=== PATIENT | male | born 1970 | race Caucasian/White ===

== ENCOUNTER 2016-10-30 22:07 | Emergency (ER) | payer MEDICARE, MEDICAID ==
[~2016-10-30 22:07] MED LIST: /CELE20CA PO; CITA10TA2 PO; HYDR5TAB23 PO; LISI5TAB PO; NEUR600T PO; OMEP40CA2 PO; OXYC20TA8 PO; PRAV80TA2 PO; VENTAER INH
[2016-10-30] MEDS ORDERED: HYDROmorphone HCL 1 MG/ML SYRINGE (J1170) As Ordered ONE ×2 (22:56→23:32)
[2016-10-30] MEDS ORDERED: NORCO, ANEXSIA 5/325MG TABLET (HYDROcodone/ACETAMINOPHEN) As Ordered ONE (23:58)
--- NOTE | 2016-10-31 00:07 | EDDOCDS ---
Nurse's Notes [facility] Name: Ziggy Thayer Age: 46 yrs Sex: Male : 1970 Arrival Date: 10/30/2016 Time: 22:07 Bed 14 Private MD: Delmy, Family Dr Diagnosis: Fracture of one rib, left side Presentation: 10/30 22:14 Presenting complaint: Patient states: chest pain, difficulty breathing, fell on ice af2 last Sunday and c/o pain to left ribs. Adult Sepsis Screening: The patient does not have new or worsening altered mentation. Patient has a respiratory rate of greater than or equal to 22 (1 point). Systolic blood pressure is greater than 100. Patient has a qSOFA score of 1- Negative Sepsis Screen. Suicide/Homicide risk assessment- the patient denies having any suicidal and/or homicidal ideations and does not present with any other emotional, behavioral or mental health complaints. Status: Patient is not a auto self service station attendant or dependent. Transition of care: patient was not received from another setting of care. 22:14 Acuity: LOCO Level 2 af2 22:14 Method Of Arrival: Walkin/Carried/Asstd af2 Triage Assessment: 22:20 General: Appears distressed, Behavior is cooperative. Pain: Location: Ribs Pain af2 currently is 10 out of 10 on a pain scale. HIV screening NA for this visit Offered previously. Respiratory: Onset: The symptoms/episode began/occurred a few days ago, Airway is patent Respiratory effort is labored, Breath sounds are diminished bilaterally. Breath sounds with wheezes bilaterally. Derm: Skin is normal. Historical: - Allergies: PENICILLINS (Upset stomach); Aspirin (Hives); - Home Meds: 1. morphine 15 mg Oral TbER 1 tab every 12 hours (Last dose: 10/30/2016 18:00) 2. hydrocodone-acetaminophen 10-325 mg Oral tab every 4 hours 3. pravastatin 80 mg oral tab 1 tab once daily 4. omeprazole 40 mg Oral cpDR 1 cap once daily 5. lisinopril 20 mg Oral tab once daily 6. carvedilol 6.25 mg oral tab Unknown - PMHx: Anxiety; GERD; herniated disc; hyperlipidemia; Hypertension; [place]; - PSHx: Hernia repair; foot surgery left; - Social history: Smoking status: Patient uses tobacco products, current every day smoker. No barriers to communication noted, The patient speaks fluent Macedonian. - Family history: Not pertinent. - : The pt / caregiver states he / she is not on anticoagulants. Home medication list is obtained from the patient. - Exposure Risk Screening:: None identified. Screenin:29 Screening information is obtained from the patient. Fall risk: No risks identified. af2 Assistance ADL's: requires no assistance with activities of daily living. Abuse/DV Screen: The patient / caregiver reports he/she is: not in a situation that causes fear, pain or injury. Nutritional screening: No deficits noted. Advance Directives: Currently, there is no health care proxy. home support is adequate. Assessment: 23:20 General: Appears in no apparent distress, comfortable, Behavior is appropriate for age, af2 cooperative. Cardiovascular: Heart tones S1 S2 present. Respiratory: Airway is patent Respiratory effort is labored, Breath sounds are diminished bilaterally. Derm: Skin is normal. 23:39 General: pt educated regarding importance of deep breaths, splinting the left side with af2 a pillow. demonstrates understanding.. 10/31 00:05 General: Appears in no apparent distress, comfortable, Behavior is appropriate for age, af2 cooperative. Neurological: Level of Consciousness is awake, alert, obeys commands, Oriented to person, place, time. Respiratory: Airway is patent Respiratory effort is even, unlabored. Derm: Skin is normal. Vital Signs: 10/30 22:08 BP 121 / 71; Pulse 96; Resp 22 S; Temp 96.3; Pulse Ox 97% on R/A; Weight 82.55 kg (R); dd6 Height 5 ft. 6 in. (167.64 cm) (R); 23:30 BP 129 / 75 LA Sitting (auto/); Pulse 96; Resp 18 S; Pulse Ox 95% on R/A; af2 23:59 BP 135 / 75; Pulse 95; Resp 18; Temp 97.3(O); Pulse Ox 94% on R/A; Pain 10/10; meghan 22:08 Body Mass Index 29.38 (82.55 kg, 167.64 cm) dd6 Vitals: 22:08 Log In Time: October 30, 2016 at 22:06. dd6 ED Course: 22:08 Patient visited by Desormeau, Nik, ORGANIZATIONAL DEVELOPMENT DIRECTOR. dd6 22:08 Unknown, Family is Private Physician. dd6 22:08 Patient moved to Waiting dd6 22:09 Patient moved to Pre RCE dd6 22:12 Velma Ding,AKANKSHA is Primary Nurse. ar3 22:12 Deyanira Gaitan RN is Primary Nurse. ar3 22:12 Patient moved to 14 ar3 22:15 Triage Initiated af2 22:22 Patient visited by Deyanira Gaitan RN. af2 22:24 Andrew Hilliard DO is Attending Physician. cs11 22:24 Patient visited by Andrew Hilliard DO. cs11 22:30 Patient visited by Madison Cifuentes, Screen Writer. jlm 22:30 EKG done. (by ED staff). Reviewed by Andrew Hilliard DO. jlm 23:02 Patient visited by Deyanira Gaitan RN. af2 23:21 Patient visited by Deyanira Gaitan RN. af2 23:29 The patient / caregiver is instructed regarding the plan of care and ED course. Patient af2 has correct armband on for positive identification. Placed in gown. 23:30 Patient visited by Deyanira Gaitan RN. af2 23:40 Patient visited by Deyanira Gaitan RN. af2 23:59 Patient visited by Nohelia Ornelas PCA. meghan 10/31 00:06 No IV's were initiated during this patient's visit. No procedures done that require af2 assistance. Administered Medications: 10/30 23:01 Drug: Dilaudid - HYDROmorphone 1 mg [hydromorphone 1 mg/mL injection syringe (1 mL)] af2 Route: IM; Site: left deltoid; 10/31 00:05 Follow up: Response: No significant change. af2 10/30 23:39 Drug: Dilaudid - HYDROmorphone 1 mg [hydromorphone 1 mg/mL injection syringe (1 mL)] af2 Route: IM; Site: right deltoid; 10/31 00:05 Follow up: Response: Pain is decreased af2 00:04 Drug: HYDROcodone-acetaminophen 4 pack- 1 packets [hydrocodone 5 mg-acetaminophen 325 af2 mg tablet (1 tabs)] {Co-Signature: nn1 (Qiana Ro RN).} Route: PO; 00:05 Follow up: Response: Pt left department before re-evaluation is appropriate af2 Order Results: There are currently no results for this order. Outcome: 10/30 23:34 Discharge ordered by Provider. cs11 10/31 00:06 Discharge Assessment: Patient awake, alert and oriented x 3. No cognitive and/or af2 functional deficits noted. Patient verbalized understanding of disposition instructions. patient administered narcotics - yes. Pt provided with safe discharge. The following High Risk Discharge criteria are identified: None. Discharged to home ambulatory, with family. Condition: stable. Discharge instructions given to patient, Instructed on discharge instructions, follow up and referral plans. medication usage, no driving heavy equipment, no drinking with medication, Demonstrated understanding of instructions, medications, Pt was receptive of discharge instructions/ teaching. No special radiology studies were completed. Property :Personal belongings accompany Pt. 00:06 Patient left the ED. af2 Signatures: Nik Hare, ORGANIZATIONAL DEVELOPMENT DIRECTOR ORGANIZATIONAL DEVELOPMENT DIRECTOR dd6 Ban Felder, ORGANIZATIONAL DEVELOPMENT DIRECTOR ORGANIZATIONAL DEVELOPMENT DIRECTOR ar3 Nohelia Ornelas, ORGANIZATIONAL DEVELOPMENT DIRECTOR ORGANIZATIONAL DEVELOPMENT DIRECTOR meghan Andrew Hilliard, DO cs11 Madison Cifuentes, Screen Writer Unit Deyanira Canales,RN RN af2 Qiana Ro RN nn1 AXEL
--- NOTE | 2016-10-31 00:07 | EDDOCDS ---
Physician Documentation [facility] Name: Ziggy Thayer Age: 46 yrs Sex: Male : 1970 Arrival Date: 10/30/2016 Time: 22:07 Bed 14 Private MD: Unknown, Family Dr Disposition: 10/30/16 23:34 Discharged to Home/Self Care. Impression: Fracture of one rib, left side. - Condition is Stable. - Discharge Instructions: Rib Fracture. - Medication Reconciliation, Local Pharmacy Hours form. - Follow up: Private Physician; When: Call to arrange an appointment; Reason: Recheck today's complaints. - Problem is new. - Symptoms are unchanged. Historical: - Allergies: PENICILLINS (Upset stomach); Aspirin (Hives); - Home Meds: 1. morphine 15 mg Oral TbER 1 tab every 12 hours (Last dose: 10/30/2016 18:00) 2. hydrocodone-acetaminophen 10-325 mg Oral tab every 4 hours 3. pravastatin 80 mg oral tab 1 tab once daily 4. omeprazole 40 mg Oral cpDR 1 cap once daily 5. lisinopril 20 mg Oral tab once daily 6. carvedilol 6.25 mg oral tab Unknown - PMHx: Anxiety; GERD; herniated disc; hyperlipidemia; Hypertension; [place]; - PSHx: Hernia repair; foot surgery left; - Social history: Smoking status: Patient uses tobacco products, current every day smoker. No barriers to communication noted, The patient speaks fluent Ethiopian. - Family history: Not pertinent. - : The pt / caregiver states he / she is not on anticoagulants. Home medication list is obtained from the patient. - Exposure Risk Screening:: None identified. Vital Signs: 10/30 22:08 BP 121 / 71; Pulse 96; Resp 22 S; Temp 96.3; Pulse Ox 97% on R/A; Weight 82.55 kg / dd6 181.99 lbs (R); Height 5 ft. 6 in. (167.64 cm) (R); 23:30 BP 129 / 75 LA Sitting (auto/); Pulse 96; Resp 18 S; Pulse Ox 95% on R/A; af2 23:59 BP 135 / 75; Pulse 95; Resp 18; Temp 97.3(O); Pulse Ox 94% on R/A; Pain 10/10; meghan 22:08 Body Mass Index 29.38 (82.55 kg, 167.64 cm) dd6 MDM: 22:13 ECG WITH READING ER PHYS+CARDIAG ordered. EDMS 22:27 Chest, 2 View (pa\E\lat) Ordered. EDMS 22:27 Ribs-Uni Without PA Chest Ordered. EDMS 22:51 Dilaudid - HYDROmorphone 1 mg IM once ordered. cs11 23:27 Dilaudid - HYDROmorphone 1 mg IM once ordered. cs11 23:33 HYDROcodone-acetaminophen 4 pack- 5 mg-325 mg 1 packets PO Per package directions; cs11 Dispense with patient. 1 po q4h prn for pain ordered. Administered Medications: 23:01 Drug: Dilaudid - HYDROmorphone 1 mg [hydromorphone 1 mg/mL injection syringe (1 mL)] af2 Route: IM; Site: left deltoid; 10/31 00:05 Follow up: Response: No significant change. af2 10/30 23:39 Drug: Dilaudid - HYDROmorphone 1 mg [hydromorphone 1 mg/mL injection syringe (1 mL)] af2 Route: IM; Site: right deltoid; 10/31 00:05 Follow up: Response: Pain is decreased af2 00:04 Drug: HYDROcodone-acetaminophen 4 pack- 1 packets [hydrocodone 5 mg-acetaminophen 325 af2 mg tablet (1 tabs)] {Co-Signature: nn1 (Qiana Ro RN).} Route: PO; 00:05 Follow up: Response: Pt left department before re-evaluation is appropriate af2 Signatures: Dispatcher [employer] EDAndrew Gil DO DO cs11 Deyanira Gaitan RN RN af2 Qiana Ro RN nn1 MTDD
--- NOTE | 2016-10-31 08:16 | REP ---
PA and lateral chest two views: Comparison is 10/30/2013. There is no pneumothorax, hemothorax or pulmonary contusion. Lung hernandez are clear. Cardiac size is normal. The renetta, mediastinum, and bony thorax unremarkable. I suspect there is a hiatal hernia. Impression: Negative chest except for probable hiatal hernia. Signed by Reji Morrow MD 10/31/2016 08:08 A
--- NOTE | 2016-10-31 08:18 | REP ---
Left ribs five views: There is no rib fracture or other rib abnormality. Signed by Reji Morrow MD 10/31/2016 08:09 A
--- NOTE | 2016-10-31 10:14 | ECGEPIP ---
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
--- NOTE | 2016-11-02 01:08 | EDDOCDS ---
Physician Documentation [facility] Name: Ziggy Thayer Jr Age: 46 yrs Sex: Male : 1970 Arrival Date: 10/30/2016 Time: 22:07 Bed 14 Private MD: Unknown, Family Dr Disposition: 10/30/16 23:34 Discharged to Home/Self Care. Impression: Fracture of one rib, left side. - Condition is Stable. - Discharge Instructions: Rib Fracture. - Medication Reconciliation, Local Pharmacy Hours form. - Follow up: Private Physician; When: Call to arrange an appointment; Reason: Recheck today's complaints. - Problem is new. - Symptoms are unchanged. Historical: - Allergies: PENICILLINS (Upset stomach); Aspirin (Hives); - Home Meds: 1. morphine 15 mg Oral TbER 1 tab every 12 hours (Last dose: 10/30/2016 18:00) 2. hydrocodone-acetaminophen 10-325 mg Oral tab every 4 hours 3. pravastatin 80 mg oral tab 1 tab once daily 4. omeprazole 40 mg Oral cpDR 1 cap once daily 5. lisinopril 20 mg Oral tab once daily 6. carvedilol 6.25 mg oral tab Unknown - PMHx: Anxiety; GERD; herniated disc; hyperlipidemia; Hypertension; [place]; - PSHx: Hernia repair; foot surgery left; - Social history: Smoking status: Patient uses tobacco products, current every day smoker. No barriers to communication noted, The patient speaks fluent Sinhala. - Family history: Not pertinent. - : The pt / caregiver states he / she is not on anticoagulants. Home medication list is obtained from the patient. - Exposure Risk Screening:: None identified. Vital Signs: 10/30 22:08 BP 121 / 71; Pulse 96; Resp 22 S; Temp 96.3; Pulse Ox 97% on R/A; Weight 82.55 kg / dd6 181.99 lbs (R); Height 5 ft. 6 in. (167.64 cm) (R); 23:30 BP 129 / 75 LA Sitting (auto/); Pulse 96; Resp 18 S; Pulse Ox 95% on R/A; af2 23:59 BP 135 / 75; Pulse 95; Resp 18; Temp 97.3(O); Pulse Ox 94% on R/A; Pain 10/10; meghan 22:08 Body Mass Index 29.38 (82.55 kg, 167.64 cm) dd6 MDM: 22:13 ECG WITH READING ER PHYS+CARDIAG ordered. EDMS 22:27 Chest, 2 View (pa\E\lat) Ordered. EDMS 22:27 Ribs-Uni Without PA Chest Ordered. EDMS 22:51 Dilaudid - HYDROmorphone 1 mg IM once ordered. cs11 23:27 Dilaudid - HYDROmorphone 1 mg IM once ordered. cs11 23:33 HYDROcodone-acetaminophen 4 pack- 5 mg-325 mg 1 packets PO Per package directions; cs11 Dispense with patient. 1 po q4h prn for pain ordered. 10/31 00:09 Financial registration complete. hs2 00:17 [facility] Payment Agreement was scanned into [employer] and attached to record. hs2 09:52 T-Sheet-- Draft Copy was scanned into [employer] and attached to record. gb 09:52 ECG/EKG was scanned into [employer] and attached to record. gb Administered Medications: 10/30 23:01 Drug: Dilaudid - HYDROmorphone 1 mg [hydromorphone 1 mg/mL injection syringe (1 mL)] af2 Route: IM; Site: left deltoid; 10/31 00:05 Follow up: Response: No significant change. af2 10/30 23:39 Drug: Dilaudid - HYDROmorphone 1 mg [hydromorphone 1 mg/mL injection syringe (1 mL)] af2 Route: IM; Site: right deltoid; 10/31 00:05 Follow up: Response: Pain is decreased af2 00:04 Drug: HYDROcodone-acetaminophen 4 pack- 1 packets [hydrocodone 5 mg-acetaminophen 325 af2 mg tablet (1 tabs)] {Co-Signature: nn1 (Qiana Ro RN).} Route: PO; 00:05 Follow up: Response: Pt left department before re-evaluation is appropriate af2 Signatures: Dispatcher [employer] EDMS Magalis Reeves, Reg Reg gb Andrew Hilliard, DO DO cs11 Deyanira Gaitan RN RN af2 Lydia Yuan, Reg Reg hs2 Qiana Ro RN nn1 The chart was reviewed and I authenticate all verbal orders and agree with the evaluation and treatment provided.Attachments: 00:17 [facility] Payment Agreement hs2 09:52 T-Sheet-- Draft Copy gb :52 ECG/EKG gb Chart Complete MTDD
--- NOTE | 2016-11-02 01:08 | EDDOCDS ---
Physician Documentation [facility] Name: Ziggy Thayer Jr Age: 46 yrs Sex: Male : 1970 Arrival Date: 10/30/2016 Time: 22:07 Bed 14 Private MD: Unknown, Family Dr Disposition: 10/30/16 23:34 Discharged to Home/Self Care. Impression: Fracture of one rib, left side. - Condition is Stable. - Discharge Instructions: Rib Fracture. - Medication Reconciliation, Local Pharmacy Hours form. - Follow up: Private Physician; When: Call to arrange an appointment; Reason: Recheck today's complaints. - Problem is new. - Symptoms are unchanged. Historical: - Allergies: PENICILLINS (Upset stomach); Aspirin (Hives); - Home Meds: 1. morphine 15 mg Oral TbER 1 tab every 12 hours (Last dose: 10/30/2016 18:00) 2. hydrocodone-acetaminophen 10-325 mg Oral tab every 4 hours 3. pravastatin 80 mg oral tab 1 tab once daily 4. omeprazole 40 mg Oral cpDR 1 cap once daily 5. lisinopril 20 mg Oral tab once daily 6. carvedilol 6.25 mg oral tab Unknown - PMHx: Anxiety; GERD; herniated disc; hyperlipidemia; Hypertension; [place]; - PSHx: Hernia repair; foot surgery left; - Social history: Smoking status: Patient uses tobacco products, current every day smoker. No barriers to communication noted, The patient speaks fluent Mohawk. - Family history: Not pertinent. - : The pt / caregiver states he / she is not on anticoagulants. Home medication list is obtained from the patient. - Exposure Risk Screening:: None identified. Vital Signs: 10/30 22:08 BP 121 / 71; Pulse 96; Resp 22 S; Temp 96.3; Pulse Ox 97% on R/A; Weight 82.55 kg / dd6 181.99 lbs (R); Height 5 ft. 6 in. (167.64 cm) (R); 23:30 BP 129 / 75 LA Sitting (auto/); Pulse 96; Resp 18 S; Pulse Ox 95% on R/A; af2 23:59 BP 135 / 75; Pulse 95; Resp 18; Temp 97.3(O); Pulse Ox 94% on R/A; Pain 10/10; meghan 22:08 Body Mass Index 29.38 (82.55 kg, 167.64 cm) dd6 MDM: 22:13 ECG WITH READING ER PHYS+CARDIAG ordered. EDMS 22:27 Chest, 2 View (pa\E\lat) Ordered. EDMS 22:27 Ribs-Uni Without PA Chest Ordered. EDMS 22:51 Dilaudid - HYDROmorphone 1 mg IM once ordered. cs11 23:27 Dilaudid - HYDROmorphone 1 mg IM once ordered. cs11 23:33 HYDROcodone-acetaminophen 4 pack- 5 mg-325 mg 1 packets PO Per package directions; cs11 Dispense with patient. 1 po q4h prn for pain ordered. 10/31 00:09 Financial registration complete. hs2 00:17 REPLACED BY [facility] Payment Agreement was scanned into [employer] and attached to record. hs2 09:52 T-Sheet-- Draft Copy was scanned into [employer] and attached to record. gb 09:52 ECG/EKG was scanned into [employer] and attached to record. gb Administered Medications: 10/30 23:01 Drug: Dilaudid - HYDROmorphone 1 mg [hydromorphone 1 mg/mL injection syringe (1 mL)] af2 Route: IM; Site: left deltoid; 10/31 00:05 Follow up: Response: No significant change. af2 10/30 23:39 Drug: Dilaudid - HYDROmorphone 1 mg [hydromorphone 1 mg/mL injection syringe (1 mL)] af2 Route: IM; Site: right deltoid; 10/31 00:05 Follow up: Response: Pain is decreased af2 00:04 Drug: HYDROcodone-acetaminophen 4 pack- 1 packets [hydrocodone 5 mg-acetaminophen 325 af2 mg tablet (1 tabs)] {Co-Signature: nn1 (Qiana Ro RN).} Route: PO; 00:05 Follow up: Response: Pt left department before re-evaluation is appropriate af2 Signatures: Dispatcher [employer] EDMS Magalis Reeves, Reg Reg gb Andrew Hilliard, DO DO cs11 Deyanira Gaitan RN RN af2 Lydia Yuan, Reg Reg hs2 Qiana Ro RN nn1 The chart was reviewed and I authenticate all verbal orders and agree with the evaluation and treatment provided.Attachments: 00:17 REPLACED BY [facility] Payment Agreement hs2 09:52 T-Sheet-- Draft Copy gb :52 ECG/EKG gb Chart Complete MTDD
--- NOTE | 2016-11-02 01:08 | EDDOCDS ---
Nurse's Notes [facility] Name: Krys Thayer Jr Age: 46 yrs Sex: Male : 1970 Arrival Date: 10/30/2016 Time: 22:07 Bed 14 Private MD: Delmy, Family Dr Diagnosis: Fracture of one rib, left side Presentation: 10/30 22:14 Presenting complaint: Patient states: chest pain, difficulty breathing, fell on ice af2 last Sunday and c/o pain to left ribs. Adult Sepsis Screening: The patient does not have new or worsening altered mentation. Patient has a respiratory rate of greater than or equal to 22 (1 point). Systolic blood pressure is greater than 100. Patient has a qSOFA score of 1- Negative Sepsis Screen. Suicide/Homicide risk assessment- the patient denies having any suicidal and/or homicidal ideations and does not present with any other emotional, behavioral or mental health complaints. 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 Transition of care: patient was not received from another setting of care. 22:14 Acuity: LOCO Level 2 af2 22:14 Method Of Arrival: Walkin/Carried/Asstd af2 Triage Assessment: 22:20 General: Appears distressed, Behavior is cooperative. Pain: Location: Ribs Pain af2 currently is 10 out of 10 on a pain scale. HIV screening NA for this visit Offered previously. Respiratory: Onset: The symptoms/episode began/occurred a few days ago, Airway is patent Respiratory effort is labored, Breath sounds are diminished bilaterally. Breath sounds with wheezes bilaterally. Derm: Skin is normal. Historical: - Allergies: PENICILLINS (Upset stomach); Aspirin (Hives); - Home Meds: 1. morphine 15 mg Oral TbER 1 tab every 12 hours (Last dose: 10/30/2016 18:00) 2. hydrocodone-acetaminophen 10-325 mg Oral tab every 4 hours 3. pravastatin 80 mg oral tab 1 tab once daily 4. omeprazole 40 mg Oral cpDR 1 cap once daily 5. lisinopril 20 mg Oral tab once daily 6. carvedilol 6.25 mg oral tab Unknown - PMHx: Anxiety; GERD; herniated disc; hyperlipidemia; Hypertension; GA; - PSHx: Hernia repair; foot surgery left; - Social history: Smoking status: Patient uses tobacco products, current every day smoker. No barriers to communication noted, The patient speaks fluent [place]. - Family history: Not pertinent. - : The pt / caregiver states he / she is not on anticoagulants. Home medication list is obtained from the patient. - Exposure Risk Screening:: None identified. Screenin:29 Screening information is obtained from the patient. Fall risk: No risks identified. af2 Assistance ADL's: requires no assistance with activities of daily living. Abuse/DV Screen: The patient / caregiver reports he/she is: not in a situation that causes fear, pain or injury. Nutritional screening: No deficits noted. Advance Directives: Currently, there is no health care proxy. home support is adequate. Assessment: 23:20 General: Appears in no apparent distress, comfortable, Behavior is appropriate for age, af2 cooperative. Cardiovascular: Heart tones S1 S2 present. Respiratory: Airway is patent Respiratory effort is labored, Breath sounds are diminished bilaterally. Derm: Skin is normal. 23:39 General: pt educated regarding importance of deep breaths, splinting the left side with af2 a pillow. demonstrates understanding.. 10/31 00:05 General: Appears in no apparent distress, comfortable, Behavior is appropriate for age, af2 cooperative. Neurological: Level of Consciousness is awake, alert, obeys commands, Oriented to person, place, time. Respiratory: Airway is patent Respiratory effort is even, unlabored. Derm: Skin is normal. Vital Signs: 10/30 22:08 BP 121 / 71; Pulse 96; Resp 22 S; Temp 96.3; Pulse Ox 97% on R/A; Weight 82.55 kg (R); dd6 Height 5 ft. 6 in. (167.64 cm) (R); 23:30 BP 129 / 75 LA Sitting (auto/); Pulse 96; Resp 18 S; Pulse Ox 95% on R/A; af2 23:59 BP 135 / 75; Pulse 95; Resp 18; Temp 97.3(O); Pulse Ox 94% on R/A; Pain 10/10; meghan 22:08 Body Mass Index 29.38 (82.55 kg, 167.64 cm) dd6 Vitals: 22:08 Log In Time: October 30, 2016 at 22:06. dd6 ED Course: 22:08 Patient visited by Nik Hare PCA. dd6 22:08 Unknown, Family is Private Physician. dd6 22:08 Patient moved to Waiting dd6 22:09 Patient moved to Pre RCE dd6 22:12 Velma Ding,AKANKSHA is Primary Nurse. ar3 22:12 Deyanira Gaitan RN is Primary Nurse. ar3 22:12 Patient moved to 14 ar3 22:15 Triage Initiated af2 22:22 Patient visited by Deyanira Gaitan RN. af2 22:24 Shelia Hobson DO is Attending Physician. cs11 22:24 Patient visited by Shelia Hobson DO. cs11 22:30 Patient visited by Madison Cifuentes, Concrete Building Assembler. jlm 22:30 EKG done. (by ED staff). Reviewed by Shelia Hobson DO. jlm 23:02 Patient visited by Deyanira Gaitan RN. af2 23:21 Patient visited by Deyanira Gaitan RN. af2 23:29 The patient / caregiver is instructed regarding the plan of care and ED course. Patient af2 has correct armband on for positive identification. Placed in gown. 23:30 Patient visited by Deyanira Gaitan RN. af2 23:40 Patient visited by Deyanira Gaitan RN. af2 23:59 Patient visited by Nohelia Ornelas PCA. meghan 10/31 00:06 No IV's were initiated during this patient's visit. No procedures done that require af2 assistance. 00:17 [facility] Payment Agreement was scanned into [employer] and attached to record. hs2 00:30 Patient name changed from Krys\S\M\S\Jeovany\S\ to Krys\S\M\S\Jeovany Jr. EDMS 08:54 Chest, 2 View (pa\E\lat) Returned. EDMS 08:54 Ribs-Uni Without PA Chest Returned. EDMS 09:52 T-Sheet-- Draft Copy was scanned into [employer] and attached to record. gb 09:52 ECG/EKG was scanned into [employer] and attached to record. gb 10:16 EKG-ADULT Returned. EDMS Administered Medications: 10/30 23:01 Drug: Dilaudid - HYDROmorphone 1 mg [hydromorphone 1 mg/mL injection syringe (1 mL)] af2 Route: IM; Site: left deltoid; 10/31 00:05 Follow up: Response: No significant change. af2 10/30 23:39 Drug: Dilaudid - HYDROmorphone 1 mg [hydromorphone 1 mg/mL injection syringe (1 mL)] af2 Route: IM; Site: right deltoid; 10/31 00:05 Follow up: Response: Pain is decreased af2 00:04 Drug: HYDROcodone-acetaminophen 4 pack- 1 packets [hydrocodone 5 mg-acetaminophen 325 af2 mg tablet (1 tabs)] {Co-Signature: nn1 (Qiana Ro RN).} Route: PO; 00:05 Follow up: Response: Pt left department before re-evaluation is appropriate af2 Order Results: Radiology Order: EKG-ADULT Test: EKG-ADULT REASON FOR EXAMINATION: Shortness of Breath; Stationary ECG Study; [facility] - ED; ; Test Date: 2016-10-30; Pat Name: KRYS THAYER JR Department:; Room: -; Gender: M 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; : 1970 Requested By: SHELIA HOBSON; Order Number: [id number] Reading MD: Jef Stanley; Measurements; Intervals [place]; Rate: 88 P: 9; UT: 136 QRS: 1; QRSD: 108 T: 31; QT: 348; QTc: 423; Interpretive Statements; SINUS RHYTHM; INDETERMINATE AXIS; INCOMPLETE RIGHT BUNDLE BRANCH BLOCK; ; Electronically Signed On 10-31-2016 10:13:33 EST by Jef Stanley; Radiology Order: Chest, 2 View (pa\E\lat) Test: Chest, 2 View (pa\E\lat) REASON FOR EXAMINATION: Shortness of Breath; PA and lateral chest two views:; ; Comparison is 10/30/2013.; ; There is no pneumothorax, hemothorax or pulmonary contusion. Lung hernandez are; clear. Cardiac size is normal. The renetta, mediastinum, and bony thorax; unremarkable.; ; I suspect there is a hiatal hernia.; ; Impression:; ; Negative chest except for probable hiatal hernia.; ; ; Signed by; Reji Morrow MD 10/31/2016 08:08 A; Radiology Order: Ribs-Uni Without PA Chest Test: Ribs-Uni Without PA Chest REASON FOR EXAMINATION: Trauma; Left ribs five views:; ; There is no rib fracture or other rib abnormality.; ; ; Signed by; Reji Morrow MD 10/31/2016 08:09 A; Outcome: 10/30 23:34 Discharge ordered by Provider. cs11 10/31 00:06 Discharge Assessment: Patient awake, alert and oriented x 3. No cognitive and/or af2 functional deficits noted. Patient verbalized understanding of disposition instructions. patient administered narcotics - yes. Pt provided with safe discharge. The following High Risk Discharge criteria are identified: None. Discharged to home ambulatory, with family. Condition: stable. Discharge instructions given to patient, Instructed on discharge instructions, follow up and referral plans. medication usage, no driving heavy equipment, no drinking with medication, Demonstrated understanding of instructions, medications, Pt was receptive of discharge instructions/ teaching. No special radiology studies were completed. Property :Personal belongings accompany Pt. 00:06 Patient left the ED. af2 Signatures: Dispatcher [employer] EDMS Magalis Reeves, Reg Reg gb Nik Hare, FLOOR COVERING PRINTER ASSISTANT FLOOR COVERING PRINTER ASSISTANT dd6 Ban Felder, FLOOR COVERING PRINTER ASSISTANT FLOOR COVERING PRINTER ASSISTANT ar3 Nohelia Ornelas, FLOOR COVERING PRINTER ASSISTANT FLOOR COVERING PRINTER ASSISTANT Shelia Shepard, DO DO cs11 Madison Cifuentes, Concrete Building Assembler Unit Deyanira CanalesRN RN af2 Lydia Yuan, Reg Reg hs2 Qiana Ro RN nn1 Chart Complete MTDD
== END 2016-10-31 00:06 | disposition home or self-care (01) ==
LOC: M ED 22:07
DX: S22.39XA Fracture of one rib, unspecified side, initial encounter for closed fracture (principal); W00.9XXA Unspecified fall due to ice and snow, initial encounter; Y92.89 Other specified places as the place of occurrence of the external cause; Y93.01 Activity, walking, marching and hiking; Y99.8 Other external cause status; F41.9 Anxiety disorder, unspecified; K21.9 Gastro-esophageal reflux disease without esophagitis; E78.5 Hyperlipidemia, unspecified; I10 Essential (primary) hypertension; I25.2 Old myocardial infarction; F17.200 Nicotine dependence, unspecified, uncomplicated; Z79.891 Long term (current) use of opiate analgesic; Z79.899 Other long term (current) drug therapy; Z88.0 Allergy status to penicillin; Z88.6 Allergy status to analgesic agent
CPT/HCPCS: 71020; 71100; 93005; 96372; 99283; J1170

== ENCOUNTER 2017-04-21 13:20 | Emergency (ER) | payer MEDICARE, MEDICAID ==
[~2017-04-21] VITALS: Ht 167.6 cm; Wt 84.1 kg
[2017-04-21] MEDS ORDERED: MORP1CAP47 PO (13:38)
[2017-04-21] MEDS ORDERED: CLOP75TA2 PO (13:38)
[2017-04-21 14:13] LABS: BASO # 0.1 K/mm3 (0.0-0.2); BASO % 1.3 % (0.0-1.0); EOS # 0.3 K/mm3 (0.0-0.50); EOS % 5.1 % (0.0-3.0); LARGE UNSTAINED CELL # 0.2 K/mm3 (0.0-0.4); LARGE UNSTAINED CELL % 2.5 % (0.0-4.0); LYMPH # 1.7 K/mm3 (1.5-4.5); LYMPH % 24.2 % (24.0-44.0); MEAN CORPUSCULAR HEMOGLOBIN 32.7 pg (27.0-33.0); MEAN CORPUSCULAR HGB CONC 34.7 g/dl (32.0-36.5); MEAN CORPUSCULAR VOLUME 94.2 fl (80.0-96.0); MONO # 0.4 K/mm3 (0.0-0.8); MONO % 6.7 % (0.0-5.0); NEUTROPHILS # 3.7 K/mm3 (1.8-7.7); NEUTROPHILS % 60.1 % (36.0-66.0); PLATELET COUNT, AUTOMATED 183 k/mm3 (150-450); RED CELL DISTRIBUTION WIDTH 13.4 % (11.5-14.5); WHITE BLOOD COUNT 6.2 K/mm3 (4.0-10.0)
--- NOTE | 2017-04-21 14:16 | REP ---
Chest one-view HISTORY: Chest pain Comparison: 10/30/2016 The lungs are clear. The heart is normal in size. The pulmonary vasculature is normal in appearance. A hiatal hernia is present. Impression: No acute disease. Signed by Mono Payne MD 04/21/2017 02:08 P
[2017-04-21 14:41] LABS: ALBUMIN 3.3 GM/DL (3.2-5.2); ALBUMIN/GLOBULIN RATIO 0.83 (1.00-1.93); ALKALINE PHOSPHATASE 78 U/L (45-117); ALT/SGPT 36 U/L (12-78); ANION GAP 6 MEQ/L (8-16); AST/SGOT 30 U/L (15-37); BILIRUBIN,DIRECT 0.1 MG/DL (0.0-0.2); BILIRUBIN,TOTAL 0.3 MG/DL (0.2-1.0); BLOOD UREA NITROGEN 6 MG/DL (7-18); CALCIUM LEVEL 8.9 MG/DL (8.5-10.1); CARBON DIOXIDE LEVEL 28 MEQ/L (21-32); CHLORIDE LEVEL 99 MEQ/L (98-107); CREATININE FOR GFR 0.71 MG/DL (0.70-1.30); FREE T4 0.98 NG/DL (0.76-1.46); GLOMERULAR FILTRATION RATE > 60.0 (>60); GLUCOSE, FASTING 108 MG/DL (70-105); SODIUM LEVEL 133 MEQ/L (136-145); TOTAL PROTEIN 7.3 GM/DL (6.4-8.2)
[2017-04-21] MEDS ORDERED: NS 1,000 ML IV ONE (14:45)
[2017-04-21 15:07] LABS: AMYLASE 67 U/L (25-115)
[2017-04-21] MEDS ORDERED: ONDANSETRON 4MG/2ML VIAL (J2405) IV ONE (15:45)
[2017-04-21] MEDS ORDERED: MORPHINE 4 MG/ML 1ML SYRINGE IV ONE (15:45)
[2017-04-21] MEDS ORDERED: ISOVUE-370 76% 100ML VIAL (Q9967) As Ordered ONE (16:00)
--- NOTE | 2017-04-21 17:01 | ECGEPIP ---
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
[2017-04-21] MEDS ORDERED: DOXYCYCLINE HYCLATE 100 MG TAB PO ONE (18:00)
--- NOTE | 2017-04-21 18:00 | REPUSA ---
History: shortness of breath Comparison: No prior CTA of the chest available Technique: A CT-pulmonary angiogram was performed. A dose of intravenous contrast was administered. A xial images were displayed, as were sagittal and coronal reconstructions. A 3-D model was also render ed. Exam DLP: Findings: No CT evidence of pulmonary embolism is identified. There is no evidence of thoracic aortic aneurysm or dissection. No air space consolidation is identified in the lungs. There is no evidence of pulmonary edema. No pa thologically enlarged hilar or mediastinal lymph nodes are identified. No significant pleural or carolyne cardial fluid collection is seen. There is no evidence of pneumothorax. Large hiatal hernia is noted. Mild degenerative changes are noted in the spine. Impression: No evidence of pulmonary embolism is identified. Large hiatal hernia is noted.
--- NOTE | 2017-04-21 18:10 | REPUSA ---
CLINICAL HISTORY: Abdominal pain. TECHNIQUE: Multiple axial, sagittal and coronal CT images were obtained through the abdomen and pelvi s after administration of intravenous contrast material. COMMENTS: The liver is of uniform attenuation without mass or defect. There is no intra or extrahepatic biliary ductal dilatation. The spleen is normal. The gallbladder is within normal limits. The pancreas is of normal contour and attenuation characteristics. There is no evidence of adrenal mass. Both kidneys demonstrate prompt and equal nephrograms. The kidneys are normal in size, shape and conf iguration. There is no evidence of renal or ureteral mass. No renal or ureteral calculi are identifie d. There is no hydroureter or hydronephrosis. No evidence for appendicitis. Fluid-filled thick walled loops of ileum are noted compatible with ile itis. Large hiatal hernia is noted. No evidence for small or large bowel obstruction. Small left inguinal hernia is noted containing nonobstructed sigmoid colon. There is no evidence of abdominal ascites or lymphadenopathy. Small fat-containing umbilical hernia is noted. There is no evidence of intrinsic or extrinsic bladder mass. There is no pelvic ascites or lymphadeno preston. Images of the lung bases show no evidence of pleural or parenchymal mass. There are no pleural effusi ons. The bony structures are free of lytic or blastic lesions. Multilevel degenerative changes are seen in volving the thoracolumbar spine. Scattered calcifications are seen involving the aorta and major bran ches compatible with atherosclerosis. IMPRESSION: Fluid-filled thick walled loops of ileum are noted compatible with ileitis. Large hiatal hernia is noted. Small left inguinal hernia is noted containing nonobstructed sigmoid colon. Small fat-containing umbilical hernia is noted. Thank you for your kind referral of this patient.
[2017-04-21] MEDS ORDERED: DOXY100C37 PO (18:29)
[2017-04-21 19:18] VITALS: BP 125/77
[2017-04-26 00:07] LABS: Lyme Disease IgG Ab 18 kDa Ban Absent (.); Lyme Disease IgG Ab 23 kDa Ban Absent (.); Lyme Disease IgG Ab 28 kDa Ban Absent (.); Lyme Disease IgG Ab 30 kDa Ban Absent (.); Lyme Disease IgG Ab 39 kDa Ban Absent (.); Lyme Disease IgG Ab 41 kDa Ban Present (.); Lyme Disease IgG Ab 45 kDa Ban Absent (.); Lyme Disease IgG Ab 58 kDa Ban Absent (.); Lyme Disease IgG Ab 66 kDa Ban Absent (.); Lyme Disease IgG Ab 93 kDa Ban Absent (.); Lyme Disease IgG West Blot Int Negative (.); Lyme Disease IgG/IgM Antibodie <0.91 ISR (0.00-0.90); Lyme Disease IgM Ab 23 kDa Ban Present (.); Lyme Disease IgM Ab 39 kDa Ban Absent (.); Lyme Disease IgM Ab 41 kDa Ban Present (.); Lyme Disease IgM Ab Quantitati 2.31 index (0.00-0.79); Lyme Disease IgM West Blot Int Positive (.)
== END 2017-04-21 19:10 | disposition left against medical advice (07) ==
LOC: M ED 13:20
DX: I25.110 Atherosclerotic heart disease of native coronary artery with unstable angina pectoris (principal); A69.20 Lyme disease, unspecified; K52.9 Noninfective gastroenteritis and colitis, unspecified; R00.0 Tachycardia, unspecified; I45.10 Unspecified right bundle-branch block; R10.31 Right lower quadrant pain; R11.2 Nausea with vomiting, unspecified; R06.02 Shortness of breath; I10 Essential (primary) hypertension; Z95.5 Presence of coronary angioplasty implant and graft; F17.210 Nicotine dependence, cigarettes, uncomplicated; Z79.899 Other long term (current) drug therapy; Z79.02 Long term (current) use of antithrombotics/antiplatelets; Z79.891 Long term (current) use of opiate analgesic; Z88.8 Allergy status to other drugs, medicaments and biological substances; Z88.0 Allergy status to penicillin; Z88.6 Allergy status to analgesic agent
CPT/HCPCS: 71010; 71275; 74177; 80048; 80076; 81001; 82150; 82550; 82553; 83690; 84439; 84443; 84484; 85025; 85652; 86617; 87086; 93005; 93041; 94760; 96374; 96375; 99285; J2405; Q9967

== ENCOUNTER 2017-05-24 08:49 | Emergency (ER) | payer MEDICARE, MEDICAID ==
[~2017-05-24] VITALS: Ht 167.6 cm; Wt 85.9 kg
[~2017-05-24 08:49] MED LIST changes: +CLOP75TA2 PO; +DOXY100C37 PO; +MORP1CAP47 PO
[2017-05-24] MEDS ORDERED: ASPIRIN 81 MG CHEW TABLET PO ONE (09:00)
[2017-05-24] MEDS ORDERED: HYDR-3719 (09:02)
[2017-05-24] MEDS ORDERED: MORP-38 PO (09:02)
[2017-05-24] MEDS ORDERED: diphenhydrAMINE INJ 50MG/ML VIAL (J1200) IV STA (09:10)
[2017-05-24] MEDS ORDERED: NITROGLYCERIN 0.3 MG SUBL TAB SL STA (09:22)
[2017-05-24] MEDS ORDERED: fentaNYL 100 MCG/2 ML INJECTION (J3010) IV ONE ×2 (09:30→12:00)
[2017-05-24 09:47] LABS: BASO % 0.3 % (0.0-1.0); EOS # 0.4 K/mm3 (0.0-0.50); EOS % 6.5 % (0.0-3.0); LARGE UNSTAINED CELL # 0.1 K/mm3 (0.0-0.4); LARGE UNSTAINED CELL % 1.5 % (0.0-4.0); LYMPH # 1.1 K/mm3 (1.5-4.5); MEAN CORPUSCULAR HEMOGLOBIN 33.3 pg (27.0-33.0); MEAN CORPUSCULAR VOLUME 95.1 fl (80.0-96.0); MONO # 0.3 K/mm3 (0.0-0.8); MONO % 5.3 % (0.0-5.0); NEUTROPHILS % 67.3 % (36.0-66.0); PLATELET COUNT, AUTOMATED 202 k/mm3 (150-450); RED CELL DISTRIBUTION WIDTH 13.2 % (11.5-14.5); WHITE BLOOD COUNT 5.9 K/mm3 (4.0-10.0)
[2017-05-24 09:49] LABS: ANION GAP 5 MEQ/L (8-16); BLOOD UREA NITROGEN 13 MG/DL (7-18); CALCIUM LEVEL 9.2 MG/DL (8.5-10.1); CARBON DIOXIDE LEVEL 29 MEQ/L (21-32); CHLORIDE LEVEL 102 MEQ/L (98-107); CREATININE FOR GFR 0.62 MG/DL (0.70-1.30); GLOMERULAR FILTRATION RATE > 60.0 (>60); GLUCOSE, FASTING 118 MG/DL (70-105); POTASSIUM SERUM 4.5 MEQ/L (3.5-5.1); SODIUM LEVEL 136 MEQ/L (136-145)
[2017-05-24 10:05] VITALS: BP 119/70
[2017-05-24] MEDS ORDERED: CLOPIDOGREL 300 MG TAB (PLAVIX) PO STA (13:12)
[2017-05-24] MEDS ORDERED: HEPARIN SOD (PORCINE) 5000 UNITS/ML VIAL IV ONE (13:15)
[2017-05-24] MEDS ORDERED: HEPARIN DRIP 25,000 UNITS in APPROPRIATE DILUENT 1 EA IV SCH (13:16)
--- NOTE | 2017-05-24 13:19 | REP ---
CHEST, SINGLE VIEW: COMPARISON: 04/21/2017. There is no evidence of acute infiltrate. No pleural effusion is seen. The heart is normal in size. The mediastinal silhouette is unremarkable. The visualized osseous structures are intact. IMPRESSION: No acute pulmonary disease. Signed by Reji Amado MD 05/24/2017 05:01 P
[2017-05-24 13:32] LABS: INR 0.95
[2017-05-24] MEDS ORDERED: NS 500 ML IV ONE (13:45)
[2017-05-24 14:10] VITALS: BP 125/72
--- NOTE | 2017-05-25 08:43 | ECGEPIP ---
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
--- NOTE | 2017-05-25 08:45 | ECGEPIP ---
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
== END 2017-05-24 14:16 | disposition short-term general hospital (02) ==
LOC: M ED 08:49
DX: I21.4 Non-ST elevation (NSTEMI) myocardial infarction (principal); I11.0 Hypertensive heart disease with heart failure; E78.5 Hyperlipidemia, unspecified; F17.200 Nicotine dependence, unspecified, uncomplicated; Z95.5 Presence of coronary angioplasty implant and graft; Z82.49 Family history of ischemic heart disease and other diseases of the circulatory system; Z86.19 Personal history of other infectious and parasitic diseases; Z79.891 Long term (current) use of opiate analgesic; Z79.899 Other long term (current) drug therapy; Z88.0 Allergy status to penicillin; Z88.6 Allergy status to analgesic agent; Z88.8 Allergy status to other drugs, medicaments and biological substances; Z91.030 Bee allergy status
CPT/HCPCS: 36415; 71010; 80048; 82550; 82553; 83880; 84484; 85025; 85610; 85730; 93005; 93041; 94760; 96374; 96375; 96376; 99285; J1200; J3010

== ENCOUNTER 2017-07-03 23:57 | Inpatient (IN) | payer MEDICARE, MEDICAID ==
[~2017-07-03] VITALS: Ht 167.6 cm; Wt 82.0 kg
[~2017-07-03 23:57] MED LIST changes: +HYDR-3719; +MORP-38 PO
[2017-07-04] MEDS ORDERED: MORPHINE 4 MG/ML 1ML SYRINGE IV ONE ×3 (00:45→04:30)
[2017-07-04] MEDS ORDERED: ONDANSETRON 4MG/2ML VIAL (J2405) IV ONE (00:45)
[2017-07-04] MEDS ORDERED: NS 1,000 ML IV ONE (01:00)
[2017-07-04 01:13] LABS: BASO % 0.4 % (0.0-1.0); EOS # 0.5 10^3/uL (0.0-0.50); IMMATURE GRANULOCYTE % 0.4 % (0-0); LYMPH # 2.6 10^3/uL (1.5-4.5); LYMPH % 27.8 % (24.0-44.0); MEAN CORPUSCULAR HEMOGLOBIN 32.8 pg (27.0-33.0); MEAN CORPUSCULAR HGB CONC 35.6 g/dl (32.0-36.5); MEAN CORPUSCULAR VOLUME 92.3 fl (80.0-96.0); MONO # 0.7 10^3/uL (0.0-0.8); MONO % 7.6 % (0.0-5.0); NEUTROPHILS # 5.5 10^3/uL (1.8-7.7); NEUTROPHILS % 58.8 % (36.0-66.0); PLATELET COUNT, AUTOMATED 189 10^3/uL (150-450); WHITE BLOOD COUNT 9.4 10^3/uL (4.0-10.0)
[2017-07-04 01:37] LABS: ALBUMIN 3.8 GM/DL (3.2-5.2); ALBUMIN/GLOBULIN RATIO 1.09 (1.00-1.93); ALKALINE PHOSPHATASE 65 U/L (45-117); ALT/SGPT 64 U/L (12-78); AMYLASE 255 U/L (25-115); ANION GAP 8 MEQ/L (8-16); AST/SGOT 57 U/L (15-37); BILIRUBIN,DIRECT 0.1 MG/DL (0.0-0.2); BILIRUBIN,TOTAL 0.3 MG/DL (0.2-1.0); BLOOD UREA NITROGEN 5 MG/DL (7-18); CALCIUM LEVEL 8.4 MG/DL (8.5-10.1); CARBON DIOXIDE LEVEL 26 MEQ/L (21-32); CHLORIDE LEVEL 96 MEQ/L (98-107); CREATININE FOR GFR 0.71 MG/DL (0.70-1.30); GLOMERULAR FILTRATION RATE > 60.0 (>60); GLUCOSE, FASTING 87 MG/DL (70-105); SODIUM LEVEL 130 MEQ/L (136-145); TOTAL PROTEIN 7.3 GM/DL (6.4-8.2)
[2017-07-04] MEDS ORDERED: NICOTINE 21MG/24HR 1 EA TRANSDERMAL TD ONE (02:15)
[2017-07-04] MEDS ORDERED: GASTROGRAFIN SOLUTION 30ML PO ONE (02:30)
[2017-07-04] MEDS ORDERED: GASTROGRAFIN SOLUTION 30ML (Q9963) PO ONE (03:00)
[2017-07-04] MEDS ORDERED: ISOVUE-370 76% 100ML VIAL (Q9967) As Ordered ONE (04:02)
--- NOTE | 2017-07-04 05:10 | REPUSA ---
CLINICAL HISTORY: Abdominal pain. TECHNIQUE: Multiple axial, sagittal and coronal CT images were obtained through the abdomen and pelvi s after administration of oral and intravenous contrast material. COMMENTS: Comparison to the prior exam on 04/21/2017. Again are noted fat-containing inguinal hernias. The sigmoid colon is not in the hernia. Mild fat stranding surrounding the proximal aspect of the sigmoid colon with a minimal thickening of its wall. Moderate diffuse thickening of the wall of the bladder. Mild prostatomegaly. Prostatic calcifications. Unchanged moderate sliding hiatal hernia. The liver is moderately enlarged with decreased attenuation without mass or defect. There is no intra or extrahepatic biliary ductal dilatation. The spleen is normal. The gallbladder is within normal li mits. The pancreas is of normal contour and attenuation characteristics. There is no evidence of adre nal mass. Both kidneys demonstrate prompt and equal nephrograms. The kidneys are normal in size, shape and conf iguration. There is no evidence of renal or ureteral mass. No renal or ureteral calculi are identifie d. There is no hydroureter or hydronephrosis. No evidence for appendicitis. No evidence for small or large bowel obstruction. There is no evidence of abdominal ascites or lympha denopathy. There is no evidence of intrinsic or extrinsic bladder mass. There is no pelvic ascites or lymphadeno preston. Images of the lung bases show no evidence of pleural or parenchymal mass. There are no pleural effusi ons. The bony structures are free of lytic or blastic lesions. Multilevel degenerative changes are seen in volving the thoracolumbar spine. Scattered calcifications are seen involving the aorta and major bran ches compatible with atherosclerosis. IMPRESSION: Hepatomegaly with fatty liver infiltration. Unchanged sliding hiatal hernia. Suspected mild acute inflammatory changes of the proximal sigmoid colon. Uncomplicated hernias of the anterior abdominal wall. Prostatomegaly. Thickened bladder. Underdistention, spasm, chronic bladder outflow obstruction changes versus cystiti s. Thank you for your kind referral of this patient.
[2017-07-04] MEDS ORDERED: PANT40TA2 PO (05:48)
[2017-07-04] MEDS ORDERED: LISI40TAB PO (05:50)
[2017-07-04] MEDS ORDERED: CITA20TA4 PO (05:50)
[2017-07-04] MEDS ORDERED: NORC10TA21 PO (05:50)
[2017-07-04] MEDS ORDERED: ONDANSETRON 4MG/2ML VIAL (J2405) IV PRN (06:00)
[2017-07-04] MEDS ORDERED: ACETAMINOPHEN TAB 650MG DOSE (2X325MG) PO PRN (06:00)
[2017-07-04] MEDS ORDERED: NICOTINE POLACRILEX 2 MG GUM PO PRN (06:00)
[2017-07-04] MEDS ORDERED: OXAZEPAM 10 MG CAP PO PRN (06:00)
[2017-07-04] MEDS ORDERED: ALBUTEROL 90 MCG/ACT 8GM HFA INHALER INH PRN (06:00)
--- NOTE | 2017-07-04 06:24 | HPEPDOC ---
General Date of Admission 07/04/17 Primary Care Physician: SENIA LUQUE MD Other Providers primary Senia Kline [facility] Attending Physician: ELEONORA MALIK MD Chief Complaint The patient is a 47-year-old male admitted with a reason for visit of Abd Pain. Source: Patient Exam Limitations: No limitations History of Present Illness 47 M h/o HTN, HLD, COPD, CAD stent 10/2014, cath 1 month ago neg, h/o right inguinal hernia repair and abd hernia repair, heavy smoker and heavy ETOH use. present with 1-2 months of progressive worsening LLQ abd pain 8/10 cramping. reported likely due to left inguinal hernia. reducible still. rep[orted drinking 8 beers yesterday. repored 1x billious vomiting yesterday. reported 3 episodes of diarrheas of 1 week with last BM normal consistency yesterday am. Denied chest pain, fever, chill, sob. denied epigastric pain. reported abd pain improved with beer. Home Medications Scheduled Citalopram Hydrobromide (Citalopram Hydrobromide) 20 Mg Tab, 20 MG PO DAILY, ( Reported) Clopidogrel Bisulfate (Clopidogrel) 75 Mg Tab, 75 MG PO DAILY, (Reported) Lisinopril (Lisinopril) 40 Mg Tab, 40 MG PO DAILY, (Reported) Morphine Sulfate (Morphine Sulfate ER) 15 Mg Tab, 15 MG PO BID, (Reported) Pantoprazole Sodium (Pantoprazole Sodium) 40 Mg Tab, 40 MG PO BID, (Reported) Pravastatin Sodium (Pravastatin Sodium) 80 Mg Tab, 80 MG PO DAILY, (Reported) Scheduled PRN Acetaminophen/Hydrocodone ([place] 10-325 mg) 1 Tab Tab, 1 TAB PO Q8H PRN for PAIN , (Reported) Albuterol Sulfate (Ventolin Hfa) Aer, 2 PUFFS INH Q4H PRN for SHORTNESS OF BREATH, (Reported) Allergies Coded Allergies: Bee Venom (Verified Allergy, Severe, ANAPHYLACTIC SHOCK, 04/21/17) Aspirin (Verified Allergy, Intermediate, HIVES AND NAUSEA, 04/21/17) NSAIDs (Verified Allergy, Intermediate, HIVES, 11/24/14) Penicillins (Verified Allergy, Intermediate, HIVES AND NAUSEA, 04/21/17) Hydrochlorothiazide (Verified Allergy, Unknown, 04/21/17) rash Past Medical History Medical History HTN, HLD, COPD, CAD stent 10/2014, cath last month, heavy smoker and ETOH use, Surgical History left foot fracture, Stent 10/2014, cath last month. umbilical hernia repair, right inguinal hernia repair Family History Significant Family History: No pertinent family hx Social History * Smoker: greater than 1 pack/day (2PPD for 35 years) Alcohol: heavy (6-8 beer per day) Drugs: denies Recent Travel/Sick Contacts: Denies: Recent travel, Recent sick contacts denied family history of pancreatitis. Review of Symptoms Constitutional: Denies: Chills, Fever Eyes: Denies: Pain, Vision change ENT: Denies: Head Aches Skin: Denies: Rash, Lesions Pulmonary: Denies: Dyspnea, Cough Cardiovascular: Denies: Chest Pain, Palpitations, Orthopnea Gastrointestinal: Reports: Nausea, Vomiting, Abdominal Pain, Diarrhea, Hematochezia, Denies: Constipation Genitourinary: Denies: Dysuria, Frequency, Incontinence, Hematuria, Retention Hematologic: Denies: Bruising, Bleeding Excessively, [place] Endocrine: Denies: Polydipsia, Polyphagia, Polyuria Musculoskeletal: Reports: Back Pain, Denies: Neck Pain Neurological: Denies: Weakness, Numbness, Incoordination, Change in speech Physical Examination General Exam: Positive: Alert, No Acute Distress Eye Exam: Positive: PERRLA, Conjunctiva & lids normal, EOMI, Sclera icteric ENT Exam: Positive: Atraumatic, Mucous membr. moist/pink, Pharynx Normal Neck Exam: Positive: Supple, JVD Chest Exam: Positive: Clear to auscultation, Normal air movement Heart Exam: Positive: Rate Normal, Regular Rhythm, Normal S1, Normal S2, Negative: Gallops, Murmurs, Rubs Abdomen Exam: Positive: Normal bowel sounds, Soft, Tenderness (LLQ ), Hernia ( left inguinal hernia, reducible) Extremity Exam: Negative: Clubbing, Cyanosis, Edema, Normal pulses Skin Exam: Positive: Nl turgor and temperature Neuro Exam: Positive: Normal Gait, Normal Speech Vital Signs Vital Signs Date Time Temp Pulse Resp B/P (MAP) Pulse Ox O2 Delivery O2 Flow Rate FiO2 07/04/17 04:57 16 98 07/04/17 03:57 90 07/04/17 03:30 147/86 (106) 07/04/17 00:42 Nasal Cannula 07/04/17 00:04 98.9 Laboratory Data Labs 24H Laboratory Tests 2 07/04/17 01:08: White Blood Count 9.4, Red Blood Count 4.81, Hemoglobin 15.8, Hematocrit 44.4, Mean Corpuscular Volume 92.3, Mean Corpuscular Hemoglobin 32.8, Mean Corpuscular Hemoglobin Concent 35.6, Red Cell Distribution Width 13.0, Platelet Count 189, Neutrophils (%) (Auto) 58.8, Lymphocytes (%) (Auto) 27.8, Monocytes ( %) (Auto) 7.6H, Eosinophils (%) (Auto) 5.0H, Basophils (%) (Auto) 0.4, Neutrophils # (Auto) 5.5, Lymphocytes # (Auto) 2.6, Monocytes # (Auto) 0.7, Eosinophils # (Auto) 0.5, Basophils # (Auto) 0.0, Immature Granulocyte # (Auto) 0.0, Nucleated Red Blood Cells % (auto) 0.0, Anion Gap 8, Glomerular Filtration Rate > 60.0, Calcium Level 8.4L, Aspartate Amino Transf (AST/SGOT) 57H, Alanine Aminotransferase (ALT/SGPT) 64, Alkaline Phosphatase 65, Total Bilirubin 0.3, Direct Bilirubin 0.1, Total Protein 7.3, Albumin 3.8, Albumin/Globulin Ratio 1.09, Amylase Level 255H, Lipase 5995H 07/04/17 01:27: Urine Appearance CLEAR, Urine Color STRAW, Urine pH 6.0, Urine Specific [place] 1.001L, Urine Protein NEGATIVE, Urine Glucose (UA) NEGATIVE, Urine Ketones NEGATIVE, Urine Urobilinogen 0.2, Urine Bilirubin NEGATIVE, Urine Leukocyte Esterase NEGATIVE, Urine Blood NEGATIVE, Urine Nitrite NEGATIVE, Urine WBC (Auto ) 0, Urine RBC (Auto) 0, Urine Hyaline Casts (Auto) 0, Urine Bacteria (Auto) NEGATIVE, Urine Squamous Epithelial Cells 0, Urine Sperm (Auto) CBC/BMP Laboratory Tests 07/04/17 01:08 Red Blood Count 4.81, Mean Corpuscular Volume 92.3, Mean Corpuscular Hemoglobin 32.8, Mean Corpuscular Hemoglobin Concent 35.6, Red Cell Distribution Width 13.0 , Neutrophils (%) (Auto) 58.8, Lymphocytes (%) (Auto) 27.8, Monocytes (%) (Auto ) 7.6 H, Eosinophils (%) (Auto) 5.0 H, Basophils (%) (Auto) 0.4, Neutrophils # ( Auto) 5.5, Lymphocytes # (Auto) 2.6, Monocytes # (Auto) 0.7, Eosinophils # (Auto ) 0.5, Basophils # (Auto) 0.0 Microbiology Microbiology 07/04/17 Urine Culture, Received Pending Assessment/Plan 47 M h/o HTN, HLD, COPD, CAD sten 10/2014, cath last month normal, chronic back pain, and heavy smoker and ETOH use. presented with LLQ abd pain and nausea vomiting Problems (1) Pancreatitis Status: Acute Problem Text: elevated lipase 2/2 to sigmoiditis vs pancreat[address] CT abd appreciated NPO, IVF US abd LFT WNL possibly related to ETOH pain meds f/u triglyceride (2) Inguinal hernia Status: Chronic Response to Treatment: Worse Problem Text: ct apreciated NPO IVF pain med consult surgery (3) Sigmoiditis Status: Acute Problem Text: NPO, IVF pain meds, advance diet as tolerated hold antibiotics given no leucocytosis or diarrhea (4) HTN (hypertension) Status: Chronic Problem Text: c/w ACEi, would hold if planing surgery (5) HLD (hyperlipidemia) Status: Chronic Problem Text: c/w statin (6) CAD (coronary artery disease) Status: Chronic Problem Text: recent cath neg as per patient c/w acei, plavix, statin no chest pain (7) COPD (chronic obstructive pulmonary disease) Status: Chronic Problem Text: no wheeze, c/w home meds (8) Smoking Status: Chronic Problem Text: 2PPD Counseling provider, time spend 5 minutes nicotine patch 21mg daily plus nicotine gum as needed (9) ETOH abuse Status: Chronic Problem Text: no h/o withdrawal withdraw precaution folic, MVI, thiamine serax PRN for withdrawal, counseling provided (10) Chronic back pain Status: Chronic Problem Text: hold oral meds given patient currently on Dilaudid for abd pain Plan / VTE VTE Prophylaxis Ordered?: Yes (heparin SQ) Plan Disposition surgery consult and clinical improvement SHARRI CARTWRIGHT MD Jul 04, 2017 06:24
[2017-07-04] MEDS: HYDROmorphone HCL 1 MG/ML SYRINGE (J1170) IV PRN ×6 (06:27→22:49)
[2017-07-04] MEDS: KCL 20MEQ in NS 1000ML 1,000 ML IV SCH ×4 (06:31→20:58)
[2017-07-04 08:26] LABS: ANION GAP 6 MEQ/L (8-16); BLOOD UREA NITROGEN 4 MG/DL (7-18); CALCIUM LEVEL 8.1 MG/DL (8.5-10.1); CARBON DIOXIDE LEVEL 27 MEQ/L (21-32); CHLORIDE LEVEL 103 MEQ/L (98-107); CHOLESTEROL LEVEL 130 MG/DL (<200); CREATININE FOR GFR 0.63 MG/DL (0.70-1.30); GLOMERULAR FILTRATION RATE > 60.0 (>60); GLUCOSE, FASTING 83 MG/DL (70-105); POTASSIUM SERUM 4.1 MEQ/L (3.5-5.1); SODIUM LEVEL 136 MEQ/L (136-145); TRIGLYCERIDES LEVEL 95 MG/DL (<150)
[2017-07-04 08:30] VITALS: BP 134/78
--- NOTE | 2017-07-04 08:34 | REP ---
Abdominal right upper quadrant ultrasound: Comparison is the CT of the abdomen pelvis performed earlier this same date. There is no cholelithiasis, gallbladder wall thickening or pericholecystic fluid. There is no intrahepatic or extrahepatic biliary duct dilatation. The common duct measures 4.2 mm in diameter. The hepatic parenchyma is hyperechoic compatible with hepato steatosis. This is unchanged from the comparison CT. No focal hepatic lesions are identified. The pancreas is obscured by bowel gas. On the comparison CT. The pancreas are unremarkable appearance. There is no right renal hydronephrosis, calculus, mass or cyst. The right kidney is normal size measuring 10.7 cm craniocaudad length. There is no free fluid in the abdominal right upper quadrant. Impression: Hepato steatosis. The pancreas is obscured by bowel gas. No cholelithiasis. No evidence of acute cholecystitis. No free fluid. Otherwise, negative abdominal right upper quadrant ultrasound. Signed by Reji Morrow MD 07/04/2017 08:25 A
[2017-07-04] MEDS: SENOKOT S TAB PO SCH ×2 (09:13→20:58)
[2017-07-04] MEDS: CitaloPRAM (CeleXA) 20 MG TAB PO SCH (09:14)
[2017-07-04] MEDS: CLOPIDOGREL 75 MG TAB PO SCH (09:14)
[2017-07-04] MEDS: PANTOPRAZOLE 40MG INJ (PROTONIX) (C9113) IV SCH (09:14)
[2017-07-04] MEDS: LISINOPRIL 40 MG TAB PO SCH (09:14)
[2017-07-04] MEDS: THIAMINE 100 MG TAB PO SCH (09:14)
[2017-07-04] MEDS: FOLIC ACID 1 MG TAB PO SCH (09:14)
[2017-07-04] MEDS: MULTIVITAMINS/MINERALS THERAP 1 TAB PO SCH (09:14)
[2017-07-04] MEDS: HEPARIN SOD (PORCINE) 5000 UNITS/ML VIAL SC SCH ×3 (09:15→21:00)
--- NOTE | 2017-07-04 11:03 | IPNPDOC ---
Date Seen The patient was seen on 07/04/17. Progress Note SUBJECTIVE: 47 M with a history of HTN, HLD, COPD, CAD stent 10/2014, cath 1 month ago neg, history of right inguinal hernia repair and abd hernia repair. Pt is a heavy smoker ( 2 + packs a day) and heavy ETOH use( drinks 6 to 8 beers a day). He presented to the ED with a 1-2 months of progressive worsening LLQ abd pain 8/10 cramping. reported likely due to left reducible inguinal hernia. . repored 1x billious vomiting yesterday. reported 3 episodes of diarrheas of 1 week with last BM normal consistency. Denied chest pain, fever, chill, sob. denied epigastric pain. reported abd pain improved with beer. Surgery was consulted because of the inguinal hernia OBJECTIVE PHYSICAL EXAMINATION: VITAL SIGNS: Please see below. GENERAL: Alert gentleman resting comfortably in bed CARDIOVASCULAR: S1 and S2 present, no murmurs no rubs or gallops RESPIRATORY: Lungs are clear to auscultate. ABDOMINAL: Tender to palpate in the left lower quadrant, GROIN: Left testicular swelling, reducible left inguinal hernia EXTREMITIES: No deformities noted LABORATORY DATA: Please see below. IMAGING: CT abdomen: Hepatomegaly with fatty liver infiltration. Unchanged sliding hiatal hernia. Suspected mild acute inflammatory changes of the proximal sigmoid colon. Uncomplicated hernias of the anterior abdominal wall. Prostatomegaly.Thickened bladder. Underdistention, spasm, chronic bladder outflow obstruction changes versus cystitis. Abdominal right upper quadrant US: Hepato steatosis. The pancreas is obscured by bowel gas. No cholelithiasis. No evidence of acute cholecystitis. No free fluid. Otherwise, negative abdominal right upper quadrant ultrasound. MICROBIOLOGY: Please see below. ASSESSMENT AND PLAN: A 47ear-old male admitted for left lower quadrant abdominal pain. Patient has a history of alcohol and tobacco heavy usage. 1.Diverticulitis: CT showed mild diverticulitis, patient will be nothing by mouth, I recommended antibiotics (cipro and flagyl). Follow-up as an outpatient for diverticulitis in 6-8 weeks for colonoscopy 2. Pancreatitis: This is most likely from patient's alcohol heavy usage. My recommendations are bowel rest until enzymes are within normal range. 3. Abdominal and inguinal hernia: Patient hernia are reducible. At this moment there are only causing mild discomfort for the patient. I recommended out patient follow-up hernia 4. Pain: Pain can be controlled with pain medication at the discretion of the tours captain VS, I&O, [facility] Vital Signs/I&O Vital Signs Date Time Temp Pulse Resp B/P (MAP) Pulse Ox O2 Delivery O2 Flow Rate FiO2 07/04/17 09:37 18 07/04/17 08:08 97.5 88 127/84 (98) 92 Room Air Laboratory Data 24H LABS Laboratory Tests 2 07/04/17 01:08: White Blood Count 9.4, Red Blood Count 4.81, Hemoglobin 15.8, Hematocrit 44.4, Mean Corpuscular Volume 92.3, Mean Corpuscular Hemoglobin 32.8, Mean Corpuscular Hemoglobin Concent 35.6, Red Cell Distribution Width 13.0, Platelet Count 189, Neutrophils (%) (Auto) 58.8, Lymphocytes (%) (Auto) 27.8, Monocytes ( %) (Auto) 7.6H, Eosinophils (%) (Auto) 5.0H, Basophils (%) (Auto) 0.4, Neutrophils # (Auto) 5.5, Lymphocytes # (Auto) 2.6, Monocytes # (Auto) 0.7, Eosinophils # (Auto) 0.5, Basophils # (Auto) 0.0, Immature Granulocyte # (Auto) 0.0, Nucleated Red Blood Cells % (auto) 0.0, Anion Gap 8, Glomerular Filtration Rate > 60.0, Calcium Level 8.4L, Aspartate Amino Transf (AST/SGOT) 57H, Alanine Aminotransferase (ALT/SGPT) 64, Alkaline Phosphatase 65, Total Bilirubin 0.3, Direct Bilirubin 0.1, Total Protein 7.3, Albumin 3.8, Albumin/Globulin Ratio 1.09, Amylase Level 255H, Lipase 5995H 07/04/17 01:27: Urine Appearance CLEAR, Urine Color STRAW, Urine pH 6.0, Urine Specific [place] 1.001L, Urine Protein NEGATIVE, Urine Glucose (UA) NEGATIVE, Urine Ketones NEGATIVE, Urine Urobilinogen 0.2, Urine Bilirubin NEGATIVE, Urine Leukocyte Esterase NEGATIVE, Urine Blood NEGATIVE, Urine Nitrite NEGATIVE, Urine WBC (Auto ) 0, Urine RBC (Auto) 0, Urine Hyaline Casts (Auto) 0, Urine Bacteria (Auto) NEGATIVE, Urine Squamous Epithelial Cells 0, Urine Sperm (Auto) 07/04/17 07:50: Anion Gap 6L, Glomerular Filtration Rate > 60.0, Calcium Level 8.1L, Triglycerides Level 95, LDL Cholesterol 36.0, Total Cholesterol 130, Non-HDL Cholesterol (LDL + VLDL) 55, Total HDL Cholesterol 75, Cholesterol/HDL Ratio 1.733 CBC/BMP Laboratory Tests 07/04/17 01:08 Red Blood Count 4.81, Mean Corpuscular Volume 92.3, Mean Corpuscular Hemoglobin 32.8, Mean Corpuscular Hemoglobin Concent 35.6, Red Cell Distribution Width 13.0 , Neutrophils (%) (Auto) 58.8, Lymphocytes (%) (Auto) 27.8, Monocytes (%) (Auto ) 7.6 H, Eosinophils (%) (Auto) 5.0 H, Basophils (%) (Auto) 0.4, Neutrophils # ( Auto) 5.5, Lymphocytes # (Auto) 2.6, Monocytes # (Auto) 0.7, Eosinophils # (Auto ) 0.5, Basophils # (Auto) 0.0 07/04/17 07:50 Microbiology Microbiology 07/04/17 Urine Culture, Received Pending GME ATTESTATION GME ATTESTATION My preceptor for this patient encounter was physically present in the building during the encounter and was fully available. As needed, all aspects of the patient interview, examination, medical decision making process, and medical care plan development were reviewed and approved by the preceptor. Preceptor is aware and concurs with the plan as stated in the body of this note and will attest to such by his/her cosignature. DAI LORENZO DO Jul 04, 2017 11:03
[2017-07-04 14:00] VITALS: BP 139/78
[2017-07-04] MEDS: metroNIDAZOLE 500 MG in APPROPRIATE DILUENT 1 EA IV SCH ×2 (14:53→22:49)
[2017-07-04] MEDS: CIPROFLOXACIN 400 MG in APPROPRIATE DILUENT 1 EA IV SCH (16:14)
[2017-07-04 20:00] VITALS: BP 142/96
[2017-07-04] MEDS: PRAVASTATIN 20 MG TAB PO SCH (20:57)
[2017-07-04] MEDS: NICOTINE 21MG/24HR 1 EA TRANSDERMAL TD SCH (20:57)
--- NOTE | 2017-07-04 22:04 | ECGEPIP ---
Stationary ECG Study [facility] Test Date: 2017-07-04 Pat Name: KRYS TIRADO Department: Room: - Gender: M Csw: darío : 1970 Requested By: SHARRI CARTWRIGHT Order Number: [id number] Reading MD: Po English Measurements Intervals [place] Rate: 86 P: 67 MN: 154 QRS: -19 QRSD: 108 T: 20 QT: 356 QTc: 428 Interpretive Statements SINUS RHYTHM INCOMPLETE RIGHT BUNDLE BRANCH BLOCK COMPARED TO THE LAST THREE TRACINGS, NO SIGNIFICANT CHANGES Electronically Signed On 07-04-2017 22:04:13 EDT by Po English
[2017-07-05] MEDS: KCL 20MEQ in NS 1000ML 1,000 ML IV SCH (01:52)
[2017-07-05] MEDS: HYDROmorphone HCL 1 MG/ML SYRINGE (J1170) IV PRN ×3 (01:53→11:23)
[2017-07-05 04:00] VITALS: BP 131/86
[2017-07-05] MEDS: CIPROFLOXACIN 400 MG in APPROPRIATE DILUENT 1 EA IV SCH ×2 (04:06→15:46)
[2017-07-05] MEDS: HEPARIN SOD (PORCINE) 5000 UNITS/ML VIAL SC SCH ×3 (05:54→21:21)
[2017-07-05 06:49] LABS: MEAN CORPUSCULAR HEMOGLOBIN 32.3 pg (27.0-33.0); MEAN CORPUSCULAR HGB CONC 33.6 g/dl (32.0-36.5); MEAN CORPUSCULAR VOLUME 96.2 fl (80.0-96.0); RED CELL DISTRIBUTION WIDTH 13.1 % (11.5-14.5); WHITE BLOOD COUNT 4.8 10^3/uL (4.0-10.0)
[2017-07-05] MEDS: metroNIDAZOLE 500 MG in APPROPRIATE DILUENT 1 EA IV SCH ×3 (07:00→22:32)
[2017-07-05 07:09] LABS: ALBUMIN 2.9 GM/DL (3.2-5.2); ALBUMIN/GLOBULIN RATIO 0.97 (1.00-1.93); ALKALINE PHOSPHATASE 60 U/L (45-117); ALT/SGPT 50 U/L (12-78); ANION GAP 7 MEQ/L (8-16); AST/SGOT 40 U/L (15-37); BILIRUBIN,TOTAL 0.6 MG/DL (0.2-1.0); BLOOD UREA NITROGEN 8 MG/DL (7-18); CARBON DIOXIDE LEVEL 24 MEQ/L (21-32); CHLORIDE LEVEL 106 MEQ/L (98-107); GLOMERULAR FILTRATION RATE > 60.0 (>60); GLUCOSE, FASTING 77 MG/DL (70-105); MAGNESIUM LEVEL 1.9 MG/DL (1.8-2.4); POTASSIUM SERUM 4.4 MEQ/L (3.5-5.1); SODIUM LEVEL 137 MEQ/L (136-145); TOTAL PROTEIN 5.9 GM/DL (6.4-8.2)
[2017-07-05] MEDS: MULTIVITAMINS/MINERALS THERAP 1 TAB PO SCH (08:47)
[2017-07-05] MEDS: FOLIC ACID 1 MG TAB PO SCH (08:47)
[2017-07-05] MEDS: THIAMINE 100 MG TAB PO SCH (08:47)
[2017-07-05] MEDS: LISINOPRIL 40 MG TAB PO SCH (08:47)
[2017-07-05] MEDS: PANTOPRAZOLE 40MG INJ (PROTONIX) (C9113) IV SCH (08:47)
[2017-07-05] MEDS: SENOKOT S TAB PO SCH ×2 (08:48→21:22)
[2017-07-05] MEDS: CLOPIDOGREL 75 MG TAB PO SCH (08:48)
[2017-07-05] MEDS: CitaloPRAM (CeleXA) 20 MG TAB PO SCH (08:48)
--- NOTE | 2017-07-05 10:57 | IPNPDOC ---
Date Seen The patient was seen on 07/05/17. Progress Note SUBJECTIVE: 47 M with a history of HTN, HLD, COPD, CAD stent 10/2014, cath 1 month ago neg, history of right inguinal hernia repair and abd hernia repair. Pt is a heavy smoker ( 2 + packs a day) and heavy ETOH use( drinks 6 to 8 beers a day). He presented to the ED with a 1-2 months of progressive worsening LLQ abd pain 8/10 cramping. reported likely due to left reducible inguinal hernia. . repored 1x billious vomiting yesterday. reported 3 episodes of diarrheas of 1 week with last BM normal consistency. Denied chest pain, fever, chill, sob. denied epigastric pain. reported abd pain improved with beer. Surgery was consulted because of the inguinal hernia. This morning reports that he slept well overnight. Patient declined his pain medication overnight, stating that he was already asleep. He said that because he skipped his pain medication overnight his pain was slightly worse in the morning. Patient is still complaining of abdominal and left inguinal pain. OBJECTIVE PHYSICAL EXAMINATION: VITAL SIGNS: Please see below. GENERAL: Alert gentleman resting comfortably in bed CARDIOVASCULAR: S1 and S2 present, no murmurs no rubs or gallops RESPIRATORY: Lungs are clear to auscultate. ABDOMINAL: Tender to palpate in the left lower quadrant, bowel sounds present in all 4 quadrants GROIN: Left testicular swelling, reducible left inguinal hernia EXTREMITIES: No deformities noted LABORATORY DATA: Please see below. IMAGING: CT abdomen: Hepatomegaly with fatty liver infiltration. Unchanged sliding hiatal hernia. Suspected mild acute inflammatory changes of the proximal sigmoid colon. Uncomplicated hernias of the anterior abdominal wall. Prostatomegaly.Thickened bladder. Underdistention, spasm, chronic bladder outflow obstruction changes versus cystitis. Abdominal right upper quadrant US: Hepato steatosis. The pancreas is obscured by bowel gas. No cholelithiasis. No evidence of acute cholecystitis. No free fluid. Otherwise, negative abdominal right upper quadrant ultrasound. MICROBIOLOGY: Please see below. ASSESSMENT AND PLAN: A 47ear-old male admitted for left lower quadrant abdominal pain. Patient has a history of alcohol and tobacco heavy usage. 1.Diverticulitis: Patient has been started on Cipro and metronidazole for his diverticulitis. Patient is tolerating antibiotics well. At the completion of antibiotics and after discharge. Patient has agreed to follow-up the diverticulitis as an outpatient with a colonoscopy in 6-8 weeks . 2. Pancreatitis: This is most likely from patient's alcohol heavy usage. Patient 's lipase has decreased to 413 from its original 5995. I believe it is reasonable to start patient on clear liquid diet and advance diet slowly, as tolerated. 3. Abdominal and inguinal hernia: Patient hernia are reducible. At this moment there are only causing mild discomfort for the patient. I recommended out patient follow-up hernia 4. Pain: Pain can be controlled with pain medication at the discretion of the software requirements engineer. VS, I&O, 24H, Fishbone Vital Signs/I&O Vital Signs Date Time Temp Pulse Resp B/P (MAP) Pulse Ox O2 Delivery O2 Flow Rate FiO2 07/05/17 07:45 18 07/05/17 04:00 97.3 79 131/86 (101) 95 Room Air I&O- Last 24 Hours up to 6 AM 07/06/17 06:00 Intake Total 360 ml Balance 360 ml Laboratory Data 24H LABS Laboratory Tests 2 07/05/17 06:32: Anion Gap 7L, Glomerular Filtration Rate > 60.0, Blood Urea Nitrogen 8#, Creatinine 0.60L, Sodium Level 137, Potassium Level 4.4, Chloride Level 106, Carbon Dioxide Level 24, Calcium Level 8.0L, Aspartate Amino Transf (AST/SGOT) 40H, Alanine Aminotransferase (ALT/SGPT) 50, Alkaline Phosphatase 60, Total Bilirubin 0.6#, Total Protein 5.9L, Albumin 2.9#L, Magnesium Level 1.9, Albumin/ Globulin Ratio 0.97L, Lipase 413H CBC/BMP Laboratory Tests 07/05/17 06:32 Red Blood Count 4.46, Mean Corpuscular Volume 96.2 H, Mean Corpuscular Hemoglobin 32.3, Mean Corpuscular Hemoglobin Concent 33.6, Red Cell Distribution Width 13.1, Calcium Level 8.0 L, Aspartate Amino Transf (AST/SGOT) 40 H, Alanine Aminotransferase (ALT/SGPT) 50, Alkaline Phosphatase 60, Total Bilirubin 0.6 #, Total Protein 5.9 L, Albumin 2.9 #L Microbiology Microbiology 07/04/17 Urine Culture - Final, Complete GME ATTESTATION GME ATTESTATION My preceptor for this patient encounter was physically present in the building during the encounter and was fully available. As needed, all aspects of the patient interview, examination, medical decision making process, and medical care plan development were reviewed and approved by the preceptor. Preceptor is aware and concurs with the plan as stated in the body of this note and will attest to such by his/her cosignature. DAI LORENZO DO Jul 05, 2017 10:57
[2017-07-05 13:44] VITALS: BP 155/87
[2017-07-05] MEDS ORDERED: PERCOCET 5MG/325MG TAB PO PRN (14:45)
--- NOTE | 2017-07-05 14:59 | IPNPDOC ---
Text Note Date of Service The patient was seen on 07/05/17. NOTE Subjective: Patient is a 47 year old male with a PMHx of HTN, DLP, CAD s/p stent ( 10/2014), COPD, Alcohol abuse and Active Smoker who presented to the ER with complaints of LLQ abdominal pain. He is known to have a L inguinal hernia. CT scan completed in the ER revealed that he had sigmoid thickening and an elevation in his lipase. Patient was admitted to hospitalist service for pancreatitis; he was kept NPO, started on aggressive IV fluid hydration and pain control. Surgery has evaluated that patient on 07/04 and suggestive acute diverticulitis. Patient has been started on Ciprofloxacin and Flagyl. Patient was seen and examined at the bedside. Currently he notes that he has been tolerating the abdominal pain. He denies any nausea or vomiting, but he notes some loose stools. Objective: Vitals (See below) General: Lying in bed, no acute distress, comfortable, AAOx3 HEENT: NC, AT CVS: RRR, +S1S2 Lungs: Fair air entry b/l, -w/r/r Abdomen: Soft, ND, L inguinal pain Extremities: - Edema, - Calf tenderness Assessment and plan: Abdominal pain, LLQ / L inguinal area - likely 2/2 acute diverticulitis of sigmoid colon, possibly 2/2 exacerbation of inguinal hernia, less likely acute pancreatitis - Presented with nausea, vomiting and LLQ abdominal pain; symptoms improving - Physical with localized pain at LLQ / L Inguinal area - Not typical presentation of acute pancreatitis - No leukocytosis, No lactic acidosis, Afebrile - Elevation in Lipase; however has trended down significantly - FLP within normal limits - CT abdomen / pelvis 07/04: hepatomegaly, unchanged hiatal hernia, mild acute inflammatory changes of proximal sigmoid, uncomplicated hernia, thickened bladder - US abdomen 07/04: hepato-steatosis, no cholelithiasis, no acute cholecystitis, no free fluid - s/p IV fluid hydration - c/w Ciprofloxacin and Flagyl (Day #2) - Diet fully advanced - Will begin to taper down on pain medications; will discontinue Dilaudid, Will start Percocet Left inguinal hernia - no evidence of strangulation - c/w pain control; will begin to taper HTN - BP moderately elevated - c/w Lisinopril DLP - c/w Pravastatin COPD - no evidence of exacerbation - c/w Albuterol, Alcohol use history - c/w MVI, Thiamine and Folate Nicotine dependence - c/w Nicotine patch Depression - c/w Citalopram Chronic back pain - c/w pain control; will adjust current medications back down to home regimen GERD - c/w Protonix IV DVT prophylaxis - c/w Heparin VS,Fishbone, I+O VS, Fishbone, I+O Laboratory Tests 07/05/17 06:32 Red Blood Count 4.46, Mean Corpuscular Volume 96.2 H, Mean Corpuscular Hemoglobin 32.3, Mean Corpuscular Hemoglobin Concent 33.6, Red Cell Distribution Width 13.1, Calcium Level 8.0 L, Aspartate Amino Transf (AST/SGOT) 40 H, Alanine Aminotransferase (ALT/SGPT) 50, Alkaline Phosphatase 60, Total Bilirubin 0.6 #, Total Protein 5.9 L, Albumin 2.9 #L Vital Signs Date Time Temp Pulse Resp B/P (MAP) Pulse Ox O2 Delivery O2 Flow Rate FiO2 07/05/17 13:44 98.4 77 18 155/87 (109) 96 Room Air I&O- Last 24 Hours up to 6 AM 07/06/17 06:00 Intake Total 1240 ml Output Total 250 ml Balance 990 ml ELEONORA MALIK MD Jul 05, 2017 14:59
[2017-07-05 15:10] VITALS: BP 152/93
[2017-07-05] MEDS: MORPHINE 4 MG/ML 1ML SYRINGE IV PRN ×3 (16:15→22:33)
[2017-07-05] MEDS ORDERED: MORPHINE 30 MG SA TAB PO SCH (21:00)
[2017-07-05] MEDS: NICOTINE 21MG/24HR 1 EA TRANSDERMAL TD SCH (21:22)
[2017-07-05] MEDS: PRAVASTATIN 20 MG TAB PO SCH (21:22)
[2017-07-05 22:00] VITALS: BP 142/81
[2017-07-06] MEDS: MORPHINE 4 MG/ML 1ML SYRINGE IV PRN ×4 (01:38→14:46)
[2017-07-06] MEDS: CIPROFLOXACIN 400 MG in APPROPRIATE DILUENT 1 EA IV SCH (04:40)
[2017-07-06 06:00] VITALS: BP 158/100
[2017-07-06] MEDS: metroNIDAZOLE 500 MG in APPROPRIATE DILUENT 1 EA IV SCH (06:22)
[2017-07-06] MEDS: HEPARIN SOD (PORCINE) 5000 UNITS/ML VIAL SC SCH ×3 (06:22→21:06)
[2017-07-06 07:12] LABS: MEAN CORPUSCULAR HEMOGLOBIN 32.4 pg (27.0-33.0); MEAN CORPUSCULAR HGB CONC 33.9 g/dl (32.0-36.5); MEAN CORPUSCULAR VOLUME 95.6 fl (80.0-96.0); RED CELL DISTRIBUTION WIDTH 12.8 % (11.5-14.5); WHITE BLOOD COUNT 5.4 10^3/uL (4.0-10.0)
[2017-07-06 07:53] LABS: ALBUMIN 3.3 GM/DL (3.2-5.2); ALBUMIN/GLOBULIN RATIO 1.06 (1.00-1.93); ALKALINE PHOSPHATASE 69 U/L (45-117); ALT/SGPT 54 U/L (12-78); ANION GAP 6 MEQ/L (8-16); AST/SGOT 43 U/L (15-37); BILIRUBIN,TOTAL 0.3 MG/DL (0.2-1.0); BLOOD UREA NITROGEN 6 MG/DL (7-18); CALCIUM LEVEL 8.7 MG/DL (8.5-10.1); CARBON DIOXIDE LEVEL 28 MEQ/L (21-32); CHLORIDE LEVEL 102 MEQ/L (98-107); CREATININE FOR GFR 0.76 MG/DL (0.70-1.30); GLOMERULAR FILTRATION RATE > 60.0 (>60); GLUCOSE, FASTING 128 MG/DL (70-105); MAGNESIUM LEVEL 1.9 MG/DL (1.8-2.4); POTASSIUM SERUM 3.8 MEQ/L (3.5-5.1); SODIUM LEVEL 136 MEQ/L (136-145); TOTAL PROTEIN 6.4 GM/DL (6.4-8.2)
[2017-07-06] MEDS: PANTOPRAZOLE 40MG INJ (PROTONIX) (C9113) IV SCH (08:20)
[2017-07-06] MEDS: THIAMINE 100 MG TAB PO SCH (08:31)
[2017-07-06] MEDS: SENOKOT S TAB PO SCH ×2 (08:31→21:06)
[2017-07-06] MEDS: FOLIC ACID 1 MG TAB PO SCH (08:31)
[2017-07-06] MEDS: CitaloPRAM (CeleXA) 20 MG TAB PO SCH (08:31)
[2017-07-06] MEDS: CLOPIDOGREL 75 MG TAB PO SCH (08:31)
[2017-07-06] MEDS: MULTIVITAMINS/MINERALS THERAP 1 TAB PO SCH (08:32)
[2017-07-06] MEDS: LISINOPRIL 40 MG TAB PO SCH (08:32)
[2017-07-06] MEDS: CARVedilol 3.125 MG TAB PO SCH ×2 (09:00→21:06)
[2017-07-06] MEDS ORDERED: HYDROmorphone HCL 1 MG/ML SYRINGE (J1170) IV ONE (10:15)
--- NOTE | 2017-07-06 12:20 | IPNPDOC ---
Text Note Date of Service The patient was seen on 07/06/17. NOTE Subjective: Patient is a 47 year old male with a PMHx of HTN, DLP, CAD s/p stent ( 10/2014), COPD, Alcohol abuse and Active Smoker who presented to the ER with complaints of LLQ abdominal pain. He is known to have a L inguinal hernia. CT scan completed in the ER revealed that he had sigmoid thickening and an elevation in his lipase. Patient was admitted to hospitalist service for pancreatitis; he was kept NPO, started on aggressive IV fluid hydration and pain control. Surgery has evaluated that patient on 07/04 and suggestive acute diverticulitis. Patient has been started on Ciprofloxacin and Flagyl. Patient was seen and examined at the bedside. He notes that his pain is intolerable once I walked into the room. He described that he has a pain management doctor who follows him outside the hospital and prescribes his pain medications. He notes that he was advised to follow with someone else, but was reluctant to do so because he didn't want his pain medications to be reduced. He has been tolerating a full diet, denies any nausea, vomiting, or diarrhea. His primary focus at this time is pain control. Objective: Vitals (See below) General: Lying in bed, no acute distress, comfortable, AAOx3 HEENT: NC, AT CVS: RRR, +S1S2 Lungs: Fair air entry b/l, -w/r/r Abdomen: Soft, ND, no significant L inguinal tenderness Extremities: - Edema, - Calf tenderness Assessment and plan: Abdominal pain, LLQ / L inguinal area - likely 2/2 acute diverticulitis of sigmoid colon, possibly 2/2 exacerbation of inguinal hernia, less likely acute pancreatitis - Presented with nausea and vomiting that has resolved completely; His LLQ abdominal pain is reported to still persist - Physical with mild tenderness L Inguinal area - Not typical presentation of acute pancreatitis, No leukocytosis, No lactic acidosis, Remains afebrile - Lipase, initially elevated, but has trended down - FLP within normal limits - CT abdomen / pelvis 07/04: hepatomegaly, unchanged hiatal hernia, mild acute inflammatory changes of proximal sigmoid, uncomplicated hernia, thickened bladder - US abdomen 07/04: hepato-steatosis, no cholelithiasis, no acute cholecystitis, no free fluid - s/p IV fluid hydration - c/w Ciprofloxacin and Flagyl (Day #3); will change to PO - Diet fully advanced - Patient was taken off of Dilaudid yesterday and given Morphine for pain control - Patient has had several complaints of pain and wants to return to Dilaudid; I have advised him that we will get a Pain management consultation Left inguinal hernia - no evidence of strangulation - c/w pain control; will begin to taper - Pain management consultation pending HTN - BP moderately elevated - c/w Lisinopril 40 - Will add Carvedilol 3.125 BID DLP - c/w Pravastatin COPD - no evidence of exacerbation - c/w Albuterol Alcohol use history - c/w MVI, Thiamine and Folate Nicotine dependence - c/w Nicotine patch Depression - c/w Citalopram Chronic back pain - Plan to return to home regimen when tolerating - Pain management consultation pending GERD - c/w Protonix, Will change to PO DVT prophylaxis - c/w Heparin VS,Fishbone, I+O VS, Fishbone, I+O Laboratory Tests 07/06/17 06:19 Red Blood Count 4.78, Mean Corpuscular Volume 95.6, Mean Corpuscular Hemoglobin 32.4, Mean Corpuscular Hemoglobin Concent 33.9, Red Cell Distribution Width 12.8 07/06/17 07:13 Calcium Level 8.7, Aspartate Amino Transf (AST/SGOT) 43 H, Alanine Aminotransferase (ALT/SGPT) 54, Alkaline Phosphatase 69, Total Bilirubin 0.3, Total Protein 6.4, Albumin 3.3 Vital Signs Date Time Temp Pulse Resp B/P (MAP) Pulse Ox O2 Delivery O2 Flow Rate FiO2 07/06/17 10:46 18 07/06/17 06:00 96.9 68 158/100 (119) 98 Room Air I&O- Last 24 Hours up to 6 AM 07/07/17 06:00 Intake Total 360 ml Output Total 375 ml Balance -15 ml ELEONORA MALIK MD Jul 06, 2017 12:20
[2017-07-06 14:00] VITALS: BP 135/58
[2017-07-06] MEDS: metroNIDAZOLE (FLAGYL) 500 MG TAB PO SCH ×2 (14:33→21:05)
--- NOTE | 2017-07-06 15:45 | IPNPDOC ---
Date Seen The patient was seen on 07/06/17. Progress Note SUBJECTIVE: 47 M with a history of HTN, HLD, COPD, CAD stent 10/2014, cath 1 month ago neg, history of right inguinal hernia repair and abd hernia repair. Pt is a heavy smoker ( 2 + packs a day) and heavy ETOH use( drinks 6 to 8 beers a day). He presented to the ED with a 1-2 months of progressive worsening LLQ abd pain 8/10 cramping. reported likely due to left reducible inguinal hernia. . repored 1x billious vomiting yesterday. reported 3 episodes of diarrheas of 1 week with last BM normal consistency. Denied chest pain, fever, chill, sob. denied epigastric pain. reported abd pain improved with beer. Surgery was consulted because of the inguinal hernia. Patient's diet was changed to regular diet for dinner last night. She reports this morning that he is tolerating the food fine. He complained of left groin pain. He admits that the medication is helping but when he is off the medication pain comes back. OBJECTIVE PHYSICAL EXAMINATION: VITAL SIGNS: Please see below. GENERAL: Alert gentleman resting comfortably in bed CARDIOVASCULAR: S1 and S2 present, no murmurs no rubs or gallops RESPIRATORY: Lungs are clear to auscultate, anterior and posterior ABDOMINAL: Moderately tender to palpate in the left lower quadrant, improved from yesterday's physical exam, bowel sounds present in all 4 quadrants GROIN: left inguinal hernia EXTREMITIES: No deformities noted LABORATORY DATA: Please see below. IMAGING: CT abdomen: Hepatomegaly with fatty liver infiltration. Unchanged sliding hiatal hernia. Suspected mild acute inflammatory changes of the proximal sigmoid colon. Uncomplicated hernias of the anterior abdominal wall. Prostatomegaly.Thickened bladder. Underdistention, spasm, chronic bladder outflow obstruction changes versus cystitis. Abdominal right upper quadrant US: Hepato steatosis. The pancreas is obscured by bowel gas. No cholelithiasis. No evidence of acute cholecystitis. No free fluid. Otherwise, negative abdominal right upper quadrant ultrasound. MICROBIOLOGY: Please see below. ASSESSMENT AND PLAN: A 47ear-old male admitted for left lower quadrant abdominal pain. Patient has a history of alcohol and tobacco heavy usage. 1.Diverticulitis: Patient has been started on Cipro and metronidazole for his diverticulitis. Patient is tolerating antibiotics well. At the completion of antibiotics and after discharge. Patient has agreed to follow-up the diverticulitis as an outpatient with a colonoscopy in 6-8 weeks. 2. Pancreatitis: Patient's lipase level is 398. There is a significant decrease from admission. I will continue to monitor lipase is as it trends down. Patient is already tolerating regular diet without any difficulty. 3. Abdominal and inguinal hernia: Hernia is anterior to to diverticulitis. At this point surgical intervention is recommended until diverticulitis is healed. I recommend follow-up as an outpatient for hernia assessment upon discharge. VS, I&O, 24H, Fishbone Vital Signs/I&O Vital Signs Date Time Temp Pulse Resp B/P (MAP) Pulse Ox O2 Delivery O2 Flow Rate FiO2 07/06/17 14:46 18 07/06/17 14:00 96.4 80 135/58 (83) 96 Room Air I&O- Last 24 Hours up to 6 AM 07/07/17 06:00 Intake Total 1080 ml Output Total 375 ml Balance 705 ml Laboratory Data 24H LABS Laboratory Tests 2 07/06/17 07:13: Anion Gap 6L, Glomerular Filtration Rate > 60.0, Blood Urea Nitrogen 6L, Creatinine 0.76, Sodium Level 136, Potassium Level 3.8, Chloride Level 102, Carbon Dioxide Level 28, Calcium Level 8.7, Aspartate Amino Transf (AST/SGOT) 43H, Alanine Aminotransferase (ALT/SGPT) 54, Alkaline Phosphatase 69, Total Bilirubin 0.3, Total Protein 6.4, Albumin 3.3, Magnesium Level 1.9, Albumin/ Globulin Ratio 1.06, Lipase 398H CBC/BMP Laboratory Tests 07/06/17 06:19 Red Blood Count 4.78, Mean Corpuscular Volume 95.6, Mean Corpuscular Hemoglobin 32.4, Mean Corpuscular Hemoglobin Concent 33.9, Red Cell Distribution Width 12.8 07/06/17 07:13 Calcium Level 8.7, Aspartate Amino Transf (AST/SGOT) 43 H, Alanine Aminotransferase (ALT/SGPT) 54, Alkaline Phosphatase 69, Total Bilirubin 0.3, Total Protein 6.4, Albumin 3.3 Microbiology Microbiology 07/04/17 Urine Culture - Final, Complete GME ATTESTATION GME ATTESTATION My preceptor for this patient encounter was physically present in the building during the encounter and was fully available. As needed, all aspects of the patient interview, examination, medical decision making process, and medical care plan development were reviewed and approved by the preceptor. Preceptor is aware and concurs with the plan as stated in the body of this note and will attest to such by his/her cosignature. DAI LORENZO DO Jul 06, 2017 15:45 Jared Estes Jr Jul 19, 2017 11:07
[2017-07-06] MEDS ORDERED: HYDROmorphone 2 MG TAB PO PRN (18:30)
[2017-07-06] MEDS: CIPROFLOXACIN 500 MG TAB PO SCH (18:36)
[2017-07-06] MEDS: PRAVASTATIN 20 MG TAB PO SCH (21:04)
[2017-07-06] MEDS: MORPHINE 15 MG SA TAB PO SCH (21:05)
[2017-07-06] MEDS: NICOTINE 21MG/24HR 1 EA TRANSDERMAL TD SCH (21:07)
[2017-07-06 22:00] VITALS: BP 159/87
[2017-07-07] MEDS: metroNIDAZOLE (FLAGYL) 500 MG TAB PO SCH ×3 (05:40→21:19)
[2017-07-07] MEDS: CIPROFLOXACIN 500 MG TAB PO SCH ×2 (05:40→17:24)
[2017-07-07] MEDS: HEPARIN SOD (PORCINE) 5000 UNITS/ML VIAL SC SCH ×3 (05:40→21:17)
[2017-07-07 06:00] VITALS: BP 146/90
[2017-07-07 06:57] LABS: MEAN CORPUSCULAR HEMOGLOBIN 32.6 pg (27.0-33.0); MEAN CORPUSCULAR HGB CONC 34.4 g/dl (32.0-36.5); MEAN CORPUSCULAR VOLUME 94.9 fl (80.0-96.0); RED CELL DISTRIBUTION WIDTH 12.9 % (11.5-14.5); WHITE BLOOD COUNT 5.6 10^3/uL (4.0-10.0)
[2017-07-07 07:17] LABS: ALBUMIN 3.1 GM/DL (3.2-5.2); ALBUMIN/GLOBULIN RATIO 0.89 (1.00-1.93); ALKALINE PHOSPHATASE 60 U/L (45-117); ALT/SGPT 53 U/L (12-78); ANION GAP 7 MEQ/L (8-16); AST/SGOT 36 U/L (15-37); BILIRUBIN,TOTAL 0.4 MG/DL (0.2-1.0); BLOOD UREA NITROGEN 8 MG/DL (7-18); CALCIUM LEVEL 8.6 MG/DL (8.5-10.1); CARBON DIOXIDE LEVEL 28 MEQ/L (21-32); CHLORIDE LEVEL 103 MEQ/L (98-107); CREATININE FOR GFR 0.75 MG/DL (0.70-1.30); GLOMERULAR FILTRATION RATE > 60.0 (>60); GLUCOSE, FASTING 111 MG/DL (70-105); POTASSIUM SERUM 3.8 MEQ/L (3.5-5.1); SODIUM LEVEL 138 MEQ/L (136-145); TOTAL PROTEIN 6.6 GM/DL (6.4-8.2)
[2017-07-07] MEDS: SENOKOT S TAB PO SCH ×2 (09:28→20:35)
[2017-07-07] MEDS: MORPHINE 15 MG SA TAB PO SCH ×2 (09:28→20:36)
[2017-07-07] MEDS: CLOPIDOGREL 75 MG TAB PO SCH (09:29)
[2017-07-07] MEDS: MULTIVITAMINS/MINERALS THERAP 1 TAB PO SCH (09:29)
[2017-07-07] MEDS: FOLIC ACID 1 MG TAB PO SCH (09:29)
[2017-07-07] MEDS: THIAMINE 100 MG TAB PO SCH (09:29)
[2017-07-07] MEDS: CARVedilol 3.125 MG TAB PO SCH ×2 (09:30→20:35)
[2017-07-07] MEDS: PANTOPRAZOLE 40MG TAB (PROTONIX) PO SCH (09:30)
[2017-07-07] MEDS: LISINOPRIL 40 MG TAB PO SCH (09:30)
[2017-07-07] MEDS: CitaloPRAM (CeleXA) 20 MG TAB PO SCH (09:30)
--- NOTE | 2017-07-07 11:14 | IPNPDOC ---
Text Note Date of Service The patient was seen on 07/07/17. NOTE Subjective: Patient is a 47 year old male with a PMHx of HTN, DLP, CAD s/p stent ( 10/2014), COPD, Alcohol abuse and Active Smoker who presented to the ER with complaints of LLQ abdominal pain. He is known to have a L inguinal hernia. CT scan completed in the ER revealed that he had sigmoid thickening and an elevation in his lipase. Patient was admitted to hospitalist service for pancreatitis; he was kept NPO, started on aggressive IV fluid hydration and pain control. Surgery has evaluated that patient on 07/04 and suggestive acute diverticulitis. Patient has been started on Ciprofloxacin and Flagyl. Patient was seen and examined at the bedside. Pain management had evaluated him yesterday and recommended some changes that were implemented. Currently he notes that there is improvement in his pain. Denies nausea, vomiting, diarrhea or constipation. Objective: Vitals (See below) General: Lying in bed, no acute distress, comfortable, AAOx3 HEENT: NC, AT CVS: RRR, +S1S2 Lungs: Fair air entry b/l, -w/r/r Abdomen: Soft, ND, NT Extremities: - Edema, - Calf tenderness Assessment and plan: Abdominal pain, LLQ / L inguinal area - likely 2/2 acute diverticulitis of sigmoid colon, possibly 2/2 exacerbation of inguinal hernia, less likely acute pancreatitis - Denied nausea or vomiting, noted that he didn't have abdominal pain this morning upon waking up - Physical without any abdominal tenderness - Not typical presentation of acute pancreatitis, No leukocytosis, No lactic acidosis, Remains afebrile - Lipase has normalized; FLP within normal limits - CT abdomen / pelvis 07/04: hepatomegaly, unchanged hiatal hernia, mild acute inflammatory changes of proximal sigmoid, uncomplicated hernia, thickened bladder - US abdomen 07/04: hepato-steatosis, no cholelithiasis, no acute cholecystitis, no free fluid - s/p IV fluid hydration; c/w Ciprofloxacin and Flagyl PO (Day #4) - Diet fully advanced Chronic lower back pain - exacerbated by left lower quadrant pain (See above) - Pain management has been consultation; appreciate their input - Restarted Morphine ER 15 BID - Restarted Dilaudid 2mg q6hp - At this point, Decrease frequency of Dilaudid to q8hp and restarted [place] 10/ 650 q4hp Left inguinal hernia - no evidence of strangulation HTN - BP moderately elevated - c/w Lisinopril 40 - Will add Carvedilol 3.125 BID DLP - c/w Pravastatin COPD - no evidence of exacerbation - c/w Albuterol Alcohol use history - c/w MVI, Thiamine and Folate Nicotine dependence - c/w Nicotine patch Depression - c/w Citalopram GERD - c/w Protonix DVT prophylaxis - c/w Heparin VS,Fishbone, I+O VS, Fishbone, I+O Laboratory Tests 07/07/17 06:13 Red Blood Count 4.72, Mean Corpuscular Volume 94.9, Mean Corpuscular Hemoglobin 32.6, Mean Corpuscular Hemoglobin Concent 34.4, Red Cell Distribution Width 12.9 , Calcium Level 8.6, Aspartate Amino Transf (AST/SGOT) 36, Alanine Aminotransferase (ALT/SGPT) 53, Alkaline Phosphatase 60, Total Bilirubin 0.4, Total Protein 6.6, Albumin 3.1 L Vital Signs Date Time Temp Pulse Resp B/P (MAP) Pulse Ox O2 Delivery O2 Flow Rate FiO2 07/07/17 09:30 86 133/92 07/07/17 09:28 18 07/07/17 06:00 96.8 95 Room Air I&O- Last 24 Hours up to 6 AM 07/08/17 05:59 Intake Total 770 ml Output Total 675 ml Balance 95 ml ELEONORA MALIK MD Jul 07, 2017 11:14
[2017-07-07 14:00] VITALS: BP 154/98
[2017-07-07] MEDS: HYDROmorphone 2 MG TAB PO PRN (14:11)
[2017-07-07] MEDS: NORCO, ANEXSIA 5/325MG TABLET (HYDROcodone/ACETAMINOPHEN) PO PRN ×2 (19:45→21:20)
[2017-07-07 20:00] VITALS: BP 180/110
[2017-07-07] MEDS: PRAVASTATIN 20 MG TAB PO SCH (20:34)
[2017-07-07] MEDS: NICOTINE 21MG/24HR 1 EA TRANSDERMAL TD SCH (20:36)
[2017-07-07 21:45] VITALS: BP 152/92
[2017-07-07 22:00] VITALS: BP 180/110
[2017-07-08] MEDS: HYDROmorphone 2 MG TAB PO PRN ×2 (00:34→15:40)
[2017-07-08 02:00] VITALS: BP_SYST 150; BP_SYST 170; BP_DIAS 108
[2017-07-08 04:30] VITALS: BP 160/90
[2017-07-08] MEDS: HEPARIN SOD (PORCINE) 5000 UNITS/ML VIAL SC SCH (05:44)
[2017-07-08] MEDS: CIPROFLOXACIN 500 MG TAB PO SCH ×2 (05:49→17:22)
[2017-07-08] MEDS: metroNIDAZOLE (FLAGYL) 500 MG TAB PO SCH ×3 (05:49→21:22)
[2017-07-08 06:53] LABS: MEAN CORPUSCULAR HEMOGLOBIN 31.6 pg (27.0-33.0); MEAN CORPUSCULAR HGB CONC 33.1 g/dl (32.0-36.5); MEAN CORPUSCULAR VOLUME 95.5 fl (80.0-96.0); RED CELL DISTRIBUTION WIDTH 12.8 % (11.5-14.5); WHITE BLOOD COUNT 5.1 10^3/uL (4.0-10.0)
[2017-07-08] MEDS ORDERED: HYDROmorphone 2 MG TAB PO PRN (07:15)
[2017-07-08 07:18] LABS: ALBUMIN/GLOBULIN RATIO 0.97 (1.00-1.93); ALKALINE PHOSPHATASE 55 U/L (45-117); ALT/SGPT 59 U/L (12-78); ANION GAP 4 MEQ/L (8-16); AST/SGOT 53 U/L (15-37); BILIRUBIN,TOTAL 0.3 MG/DL (0.2-1.0); BLOOD UREA NITROGEN 10 MG/DL (7-18); CALCIUM LEVEL 8.8 MG/DL (8.5-10.1); CARBON DIOXIDE LEVEL 30 MEQ/L (21-32); CHLORIDE LEVEL 104 MEQ/L (98-107); CREATININE FOR GFR 0.82 MG/DL (0.70-1.30); GLOMERULAR FILTRATION RATE > 60.0 (>60); GLUCOSE, FASTING 103 MG/DL (70-105); POTASSIUM SERUM 3.8 MEQ/L (3.5-5.1); SODIUM LEVEL 138 MEQ/L (136-145); TOTAL PROTEIN 6.1 GM/DL (6.4-8.2)
[2017-07-08] MEDS: SENOKOT S TAB PO SCH ×2 (09:49→21:23)
[2017-07-08] MEDS: CLOPIDOGREL 75 MG TAB PO SCH (09:49)
[2017-07-08] MEDS: MULTIVITAMINS/MINERALS THERAP 1 TAB PO SCH (09:49)
[2017-07-08] MEDS: THIAMINE 100 MG TAB PO SCH (09:49)
[2017-07-08] MEDS: PANTOPRAZOLE 40MG TAB (PROTONIX) PO SCH (09:49)
[2017-07-08] MEDS: FOLIC ACID 1 MG TAB PO SCH (09:49)
[2017-07-08 09:51] VITALS: BP_SYST 152
[2017-07-08] MEDS: amLODIPine 5 MG TAB PO SCH (09:51)
[2017-07-08] MEDS: MORPHINE 15 MG SA TAB PO SCH ×2 (09:51→21:23)
[2017-07-08] MEDS: CitaloPRAM (CeleXA) 20 MG TAB PO SCH (09:51)
[2017-07-08] MEDS: LISINOPRIL 40 MG TAB PO SCH (09:51)
[2017-07-08] MEDS: SUCRALFATE 1 GM TAB PO SCH ×3 (11:51→21:22)
[2017-07-08 12:02] LABS: MEAN CORPUSCULAR HEMOGLOBIN 32.2 pg (27.0-33.0); MEAN CORPUSCULAR HGB CONC 33.6 g/dl (32.0-36.5); WHITE BLOOD COUNT 5.9 10^3/uL (4.0-10.0)
--- NOTE | 2017-07-08 12:19 | IPNPDOC ---
Text Note Date of Service The patient was seen on 07/08/17. NOTE Subjective: Patient is a 47 year old male with a PMHx of HTN, DLP, CAD s/p stent ( 10/2014), COPD, Alcohol abuse and Active Smoker who presented to the ER with complaints of LLQ abdominal pain. He is known to have a L inguinal hernia. CT scan completed in the ER revealed that he had sigmoid thickening and an elevation in his lipase. Patient was admitted to hospitalist service for pancreatitis; he was kept NPO, started on aggressive IV fluid hydration and pain control. Surgery has evaluated that patient on 07/04 and suggestive acute diverticulitis. Patient has been started on Ciprofloxacin and Flagyl. Patient was seen and examined at the bedside. Patient has noted that he has been getting better sleep with the new pain regimen. He has noticed that he has been having dark stools this morning. Denies any bright red bleeding. I have advised him that we would start a new blood pressure medication to his regimen. We will also continue to taper down on the Dilaudid received. Objective: Vitals (See below) General: Lying in bed, no acute distress, comfortable, AAOx3 HEENT: NC, AT CVS: RRR, +S1S2 Lungs: Fair air entry b/l, -w/r/r Abdomen: Soft, ND, NT Extremities: - Edema, - Calf tenderness Assessment and plan: Abdominal pain, LLQ / L inguinal area - likely 2/2 acute diverticulitis of sigmoid colon, possibly 2/2 exacerbation of inguinal hernia, less likely acute pancreatitis - Has not had any nausea or vomiting throughout hospital stay, although is still complaining of left inguinal pain - Again, his physical does not reveal any left lower quadrant pain or any left inguinal pain - No leukocytosis, No lactic acidosis, Remains afebrile - Lipase has normalized; FLP within normal limits - CT abdomen / pelvis 07/04: hepatomegaly, unchanged hiatal hernia, mild acute inflammatory changes of proximal sigmoid, uncomplicated hernia, thickened bladder - US abdomen 07/04: hepato-steatosis, no cholelithiasis, no acute cholecystitis, no free fluid - s/p IV fluid hydration; c/w Ciprofloxacin and Flagyl PO (Day #5) - Diet fully advanced and tolerating Chronic lower back pain - exacerbated by left lower quadrant pain (See above) - Pain management has been consultation; appreciate their input - c/w Morphine ER 15 BID and [place] 10/650 q4hp - Will continue to decrease frequency of Dilaudid to q12hp and anticipate discharge tomorrow Dark stools - possibly 2/2 upper GI bleed - Reports 1 episode of a dark black stool - Denies any epigastric pain - Will recheck Hg at 1200 PM - Stopped Heparin - c/w Protonix; added Sucralfate Left inguinal hernia - no evidence of strangulation HTN - BP moderately elevated - c/w Lisinopril 40 - Added Amlodipine to his BP regimen for better control DLP - c/w Pravastatin COPD - no evidence of exacerbation - c/w Albuterol Alcohol use history - c/w MVI, Thiamine and Folate Nicotine dependence - c/w Nicotine patch Depression - c/w Citalopram GERD - c/w Protonix DVT prophylaxis - c/w Heparin VS,Fishbone, I+O VS, Fishbone, I+O Laboratory Tests 07/08/17 06:15 Red Blood Count 4.71, Mean Corpuscular Volume 95.5, Mean Corpuscular Hemoglobin 31.6, Mean Corpuscular Hemoglobin Concent 33.1, Red Cell Distribution Width 12.8 , Calcium Level 8.8, Aspartate Amino Transf (AST/SGOT) 53 H, Alanine Aminotransferase (ALT/SGPT) 59, Alkaline Phosphatase 55, Total Bilirubin 0.3, Total Protein 6.1 L, Albumin 3.0 L Vital Signs Date Time Temp Pulse Resp B/P (MAP) Pulse Ox O2 Delivery O2 Flow Rate FiO2 07/08/17 09:51 82 152/87 07/08/17 09:51 18 07/08/17 06:00 97.7 97 Room Air I&O- Last 24 Hours up to 6 AM 07/09/17 06:00 Intake Total 720 ml Output Total 800 ml Balance -80 ml ELEONORA MALIK MD Jul 08, 2017 12:19
[2017-07-08] MEDS: NORCO, ANEXSIA 5/325MG TABLET (HYDROcodone/ACETAMINOPHEN) PO PRN ×2 (14:03→18:05)
[2017-07-08] MEDS: NICOTINE 21MG/24HR 1 EA TRANSDERMAL TD SCH (21:00)
[2017-07-08] MEDS: PRAVASTATIN 20 MG TAB PO SCH (21:23)
[2017-07-08 22:00] VITALS: BP 141/85
[2017-07-09] MEDS: NORCO, ANEXSIA 5/325MG TABLET (HYDROcodone/ACETAMINOPHEN) PO PRN (02:07)
[2017-07-09] MEDS: HYDROmorphone 2 MG TAB PO PRN (04:27)
[2017-07-09 06:00] VITALS: BP 134/74
[2017-07-09] MEDS: metroNIDAZOLE (FLAGYL) 500 MG TAB PO SCH (06:00)
[2017-07-09] MEDS: CIPROFLOXACIN 500 MG TAB PO SCH (06:00)
[2017-07-09 07:03] LABS: MEAN CORPUSCULAR HEMOGLOBIN 32.5 pg (27.0-33.0); MEAN CORPUSCULAR HGB CONC 33.5 g/dl (32.0-36.5); MEAN CORPUSCULAR VOLUME 96.9 fl (80.0-96.0); RED CELL DISTRIBUTION WIDTH 13.1 % (11.5-14.5); WHITE BLOOD COUNT 5.3 10^3/uL (4.0-10.0)
[2017-07-09 07:27] LABS: ALBUMIN 3.2 GM/DL (3.2-5.2); ALBUMIN/GLOBULIN RATIO 0.91 (1.00-1.93); ALKALINE PHOSPHATASE 55 U/L (45-117); ALT/SGPT 105 U/L (12-78); ANION GAP 3 MEQ/L (8-16); AST/SGOT 112 U/L (15-37); BILIRUBIN,TOTAL 0.4 MG/DL (0.2-1.0); BLOOD UREA NITROGEN 8 MG/DL (7-18); CALCIUM LEVEL 8.7 MG/DL (8.5-10.1); CARBON DIOXIDE LEVEL 32 MEQ/L (21-32); CHLORIDE LEVEL 105 MEQ/L (98-107); CREATININE FOR GFR 0.85 MG/DL (0.70-1.30); GLOMERULAR FILTRATION RATE > 60.0 (>60); GLUCOSE, FASTING 105 MG/DL (70-105); MAGNESIUM LEVEL 1.9 MG/DL (1.8-2.4); POTASSIUM SERUM 4.4 MEQ/L (3.5-5.1); SODIUM LEVEL 140 MEQ/L (136-145); TOTAL PROTEIN 6.7 GM/DL (6.4-8.2)
[2017-07-09] MEDS: MORPHINE 15 MG SA TAB PO SCH (09:16)
[2017-07-09 09:26] VITALS: BP_DIAS 86
[2017-07-09] MEDS: LISINOPRIL 40 MG TAB PO SCH (09:26)
[2017-07-09] MEDS: MULTIVITAMINS/MINERALS THERAP 1 TAB PO SCH (09:26)
[2017-07-09] MEDS: amLODIPine 5 MG TAB PO SCH (09:26)
[2017-07-09] MEDS: CLOPIDOGREL 75 MG TAB PO SCH (09:26)
[2017-07-09] MEDS: PANTOPRAZOLE 40MG TAB (PROTONIX) PO SCH (09:27)
[2017-07-09] MEDS: CitaloPRAM (CeleXA) 20 MG TAB PO SCH (09:27)
[2017-07-09] MEDS: THIAMINE 100 MG TAB PO SCH (09:27)
[2017-07-09] MEDS: FOLIC ACID 1 MG TAB PO SCH (09:27)
[2017-07-09] MEDS: SUCRALFATE 1 GM TAB PO SCH (09:27)
[2017-07-09] MEDS: SENOKOT S TAB PO SCH (09:27)
--- NOTE | 2017-07-09 09:30 | IPNPDOC ---
Date Seen The patient was seen on 07/09/17. Progress Note SUBJECTIVE: 47 M with a history of HTN, HLD, COPD, CAD stent 10/2014, cath 1 month ago neg, history of right inguinal hernia repair and abd hernia repair. Pt is a heavy smoker ( 2 + packs a day) and heavy ETOH use( drinks 6 to 8 beers a day). He presented to the ED with a 1-2 months of progressive worsening LLQ abd pain 8/10 cramping. reported likely due to left reducible inguinal hernia. . repored 1x billious vomiting yesterday. reported 3 episodes of diarrheas of 1 week with last BM normal consistency. Denied chest pain, fever, chill, sob. denied epigastric pain. reported abd pain improved with beer. Surgery was consulted because of the inguinal hernia. This morning, patient states that he is no longer in pain. He is tolerating regular diet will and is not having any issues with is P.O antibiotics. OBJECTIVE PHYSICAL EXAMINATION: VITAL SIGNS: Please see below. GENERAL: Alert gentleman resting comfortably in bed CARDIOVASCULAR: S1 and S2 present, no murmurs no rubs or gallops RESPIRATORY: Lungs are clear to auscultate, anterior and posterior ABDOMINAL: No tenderness to palpation on LLQ. Bowel sounds present in all four quadrant. GROIN: left inguinal hernia EXTREMITIES: No deformities noted LABORATORY DATA: Please see below. IMAGING: CT abdomen: Hepatomegaly with fatty liver infiltration. Unchanged sliding hiatal hernia. Suspected mild acute inflammatory changes of the proximal sigmoid colon. Uncomplicated hernias of the anterior abdominal wall. Prostatomegaly.Thickened bladder. Underdistention, spasm, chronic bladder outflow obstruction changes versus cystitis. Abdominal right upper quadrant US: Hepato steatosis. The pancreas is obscured by bowel gas. No cholelithiasis. No evidence of acute cholecystitis. No free fluid. Otherwise, negative abdominal right upper quadrant ultrasound. MICROBIOLOGY: Please see below. ASSESSMENT AND PLAN: A 47ear-old male admitted for left lower quadrant abdominal pain. Pt can be D/C today with instruction to follow up the left inguinal hernia with Dr. Estes. 1.Diverticulitis: Resolved: Patient has agreed to follow-up the diverticulitis as an outpatient with a colonoscopy in 6-8 weeks. 2. Pancreatitis: Patient's lipase level is 356 ( Normal level). Patient is already tolerating regular diet without any difficulty. 3. Abdominal and inguinal hernia: Hernia is anterior to to diverticulitis. I recommend follow-up as an outpatient for hernia assessment upon discharge. Thanks for involving surgery in the care of this patient. VS, I&O, 24H, Fishbone Vital Signs/I&O Vital Signs Date Time Temp Pulse Resp B/P (MAP) Pulse Ox O2 Delivery O2 Flow Rate FiO2 07/09/17 06:00 97.0 60 19 134/74 (94) 95 Room Air Laboratory Data 24H LABS Laboratory Tests 2 07/09/17 06:48: Anion Gap 3L, Glomerular Filtration Rate > 60.0, Blood Urea Nitrogen 8, Creatinine 0.85, Sodium Level 140, Potassium Level 4.4, Chloride Level 105, Carbon Dioxide Level 32, Calcium Level 8.7, Aspartate Amino Transf (AST/SGOT) 112H, Alanine Aminotransferase (ALT/SGPT) 105H, Alkaline Phosphatase 55, Total Bilirubin 0.4, Total Protein 6.7, Albumin 3.2, Magnesium Level 1.9, Albumin/ Globulin Ratio 0.91L CBC/BMP Laboratory Tests 07/08/17 11:51 Red Blood Count 4.72, Mean Corpuscular Volume 96.0, Mean Corpuscular Hemoglobin 32.2, Mean Corpuscular Hemoglobin Concent 33.6, Red Cell Distribution Width 13.0 07/09/17 06:48 Red Blood Count 4.77, Mean Corpuscular Volume 96.9 H, Mean Corpuscular Hemoglobin 32.5, Mean Corpuscular Hemoglobin Concent 33.5, Red Cell Distribution Width 13.1, Calcium Level 8.7, Aspartate Amino Transf (AST/SGOT) 112 H, Alanine Aminotransferase (ALT/SGPT) 105 H, Alkaline Phosphatase 55, Total Bilirubin 0.4, Total Protein 6.7, Albumin 3.2 Microbiology Microbiology 07/04/17 Urine Culture - Final, Complete GME ATTESTATION GME ATTESTATION My preceptor for this patient encounter was physically present in the building during the encounter and was fully available. As needed, all aspects of the patient interview, examination, medical decision making process, and medical care plan development were reviewed and approved by the preceptor. Preceptor is aware and concurs with the plan as stated in the body of this note and will attest to such by his/her cosignature. DAI LORENZO DO Jul 09, 2017 09:30
[2017-07-09] MEDS ORDERED: CIPR-249 PO (10:17)
[2017-07-09] MEDS ORDERED: HYDR-2807 PO (10:17)
[2017-07-09] MEDS ORDERED: SUCR1TA PO (10:17)
[2017-07-09] MEDS ORDERED: FLAG500T PO (10:17)
[2017-07-09] MEDS ORDERED: AMLO5TAB2 PO (10:17)
--- NOTE | 2017-07-09 16:57 | DSES ---
DATE OF ADMISSION: 07/04/2017 DATE OF DISCHARGE: 07/09/2017 ATTENDING PHYSICIAN: Linh Dominguez MD PRIMARY CARE PROVIDER: Is the same as his pain management provider. REFERRING PHYSICIAN: None. CONSULTING PHYSICIANS: Dr. Estes. CONDITION ON DISCHARGE: Stable. FINAL DIAGNOSES: 1. Acute diverticulitis. 2. Possible pancreatitis. PROCEDURES: None. HISTORY OF PRESENT ILLNESS: The patient is a 47-year-old male with past medical history of hypertension, dyslipidemia, coronary artery disease status post stent in October of 2014, chronic obstructive pulmonary disease (COPD), alcohol abuse, and active smoker who presented to the emergency room (ER) with complaints of left lower quadrant abdominal pain. He is known to have a left inguinal hernia. CT scan was completed in the ER which revealed that he had a sigmoid thickening and an elevation in his lipase. The patient was admitted to the hospitalist service for possible pancreatitis. He was kept nothing by mouth and started on IV fluid hydration and pain control. Surgery subsequently evaluated the patient on 07/04/2017 and suggested that imaging was consistent with acute diverticulitis. The patient was then started on ciprofloxacin and Flagyl. HOSPITAL COURSE: 1. Abdominal pain, left lower quadrant/left inguinal area, likely secondary to acute diverticulitis of sigmoid colon, possibly secondary to exacerbation of inguinal hernia less likely or acute pancreatitis also less likely. He has not had any nausea or vomiting throughout the hospital stay. His left lower quadrant abdominal pain/left inguinal pain has improved throughout the hospital course but still requiring pain medications. Again, physical does not reveal any left lower quadrant abdominal pain or left inguinal pain. No leukocytosis was noted. No lactic acidosis and he has remained afebrile throughout the entire hospital course. Lipase was elevated initially but has normalized. Fasting lipid panel was also within normal limits. CT abdomen and pelvis on 07/04/2017 revealed hepatomegaly, unchanged hiatal hernia, mild acute inflammatory changes of the proximal sigmoid, uncomplicated hernia, and a thickened bladder. Ultrasound of the abdomen was acquired on 07/04/2017 which revealed hepatosteatosis. No cholelithiasis. No acute cholecystitis. No free fluid. Status post IV fluid hydration which he had received initially throughout the hospital course and has been discontinued. The patient has been put on ciprofloxacin and Flagyl orally, initially IV and has been transitioned to oral. Today mcclure day number six. The patient will continue his antibiotics for completion of antibiotic course. His diet has been fully advanced and he has been tolerating it well. 2. Chronic lower back pain, exacerbated by his left lower quadrant/left inguinal pain. Pain management was consulted, but given his excessive need for pain medications, the patient was continued with his home medication of extended release morphine at 15 mg twice a day as well as Hume 10/650 every four hours as needed for pain. The patient was put on Dilaudid at the recommendation of pain management. The patient was initially taken off of Dilaudid and transitioned to morphine but the patient was unable to tolerate this and pain management had recommended that Dilaudid be reinstituted at every six hours. From that point, the patient has been titrated down to every 12 hours and now he is currently only on Hume. 3. Dark stools, felt to be secondary to upper gastrointestinal (GI) bleed. Reports one episode of dark stools. Denies any epigastric pain. Hemoglobin was followed and has remained stable. Heparin has been discontinued. He has been put on Protonix as well as sucralfate. 4. Left inguinal hernia. No evidence of strangulation. 5. Hypertension. Blood pressure was elevated in the hospital course and he has been started on amlodipine. This has helped keep his blood pressure well-controlled. This will be continued as an outpatient. 6. Dyslipidemia. Continue with pravastatin. 7. Chronic obstructive pulmonary disease (COPD). No evidence of exacerbation. Continue with albuterol. 8. Alcohol use history. Continue with multivitamin, thiamin, and folate. 9. Nicotine dependence. Continue with nicotine patch. 10. Depression. Continue with citalopram. 11. Gastroesophageal reflux disease (GERD). Continue with Protonix. 12. Deep vein thrombosis (DVT) prophylaxis. Continued with heparin initially but has been changed to sleeve compression devices. DISCHARGE MEDICATIONS: The patient has been discharged home with the following medication list: - acetaminophen/hydrocodone 10/300 one tablet by mouth every six hours as needed for moderate pain - amlodipine 5 mg by mouth daily - ciprofloxacin 500 mg by mouth twice a day - Flagyl 500 mg by mouth every eight hours - sucralfate 1 gram by mouth before meals and at bedtime Continued medications include: - his existing pain medication of hydrocodone - albuterol two puffs inhaled every four hours as needed for shortness of breath - citalopram 20 mg by mouth daily - Plavix 75 mg by mouth daily - lisinopril 40 mg by mouth daily - morphine sulfate 50 mg by mouth twice a day - Protonix 40 mg by mouth twice a day - pravastatin 80 mg by mouth daily DISCHARGE INSTRUCTIONS: The patient has been advised to followup with his primary care provider who is also his pain management provider and surgery within the next seven days. He has been advised to remain compliant with treatment plan and medications and return to the emergency room if he experiences any problems. TIME SPENT ON DISCHARGE: Greater than 35 minutes.
== END 2017-07-09 11:00 | disposition home or self-care (01) | DRG 391 ==
LOC: EDBD 23:57 → M ED 23:57 → M ED INP 07-04 05:50 → M MS4PR 07-04 08:20 → M MSPAV 07-05 14:54
PROVIDERS: ADMIT Hospitalist; ATTEND Internal Medicine
DX: K57.32 Diverticulitis of large intestine without perforation or abscess without bleeding (principal); K85.90 Acute pancreatitis without necrosis or infection, unspecified; I10 Essential (primary) hypertension; E78.5 Hyperlipidemia, unspecified; F17.210 Nicotine dependence, cigarettes, uncomplicated; F10.20 Alcohol dependence, uncomplicated; M54.5 Low back pain; K21.9 Gastro-esophageal reflux disease without esophagitis; F32.9 Major depressive disorder, single episode, unspecified; J44.9 Chronic obstructive pulmonary disease, unspecified; I25.10 Atherosclerotic heart disease of native coronary artery without angina pectoris; Z95.9 Presence of cardiac and vascular implant and graft, unspecified; Z79.899 Other long term (current) drug therapy; Z91.030 Bee allergy status; Z88.0 Allergy status to penicillin; Z88.6 Allergy status to analgesic agent; Z88.8 Allergy status to other drugs, medicaments and biological substances

== ENCOUNTER → 2017-09-20 | Day surgery (SDC) | payer MEDICARE, MEDICAID ==
[~2017-09-20] VITALS: Ht 167.6 cm; Wt 82.6 kg
[~2017-09-20] MED LIST changes: +AMLO5TAB2 PO; +CIPR-249 PO; +CITA20TA4 PO; +FLAG500T PO; +HYDR-2807 PO; +LISI40TAB PO; +NORC10TA21 PO; +NS 1,000 ML IV ONE; +PANT40TA2 PO; +SUCR1TA PO
== END | disposition home or self-care (01) ==
LOC: M OPP 12:36
PROVIDERS: ATTEND Surgery
DX: R19.7 Diarrhea, unspecified (principal); Z53.8 Procedure and treatment not carried out for other reasons

== ENCOUNTER 2018-04-27 17:44 | Emergency (ER) | payer MEDICARE, MEDICAID ==
[2018-04-27] MEDS: METOCLOPRAMIDE INJ 10MG/2ML VIAL (J2765) IV (18:39)
[2018-04-27] MEDS: MORPHINE 2 MG/ML 1ML SYRINGE (J2270) IV (18:40)
== END 2018-04-27 19:47 | disposition home or self-care (01) ==
LOC: M ED 17:44
DX: R55 Syncope and collapse (principal); T14.8XXA Other injury of unspecified body region, initial encounter; W10.8XXA Fall (on) (from) other stairs and steps, initial encounter; Y92.018 Other place in single-family (private) house as the place of occurrence of the external cause; I10 Essential (primary) hypertension; J45.909 Unspecified asthma, uncomplicated; K21.9 Gastro-esophageal reflux disease without esophagitis; I25.10 Atherosclerotic heart disease of native coronary artery without angina pectoris; F33.9 Major depressive disorder, recurrent, unspecified; Z79.899 Other long term (current) drug therapy; Z88.0 Allergy status to penicillin; Z88.8 Allergy status to other drugs, medicaments and biological substances; Z91.030 Bee allergy status; F17.210 Nicotine dependence, cigarettes, uncomplicated
CPT/HCPCS: J2765

== ENCOUNTER 2018-11-18 01:04 | Emergency (ER) | payer MEDICARE, MEDICAID ==
[~2018-11-18] VITALS: Ht 167.6 cm; Wt 85.0 kg
[~2018-11-18 01:04] MED LIST changes: -AMLO5TAB2 PO; +AMLO5TAB6 PO; +LISI40TA PO; -LISI40TAB PO; +NORCOTAB PO; -NS 1,000 ML IV ONE; -PANT40TA2 PO; +PANT40TA3 PO
[2018-11-18 01:46] LABS: BASO # 0.1 10^3/uL (0.0-0.2); BASO % 0.5 % (0.0-1.0); EOS # 0.5 10^3/uL (0.0-0.50); EOS % 4.9 % (0.0-3.0); HEMATOCRIT 41.5 % (42.0-52.0); HEMOGLOBIN 13.8 g/dl (13.5-17.5); LYMPH # 2.6 10^3/uL (1.5-4.5); LYMPH % 26.4 % (24.0-44.0); MEAN CORPUSCULAR HEMOGLOBIN 29.3 pg (27.0-33.0); MEAN CORPUSCULAR HGB CONC 33.3 g/dl (32.0-36.5); MEAN CORPUSCULAR VOLUME 88.1 fl (80.0-96.0); MONO # 0.7 10^3/uL (0.0-0.8); MONO % 7.3 % (0.0-5.0); NEUTROPHILS # 5.9 10^3/uL (1.8-7.7); NEUTROPHILS % 60.6 % (36.0-66.0); PLATELET COUNT, AUTOMATED 219 10^3/uL (150-450); RED BLOOD COUNT 4.71 10^6/uL (4.30-6.10); WHITE BLOOD COUNT 9.7 10^3/uL (4.0-10.0)
[2018-11-18 02:05] LABS: BLOOD UREA NITROGEN 6 MG/DL (7-18); CALCIUM LEVEL 7.8 MG/DL (8.5-10.1); CARBON DIOXIDE LEVEL 24 MEQ/L (21-32); CHLORIDE LEVEL 100 MEQ/L (98-107); CPK CREATINE PHOSPHOKINASE 129 U/L (39-308); CREATININE FOR GFR 0.74 MG/DL (0.70-1.30); GLOMERULAR FILTRATION RATE > 60.0 (>56); GLUCOSE, FASTING 94 MG/DL (70-100); MB/CK RELATIVE INDEX 1.24 (< OR =4); POTASSIUM SERUM 3.5 MEQ/L (3.5-5.1); SODIUM LEVEL 135 MEQ/L (136-145); TROPONIN I < 0.02 NG/ML (< 0.10)
[2018-11-18] MEDS ORDERED: HALOPERIDOL 5 MG/ML VIAL (J1630) IV STA ×2 (02:05→03:42)
[2018-11-18] MEDS ORDERED: diphenhydrAMINE INJ 50MG/ML VIAL (J1200) IM STA (02:05)
[2018-11-18] MEDS ORDERED: MORPHINE 10 MG/ML 1ML VIAL (J2270) IV ONE (02:15)
[2018-11-18] MEDS ORDERED: NS 500 ML IV ONE (02:15)
[2018-11-18] MEDS ORDERED: ISOVUE-370 76% 100ML VIAL (Q9967) As Ordered ONE (02:22)
--- NOTE | 2018-11-18 03:36 | REPVR ---
EXAM: CT Angiography Chest With Contrast EXAM DATE/TIME: 11/18/2018 2:41 AM CLINICAL HISTORY: 48 years old, male; Pain; Chest pain; Additional info: Chest wall pain r posterior TECHNIQUE: Axial computed tomographic angiography images of the chest with intravenous contrast using CT angiography protocol. All CT scans at this facility use at least one of these dose optimization techniques: automated exposure control; mA and/or kV adjustment per patient size (includes targeted exams where dose is matched to clinical indication); or iterative reconstruction. Coronal and sagittal reformatted images were created and reviewed. MIP reconstructed images were created and reviewed. CONTRAST: 75 ml of iso 370 administered intravenously. COMPARISON: CT ANGIO CHEST 04/21/2017 4:55 PM FINDINGS: Pulmonary arteries: The main pulmonary artery measures 26 mm. No pulmonary embolism is identified. Aorta: The ascending thoracic aorta measures 33 mm. Lungs: Minimal bibasilar fibro-atelectatic change. Pleural space: Normal. No pneumothorax. No pleural effusion. Heart: Normal. No cardiomegaly. No pericardial effusion. Mediastinum: Moderate hiatal hernia. Lymph nodes: Unremarkable. No enlarged lymph nodes. Bones/joints: Unremarkable. No acute fracture. Soft tissues: Unremarkable. IMPRESSION: 1. There has been little change from 04/21/2017. No interval pulmonary embolism is identified. 2. Moderate hiatal hernia. 3. Minimal bibasilar fibro-atelectatic change. Electronically signed by: Kirk Cifuentes On 11/18/2018 03:36:03 AM
[2018-11-18 03:45] VITALS: BP 116/58
[2018-11-18] MEDS ORDERED: MORPHINE 4 MG/ML 1ML VIAL/SYRINGE (J2270) IV ONE (03:45)
--- NOTE | 2018-11-19 18:41 | ECGEPIP ---
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
== END 2018-11-18 04:11 | disposition home or self-care (01) ==
LOC: M ED 01:04
DX: M62.830 Muscle spasm of back (principal); M54.5 Low back pain; G89.29 Other chronic pain; I10 Essential (primary) hypertension; K21.9 Gastro-esophageal reflux disease without esophagitis; E78.5 Hyperlipidemia, unspecified; J44.9 Chronic obstructive pulmonary disease, unspecified; Z95.5 Presence of coronary angioplasty implant and graft; F17.200 Nicotine dependence, unspecified, uncomplicated; Z88.0 Allergy status to penicillin; Z88.8 Allergy status to other drugs, medicaments and biological substances; Z91.030 Bee allergy status; Z79.899 Other long term (current) drug therapy; Z79.891 Long term (current) use of opiate analgesic
CPT/HCPCS: 36415; 71275; 80048; 82550; 82553; 84484; 85025; 93005; 93041; 94760; 96372; 96374; 96375; 96376; 99285; J1200; J1630; J2270; Q9967

== ENCOUNTER 2018-12-29 22:49 | Inpatient (IN) | payer MEDICARE, MEDICAID ==
[~2018-12-29] VITALS: Ht 170.2 cm; Wt 81.1 kg
[~2018-12-29 22:49] MED LIST changes: -/CELE20CA PO; +CELE1CAP4 PO; -CITA20TA4 PO; +CITA20TA6 PO; +HYDR-3715 PO; -NORC10TA21 PO; +NORC1TAB5 PO; -NORCOTAB PO
[2018-12-29] MEDS ORDERED: MORPHINE 4 MG/ML 1ML VIAL/SYRINGE (J2270) IV ONE ×2 (23:30→23:45)
[2018-12-30 00:14] LABS: PARTIAL THROMBOPLASTIN TIME 26.8 SECONDS (25.4-37.6)
[2018-12-30 00:18] LABS: INR 0.94; PROTHROMBIN TIME 12.7 SECONDS (12.1-14.4)
[2018-12-30 00:28] LABS: BASO # 0.1 10^3/uL (0.0-0.2); BASO % 0.6 % (0.0-1.0); EOS # 0.5 10^3/uL (0.0-0.50); EOS % 4.4 % (0.0-3.0); HEMOGLOBIN 14.4 g/dl (13.5-17.5); LYMPH % 37.8 % (24.0-44.0); MEAN CORPUSCULAR HGB CONC 34.3 g/dl (32.0-36.5); MEAN CORPUSCULAR VOLUME 84.7 fl (80.0-96.0); MONO # 0.8 10^3/uL (0.0-0.8); MONO % 7.3 % (0.0-5.0); NEUTROPHILS # 5.3 10^3/uL (1.8-7.7); NEUTROPHILS % 49.6 % (36.0-66.0); PLATELET COUNT, AUTOMATED 200 10^3/uL (150-450); RED BLOOD COUNT 4.96 10^6/uL (4.30-6.10); WHITE BLOOD COUNT 10.7 10^3/uL (4.0-10.0)
[2018-12-30 00:29] LABS: BLOOD UREA NITROGEN 6 MG/DL (7-18); CALCIUM LEVEL 8.2 MG/DL (8.5-10.1); CARBON DIOXIDE LEVEL 21 MEQ/L (21-32); CHLORIDE LEVEL 97 MEQ/L (98-107); CREATININE FOR GFR 0.63 MG/DL (0.70-1.30); GLOMERULAR FILTRATION RATE > 60.0 (>56); GLUCOSE, FASTING 81 MG/DL (70-100); POTASSIUM SERUM 3.9 MEQ/L (3.5-5.1); SODIUM LEVEL 130 MEQ/L (136-145)
[2018-12-30] MEDS: GASTROGRAFIN SOLUTION 30ML PO SCH ×2 (00:30→01:01)
[2018-12-30] MEDS ORDERED: LORazepam 2 MG/ML VIAL (J2060) IV STA (00:35)
[2018-12-30] MEDS ORDERED: MORPHINE 4 MG/ML 1ML VIAL/SYRINGE (J2270) IV ONE (00:45)
[2018-12-30] MEDS ORDERED: BRIL1TAB PO (01:04)
[2018-12-30] MEDS ORDERED: ISOVUE-370 76% 125ML VIAL (Q9967 PER ML) As Ordered ONE (02:09)
--- NOTE | 2018-12-30 02:19 | CR ---
DATE OF CONSULTATION: 12/30/2018 REASON FOR CONSULTATION: Painful left inguinal hernia. HISTORY OF PRESENT ILLNESS: The patient is a 48-year-old man who presented to the emergency department at about 11:00 p.m. on December 29, 2018 with a complaint of severe pain in the left groin. The patient reports that he has had a hernia in the left groin for three years. He indicates that he has generally been able to reduce this by gentle pressure but that he had been unable to reduce it this evening. He complained of severe pain. He was medicated and placed head down on the stretcher and the emergency department physician Dr. Hilliard made an effort to reduce the hernia. At one point he thought he had reduced it but then it seemed to protrude again. I was consulted and a CT scan of the abdomen and pelvis was also ordered. ALLERGIES: The patient reports allergies to ASPIRIN, HYDROCHLOROTHIAZIDE BEE VENOM, CHOCOLATE, PENICILLINS AND NONSTEROIDAL ANTI-INFLAMMATORY DRUGS (NSAIDS). CURRENT MEDICATIONS: As reported to the emergency department include: - amlodipine 5 mg by mouth daily - albuterol inhaler 2 puffs every 4 hours as needed for shortness of breath - pravastatin 80 mg by mouth daily - morphine 15 mg tablets as needed for pain - Protonix 40 mg by mouth twice daily - lisinopril 40 mg by mouth daily - citalopram 20 mg by mouth daily - [facility] 1 tablet every 8 hours as needed for pain - ticagrelor/Brilinta 60 mg by mouth twice daily PAST MEDICAL HISTORY: Medical history is significant for coronary artery disease. He has a history of migraine headaches. He has hypertension and hypercholesterolemia. He apparently has had a myocardial infarction previously. He has a reported history of asthma and chronic obstructive lung disease with sleep apnea. He has some reflux. He has some back pain. PAST SURGICAL HISTORY: Significant for a coronary stent placed in 2016. He has had a previous right inguinal hernia repair in the distant past. He had surgery in November of 2014 for metatarsal fractures on the left. He had an umbilical hernia repaired back in [address] Schmidt. SOCIAL HISTORY: The patient drinks significant alcohol and smokes a pack or a pack and a half of cigarettes per day. FAMILY HISTORY: Family history is noncontributory. REVIEW OF SYSTEMS: Review of systems reveals no history of chest pains. He has had no current cough or sputum production. He denies any melena or hematochezia. He has no dysuria or hematuria. He has had no acute bone or joint issues and denies any history of deep vein thrombosis (DVT) or pulmonary embolus. PHYSICAL EXAMINATION: GENERAL: Physical exam reveals a man sitting up on his emergency room (ER) stretcher, chatting with one of the nurses and appearing fairly comfortable. He has his left hand holding some pressure on the left inguinal area. The patient appears much older than his stated age of 48 years. In speaking with him there is an aroma that appears consistent with alcohol coming from him and he also reeks of tobacco smoke. HEENT: His face is somewhat reddened. Sclerae are anicteric. Mucous membranes are moist. The neck is without apparent mass. HEART: Heart exam shows a regular rhythm. LUNGS: The lungs show scattered expiratory wheezes bilaterally, more so on the left. ABDOMEN: The abdomen is generally flat. He has some scarring at the umbilicus and an old scar low in the right lower quadrant obliquely. He does have some bowel sounds present. The abdomen is soft and without apparent tenderness. GENITOURINARY (): There is some mild tenderness on palpation over the left inguinal area. There may be a small underlying incomplete hernia but this is not particularly prominent. There is definitely no evident hernia on the right. The testicles are bilaterally descended. EXTREMITIES: Extremities are without significant edema and he has intact dorsalis pedis pulses bilaterally. LABORATORIES: Laboratory studies show white count of 11 with a hemoglobin of 14, hematocrit of 42% and a platelet count of 200,000. Differential count shows 50% neutrophils, 38% lymphocytes, 7% monocytes and 4% eosinophils. His chemistry profile shows a sodium of 130, potassium 3.9, chloride 97, CO2 of 21, BUN of 6, creatinine 0.6 and a glucose of 81. He had a PT/INR and partial thromboplastin time (PTT) that were normal. Urinalysis showed a specific gravity of 1.001 with no evidence of urinary tract infection. CT scan ordered and the emergency department is pending at time of this dictation. IMPRESSION: 1. Left groin pain with possible small underlying hernia but no obstructive signs. 2. History of coronary artery disease. 3. Asthma and probable chronic obstructive pulmonary disease (COPD) with ongoing smoking. 4. Probable alcohol abuse. 5. Hypertension. 6. Hyperlipidemia. RECOMMENDATIONS: At this point I would carry through with getting the CT scan. If the patient is found to have a small hernia which contains only fat and has no acute changes to suggest strangulation then I believe he will be better served by an elective approach to repair of his hernia after preoperative optimization. If the CT scan shows incarcerated bowel which I think is unlikely or evidence of an obstruction then a more urgent repair may be needed and surgical admission may be appropriate for preoperative preparation. I will await the results of the CT scan. AXEL
[2018-12-30] MEDS ORDERED: HALOPERIDOL 5 MG/ML VIAL (J1630) IV STA (02:47)
[2018-12-30] MEDS ORDERED: diphenhydrAMINE INJ 50MG/ML VIAL (J1200) IV STA (02:47)
[2018-12-30] MEDS ORDERED: dexameTHASONE 20 MG/5 ML VIAL (J1100) IV ONE (03:00)
--- NOTE | 2018-12-30 04:04 | REPVR ---
EXAM: CT Abdomen and Pelvis With Contrast EXAM DATE/TIME: 12/30/2018 2:29 AM CLINICAL HISTORY: 48 years old, male; Pain; Abdominal pain; Prior surgery; Surgery date: 6+ months; Surgery type: Hernia; Additional info: L inc hernia TECHNIQUE: Imaging protocol: Axial computed tomography images of the abdomen and pelvis with intravenous contrast. Coronal and sagittal reformatted images were created and reviewed. Radiation optimization: All CT scans at this facility use at least one of these dose optimization techniques: automated exposure control; mA and/or kV adjustment per patient size (includes targeted exams where dose is matched to clinical indication); or iterative reconstruction. Contrast material: iso 370 Contrast volume: 100 ml Contrast route: iv COMPARISON: CT ABD/PEL W/IV ORAL CONTRAS 07/04/2017 4:05 AM FINDINGS: Lower thorax: Moderate hiatal hernia. Minimal fibro-atelectatic change in the right lower lobe adjacent to the hiatal hernia. ABDOMEN: Liver: There is fatty infiltration of the liver. Gallbladder and bile ducts: Normal. No calcified stones. No ductal dilation. Pancreas: Normal. No ductal dilation. Spleen: Normal. No splenomegaly. Adrenals: Normal. No mass. Kidneys and ureters: Normal. No hydronephrosis. Stomach and bowel: Normal. No obstruction. No mucosal thickening. Appendix: A normal appendix is seen. PELVIS: Bladder: There is mild urinary bladder wall thickening. Reproductive: Unremarkable as visualized. ABDOMEN and PELVIS: Intraperitoneal space: Segment of small bowel in the left lateral abdomen which demonstrates induration of the supplying mesentery. The segment is contracted with suggestion of edematous wall thickening which may reflect enteritis which may be ischemic. There is an opacified arterial structure which becomes unopacified on series 201, images #[id number]. Bones/joints: No acute fracture. No dislocation. Soft tissues: Small fat filled umbilical hernia. Left inguinal hernia containing a portion of sigmoid colon without obstruction or strangulation. Vasculature: There is mild calcification of the abdominal aorta with extension into the iliac arteries. There is slight ectasia of the infrarenal aorta measuring 2.5 cm. Lymph nodes: Normal. No enlarged lymph nodes. IMPRESSION: 1. Left inguinal hernia containing a segment of sigmoid colon which is new since 07/04/2017. 2. Segment of small bowel wall thickening in the left lateral abdomen with induration of the supplying mesentery consistent with enteritis. There is question of diminished arterial opacification extending into the area which may reflect ischemic enteritis. 3. Moderate hiatal hernia with minimal adjacent fibro-atelectatic change in the right lower lobe. 4. Fatty infiltration of the liver. 5. Mild urinary bladder wall thickening which is similar to the prior study. Electronically signed by: Kirk Cifunetes On 12/30/2018 04:04:13 AM
[2018-12-30] MEDS ORDERED: PRAV80TA2 PO (04:35)
[2018-12-30] MEDS ORDERED: VENTAER INH (04:35)
[2018-12-30] MEDS ORDERED: AMLO5TAB6 PO (04:35)
[2018-12-30] MEDS: LR 1,000 ML IV SCH ×2 (04:57→16:26)
[2018-12-30] MEDS ORDERED: PERCOCET 5MG/325MG TAB PO PRN (05:00)
[2018-12-30] MEDS ORDERED: METOCLOPRAMIDE INJ 10MG/2ML VIAL (J2765) IV PRN (05:00)
[2018-12-30] MEDS ORDERED: ACETAMINOPHEN TAB 650MG DOSE (2X325MG) PO PRN (05:00)
[2018-12-30] MEDS: MORPHINE 4 MG/ML 1ML VIAL/SYRINGE (J2270) IV PRN ×5 (07:21→20:45)
[2018-12-30] MEDS: IPRATROPIUM 0.5MG/ALBUTEROL 2.5MG INH SOL UD 3ML (DUONEB)(J7620) NEB SCH ×3 (08:07→20:00)
[2018-12-30] MEDS: MORPHINE 15 MG SA TAB PO SCH ×2 (08:41→22:12)
[2018-12-30] MEDS: LISINOPRIL 40 MG TAB PO SCH (08:41)
[2018-12-30] MEDS: PRAVASTATIN 20 MG TAB PO SCH (08:42)
[2018-12-30] MEDS: amLODIPine 5 MG TAB PO SCH (08:42)
[2018-12-30] MEDS: CitaloPRAM (CeleXA) 20 MG TAB PO SCH (08:42)
[2018-12-30] MEDS: PANTOPRAZOLE 40MG TAB (PROTONIX) PO SCH ×2 (08:43→20:43)
[2018-12-30] MEDS ORDERED: OXAZEPAM 15 MG CAP PO SCH ×2 (12:00→15:00)
[2018-12-30] MEDS ORDERED: OXAZEPAM 10 MG CAP PO PRN ×2 (12:45→15:00)
[2018-12-30] MEDS ORDERED: NICOTINE POLACRILEX 2 MG GUM PO PRN (12:45)
[2018-12-30 12:50] VITALS: BP 131/69
[2018-12-30] MEDS: SENOKOT S TAB PO SCH ×2 (13:14→20:35)
[2018-12-30] MEDS: NICOTINE 21MG/24HR 1 EA TRANSDERMAL TD SCH (13:14)
[2018-12-30] MEDS: THIAMINE 100 MG TAB PO SCH (13:15)
[2018-12-30] MEDS: HEPARIN SOD (PORCINE) 5000 UNITS/ML VIAL SQ SCH ×2 (13:15→22:11)
[2018-12-30] MEDS: FOLIC ACID 1 MG TAB PO SCH (13:15)
[2018-12-30] MEDS: MULTIVITAMINS/MINERALS THERAP 1 TAB PO SCH (13:15)
[2018-12-30] MEDS ORDERED: NS 1,000 ML IV ONE (15:00)
[2018-12-30] MEDS ORDERED: IPRATROPIUM 0.5MG/ALBUTEROL 2.5MG INH SOL UD 3ML (DUONEB)(J7620) NEB PRN (15:00)
[2018-12-30] MEDS ORDERED: LORazepam 2 MG/ML VIAL (J2060) IV PRN (15:15)
--- NOTE | 2018-12-30 15:43 | CR ---
DATE OF CONSULTATION: 12/30/2018 CONSULTATION REPORT FOR: Dr. Gary Jacobson REASON FOR CONSULTATION: Preoperative optimization. PRIMARY CARE PROVIDER: Senia Kline NP ENERGY SYSTEMS ENGINEER: Dr. English CHIEF COMPLAINT: Abdominal pain. HISTORY OF PRESENT ILLNESS: This is a 48-year-old male patient with underlying medical history of hypertension, dyslipidemia, chronic obstructive pulmonary disease (COPD), coronary artery disease with bare metal stent to proximal circumflex in 2014, heavy smoker, heavy drinker with history of right inguinal hernia repair, abdominal hernia repair who presented with left-sided groin pain with incarcerated left inguinal hernia. The patient reported vomiting times one yesterday, nonbloody, nonbilious. Currently does not report any nausea. Report sharp pain that is constant, worse with movement, 7/10. One bowel movement yesterday. Overnight attempt was made to reduce the patient's hernia with much difficulty. Surgery, Dr. Jacobson, has been requested to admit the patient for possible hernia repair. The patient reported a history of alcohol withdrawal. Reported smoking one pack to one and half packs of cigarettes per day for the past 40 plus years. Recently, the patient is in the process of getting neck surgery done for radiculopathy. Preoperative optimization was done by Dr. Willingham, the patient's offset plate maker. The patient had a nuclear stress test that was done in September 2018 showing ejection fraction of 60% with no perfusion abnormalities as well as an echocardiogram done in September 2018 as well with mild valvular disease. Case discussed with Dr. Cedeño who believes the patient has no current contraindication for surgery at this time from a cardiology perspective. The patient at baseline is able to ambulate with a cane through [address] with mild pain from the patient's radiculopathy. ALLERGIES: ASPIRIN, BEE VENOM, CHOCOLATE, HYDROCHLOROTHIAZIDE, NONSTEROIDAL ANTIINFLAMMATORY DRUGS (NSAIDS) and PENICILLIN. PAST MEDICAL HISTORY: 1. Hypertension. 2. Dyslipidemia. 3. Chronic obstructive pulmonary disease (COPD). 4. Coronary artery disease with bare metal stent to proximal circumflex in 2014. 5. Heavy smoker. 6. Heavy drinker. PAST SURGICAL HISTORY: 1. Left foot fracture. 2. Cardiac stent, bare metal in 2014. 3. Umbilical hernia repair. 4. Right hernia repair. FAMILY MEDICAL HISTORY: Noncontributory. Family history of heavy smoking. SOCIAL HISTORY: The patient smokes heavily, baseline ambulating with a cane, smokes one to one and a half packs per day for 40 plus years. Heavy drinker, about eight beers per day. No illicit drug use. No recent travel. REVIEW OF SYSTEMS: Reported nausea, vomiting times one, and also sharp left-sided inguinal pain. All other review of systems is negative. HOME MEDICATIONS: - [place] 10/325 mg by mouth every eight hours as needed - Ventolin inhaler every four hours as needed - Norvasc 5 mg by mouth daily - citalopram 20 mg by mouth daily - lisinopril 40 mg by mouth daily - morphine extended release 15 mg by mouth twice a day - Protonix 40 mg by mouth twice a day - pravastatin 80 mg by mouth daily - Brilinta 60 mg by mouth daily PHYSICAL EXAMINATION: VITAL SIGNS: Temperature 99.2, pulse 101, respiratory rate 18, blood pressure 131/68. GENERAL: Patient alert, comfortable, in no acute distress. HEENT: Normocephalic, atraumatic. PULMONARY: Bilaterally clear. CARDIAC: Regular. Mild tachycardia. No murmurs detected. ABDOMEN: Left lower quadrant inguinal hernia, painful to palpation. No rebound. No guarding. Positive bowel sounds. EXTREMITIES: No clubbing, cyanosis, or edema. LABORATORY DATA: WBC 10.7, hemoglobin and hematocrit 14.4/42, platelets 200. Chemistry: Sodium 130, potassium 3.9, chloride 97, bicarbonate 21, BUN 6, creatinine 0.6, EKG: Sinus tachycardia at 103 with right bundle branch block. No ST segment changes. ASSESSMENT AND PLAN: This is a 48-year-old patient with underlying medical history of hypertension, dyslipidemia, chronic obstructive pulmonary disease (COPD), coronary artery disease with a bare metal stent to proximal circumflex in 2014 with right-sided inguinal hernia repair, abdominal hernia repair, heavy smoker, heavy drinker, admitted with incarcerated left inguinal hernia. 1. Incarcerated left inguinal hernia, status post reduction. IV fluids. The patient admitted under general surgery. Clear liquid diet for now. The patient making bowel movement, passing gas with significant pain. Pain regimen, perioperative management as per general surgery. Bowel regimen has been prescribed. The patient's baseline metabolic equivalent (METs) greater than 4, able to walk through [address] with a cane with slight dyspnea. Recently, the patient has been cleared by cardiology, Dr. English, for neck surgery. Case discussed with Dr. Cedeño. The patient had a nuclear stress test done in September 2018 with no perfusion defect as well as echocardiogram done in September of 2018 with mild valvular disease. As per Dr. Cedeño, the patient has no cardiological contraindications. Furthermore, the patient has a bare metal stent that was placed in 2014, proximal circumflex. Therefore, the patient's antiplatelet agent can be held at this time. The patient is intermediate risk for intermediate risk procedure. Currently, he is optimized for surgery. Further management as per general surgery. We will monitor the patient closely. IV fluid hydration recommended. 2. Hypertension. Monitor blood pressure. Continue Norvasc, lisinopril. 3. Dyslipidemia. Continue statin. 4. Coronary artery disease. Holding Brilinta. Case discussed with Dr. Cedeño. Continue statin, lisinopril, Norvasc. Recently, in September 2018, the patient had a nuclear stress test with no perfusion defect as well as an echocardiogram showing only mild valvular disease. The patient currently is optimized for surgery. Recommend restarting antiplatelet agent after surgery. The patient has a bare metal stent done in 2014. We will monitor the patient closely. 5. COPD. The patient continues to smoke. Counseling provided. Monitor oxygen saturation. Oxygen supplementation with a goal oxygen saturation of 89% to 92%. Advair and nebulizer treatment as ordered. We will monitor the patient closely. 6. Depression. Continue current medication. 7. Poorly compliant, complicating care. 8. Heavy alcohol use. Counseling provided. Monitor for withdrawal. Thiamine, folate, multivitamin, Serax standing and as needed. The patient does have history of questionable withdrawal as outpatient. The patient reported feeling anxious and irritable if not drinking for two days. 9. Heavy smoker. Counseling provided, nicotine patch and nicotine gum as needed. 10. Deep vein thrombosis (DVT) prophylaxis. Heparin subcutaneous. DISPOSITION: As per general surgery. The patient currently is optimized for surgery. Diet as per general surgery.
[2018-12-30 16:08] VITALS: BP 133/94
[2018-12-30] MEDS: chlordiazePOXIDE 25 MG CAP PO SCH ×2 (16:25→20:43)
[2018-12-30] MEDS: LORazepam 2 MG/ML VIAL (J2060) IV PRN (16:26)
[2018-12-30 17:38] VITALS: BP 114/72
[2018-12-30 18:00] VITALS: BP 114/72
[2018-12-30] MEDS: ONDANSETRON 4MG/2ML VIAL (J2405) IV PRN (20:43)
--- NOTE | 2018-12-30 21:14 | ECGEPIP ---
Stationary ECG Study 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
[2018-12-30 22:00] VITALS: BP 131/69
[2018-12-30 22:06] VITALS: BP 113/70
--- NOTE | 2018-12-30 22:26 | IPN ---
DATE: 12/30/2018 HISTORY: The patient is a 48-year-old man who presented to the emergency department late on 12/29/2018 with complaints of a painful bulge in the left inguinal area. He has a roughly 3-year history of a left inguinal hernia. The emergency room (ER) physician made significant efforts to reduce the hernia. A follow-up CT scan showed that there was sigmoid colon extending down into his complete left inguinal hernia, though there was no evidence of vascular impairment or particular edema. Because of his multiple medical issues, I elected to admit him to the hospital to expedite his preoperative evaluation to proceed with surgery for his hernia during this hospital stay. A consultation was requested from Dr. Cantu of the hospitalist service. Vital signs: Show that the patient has been afebrile since admission. His pulse has generally been in the 90s to low 100. He apparently started feeling somewhat jittery earlier today and was started on some protocol to avoid alcohol withdrawal. His blood pressure has been good. Intake and output. The patient has been tolerating liquids well. He has an acceptable urine output. PHYSICAL EXAMINATION: The patient is alert and appears fairly comfortable at present. Heart exam shows a regular rhythm in the low 100s. The abdomen is nondistended. His hernia appears to be protruding slightly more today than it was when I saw him very early this morning, though the hernia itself is not tender at this time. IMPRESSION: The patient appears stable for surgery today. He presented with what apparently amounts to a transient incarceration of his hernia and this was successfully reduced in the emergency department. His hernia does contain his sigmoid colon, and I believe he is at high risk for re-incarceration or even strangulation. We have therefore started the preoperative evaluation, and Dr. Cantu has been consulted to see the patient. He has already reported back that the patient was seen fairly recently by his medication administration professional with a nuclear stress test done in September of 2018, as well as an echocardiogram. He apparently has no cardiac contraindications to surgery. He does have a history of heavy alcohol use, and the patient was provided with the medications to try to prevent serious alcohol withdrawal problems. I have been informed that we can proceed with surgery for his hernia as necessary. PLAN: The patient will undergo a left inguinal hernia as an open approach on 12/31/2018. He was counseled and desires to proceed. AXEL
[2018-12-30] MEDS: ADVAIR HFA 230/21MCG INHALER INH SCH (22:42)
[2018-12-31] VITALS (13 sets, daily range): BP systolic 113–138; BP diastolic 52–75
[2018-12-31] MEDS: chlordiazePOXIDE 25 MG CAP PO SCH ×5 (00:03→18:35)
[2018-12-31] MEDS: MORPHINE 4 MG/ML 1ML VIAL/SYRINGE (J2270) IV PRN ×2 (00:04→20:54)
[2018-12-31] MEDS: IPRATROPIUM 0.5MG/ALBUTEROL 2.5MG INH SOL UD 3ML (DUONEB)(J7620) NEB SCH ×4 (00:37→20:00)
[2018-12-31] MEDS: HEPARIN SOD (PORCINE) 5000 UNITS/ML VIAL SQ SCH ×3 (05:30→20:53)
[2018-12-31] MEDS: LR 1,000 ML IV SCH (05:32)
[2018-12-31 06:34] LABS: HEMATOCRIT 39.5 % (42.0-52.0); MEAN CORPUSCULAR HGB CONC 32.9 g/dl (32.0-36.5); PLATELET COUNT, AUTOMATED 179 10^3/uL (150-450); RED BLOOD COUNT 4.49 10^6/uL (4.30-6.10)
[2018-12-31 07:01] LABS: BLOOD UREA NITROGEN 8 MG/DL (7-18); CARBON DIOXIDE LEVEL 26 MEQ/L (21-32); CHLORIDE LEVEL 108 MEQ/L (98-107); CREATININE FOR GFR 0.55 MG/DL (0.70-1.30); GLOMERULAR FILTRATION RATE > 60.0 (>56); GLUCOSE, FASTING 111 MG/DL (70-100); MAGNESIUM LEVEL 2.2 MG/DL (1.8-2.4); POTASSIUM SERUM 3.9 MEQ/L (3.5-5.1); SODIUM LEVEL 141 MEQ/L (136-145)
[2018-12-31] MEDS: ADVAIR HFA 230/21MCG INHALER INH SCH ×2 (07:48→21:00)
[2018-12-31] MEDS: NICOTINE 21MG/24HR 1 EA TRANSDERMAL TD SCH (08:45)
[2018-12-31] MEDS: PANTOPRAZOLE 40MG TAB (PROTONIX) PO SCH ×2 (08:46→20:52)
[2018-12-31] MEDS: CitaloPRAM (CeleXA) 20 MG TAB PO SCH (08:46)
[2018-12-31] MEDS: FOLIC ACID 1 MG TAB PO SCH (08:46)
[2018-12-31] MEDS: THIAMINE 100 MG TAB PO SCH (08:46)
[2018-12-31] MEDS: SENOKOT S TAB PO SCH ×2 (08:47→20:52)
[2018-12-31] MEDS: MORPHINE 15 MG SA TAB PO SCH ×2 (08:49→22:26)
[2018-12-31] MEDS: MULTIVITAMINS/MINERALS THERAP 1 TAB PO SCH (08:50)
[2018-12-31] MEDS: PRAVASTATIN 20 MG TAB PO SCH (08:50)
[2018-12-31] MEDS: amLODIPine 5 MG TAB PO SCH (08:52)
[2018-12-31] MEDS: LISINOPRIL 40 MG TAB PO SCH (08:52)
[2018-12-31] MEDS ORDERED: BUPIVACAINE HCL 0.25% 30 ML VIAL As Ordered ONE (10:59)
[2018-12-31] MEDS ORDERED: MIDAZOLAM INJ 2 MG/2 ML VIAL (J2250) As Ordered ONE ×2 (11:52→12:53)
[2018-12-31] MEDS ORDERED: dexameTHASONE 4 MG/ML 1ML VIAL (J1100) As Ordered ONE (11:52)
[2018-12-31] MEDS ORDERED: PROPOFOL 200 MG/20 ML VIAL As Ordered ONE ×2 (11:52→12:53)
[2018-12-31] MEDS ORDERED: fentaNYL 250 MCG/5 ML INJECTION (J3010) As Ordered ONE (11:52)
[2018-12-31] MEDS ORDERED: LIDOCAINE 2% INJ 100 MG/5 ML SDV (FOR ANES.) As Ordered ONE (11:52)
[2018-12-31] MEDS ORDERED: ROCURONIUM BROMIDE 50 MG/5 ML VIAL As Ordered ONE (11:52)
[2018-12-31] MEDS ORDERED: ONDANSETRON 4MG/2ML VIAL (J2405) As Ordered ONE ×2 (11:52→16:18)
[2018-12-31] MEDS ORDERED: PHENYLephrine HCL 500 MCG/5 ML (100MCG/ML) SYRINGE (J2370) As Ordered ONE (14:41)
[2018-12-31] MEDS ORDERED: BUPIVACAINE LIPOSOME/PF 1.3% 20ML VIAL (13.3MG/ML)(EXPAREL)(C9290 PER1MG) As Ordered ONE (14:51)
[2018-12-31] MEDS ORDERED: ePHEDrine SULFATE 25 MG/5 ML(5MG/ML) SYRINGE As Ordered ONE (15:05)
[2018-12-31] MEDS ORDERED: HYDROmorphone HCL 2 MG/ML 1ML VIAL (J1170) As Ordered ONE (15:05)
[2018-12-31] MEDS ORDERED: SUGAMMADEX SODIUM 500 MG/5 ML VIAL (BRIDION) As Ordered ONE (16:19)
[2018-12-31] MEDS ORDERED: LR 1,000 ML IV SCH (17:00)
[2018-12-31] MEDS ORDERED: ONDANSETRON 4MG/2ML VIAL (J2405) IV PRN (17:00)
[2018-12-31] MEDS ORDERED: fentaNYL 100 MCG/2 ML INJECTION (J3010) IV PRN (17:00)
[2018-12-31] MEDS ORDERED: LEVALBUTEROL 1.25 MG/0.5 ML CONCENTRATE NEB As Ordered ONE (17:25)
[2018-12-31] MEDS ORDERED: LEVALBUTEROL 1.25 MG/0.5 ML CONCENTRATE NEB INH ONE (18:00)
[2018-12-31] MEDS: ONDANSETRON 4MG/2ML VIAL (J2405) IV PRN (20:53)
--- NOTE | 2018-12-31 22:25 | IPNPDOC ---
Text Note Date of Service The patient was seen on 12/31/18. NOTE Patient see in PACU, mildly lethargic due to anesthesia. waking up. reported left groin pain from surgery. denied sob or chest pain. GENERAL: Patient alert, comfortable, in no acute distress. HEENT: Normocephalic, atraumatic. PULMONARY: Bilaterally clear. CARDIAC: Regular. No murmurs detected. ABDOMEN: Left lower quadrant wound c/d/i, painful to palpation. No rebound. hypoactive bowel sound No guarding. Positive bowel sounds. EXTREMITIES: No clubbing, cyanosis, or edema. ASSESSMENT AND PLAN: This is a 48-year-old patient with underlying medical history of hypertension, dyslipidemia, chronic obstructive pulmonary disease (COPD), coronary artery disease with a bare metal stent to proximal circumflex in 2014 with right-sided inguinal hernia repair, abdominal hernia repair, heavy smoker, heavy drinker, admitted with incarcerated left inguinal hernia. 1. Incarcerated left inguinal hernia, status post reduction. IV fluids. The patient admitted under general surgery. s/p surgery, diet, pain medication, bowel reg, activity as per surgery. 2. Hypertension. Monitor blood pressure. Continue Norvasc, lisinopril. 3. Dyslipidemia. Continue statin. 4. Coronary artery disease. Holding Brilinta. Case discussed with Dr. Cedeño. Continue statin, lisinopril, Norvasc. Recently, in September 2018, the patient had a nuclear stress test with no perfusion defect as well as an echocardiogram showing only mild valvular disease. The patient currently is optimized for surgery. Recommend restarting antiplatelet agent when surgery comfortable. The patient has a bare metal stent done in 2014. We will monitor the patient closely. 5. COPD. The patient continues to smoke. Counseling provided. Monitor oxygen saturation. Oxygen supplementation with a goal oxygen saturation of 89% to 92%. Advair and nebulizer treatment as ordered. We will monitor the patient closely. 6. Depression. Continue current medication. 7. Poorly compliant, complicating care. 8. Heavy alcohol use. with withdrawal, Counseling provided. Monitor for withdrawal. Thiamine, folate, multivitamin, libirum protocol. ativan as needed. 9. Heavy smoker. Counseling provided, nicotine patch and nicotine gum as needed. 10. Deep vein thrombosis (DVT) prophylaxis. Heparin subcutaneous. DISPOSITION: As per general surgery. Diet as per general surgery. clinical improvement VS,Jessica, I+O VS, Fishbone, I+O Laboratory Tests 12/31/18 05:49 Red Blood Count 4.49, Mean Corpuscular Volume 88.0, Mean Corpuscular Hemoglobin 29.0, Mean Corpuscular Hemoglobin Concent 32.9, Red Cell Distribution Width 14.6 H, Calcium Level 8.0 L Vital Signs Date Time Temp Pulse Resp B/P (MAP) Pulse Ox O2 Delivery O2 Flow Rate FiO2 12/31/18 20:54 14 12/31/18 18:15 91 126/71 12/31/18 18:15 2.0 12/31/18 18:00 97.7 93 12/30/18 22:00 Room Air 12/30/18 20:45 93 I&O- Last 24 Hours up to 6 AM 12/31/18 06:00 Intake Total 3140 ml Output Total 1100 ml Balance 2040 ml SHARRI CARTWRIGHT MD Dec 31, 2018 22:25
[2019-01-01] VITALS (13 sets, daily range): BP systolic 104–148; BP diastolic 68–89
[2019-01-01] MEDS: chlordiazePOXIDE 25 MG CAP PO SCH ×5 (00:04→23:29)
[2019-01-01] MEDS: MORPHINE 4 MG/ML 1ML VIAL/SYRINGE (J2270) IV PRN ×9 (00:05→23:27)
[2019-01-01] MEDS: IPRATROPIUM 0.5MG/ALBUTEROL 2.5MG INH SOL UD 3ML (DUONEB)(J7620) NEB SCH ×4 (02:00→20:00)
[2019-01-01] MEDS: LORazepam 2 MG/ML VIAL (J2060) IV PRN ×2 (02:21→14:25)
[2019-01-01] MEDS: HEPARIN SOD (PORCINE) 5000 UNITS/ML VIAL SQ SCH ×4 (06:36→21:20)
[2019-01-01 06:41] LABS: HEMOGLOBIN 12.1 g/dl (13.5-17.5); MEAN CORPUSCULAR HEMOGLOBIN 29.2 pg (27.0-33.0); MEAN CORPUSCULAR HGB CONC 32.7 g/dl (32.0-36.5); MEAN CORPUSCULAR VOLUME 89.2 fl (80.0-96.0); PLATELET COUNT, AUTOMATED 167 10^3/uL (150-450); RED BLOOD COUNT 4.15 10^6/uL (4.30-6.10); WHITE BLOOD COUNT 9.4 10^3/uL (4.0-10.0)
[2019-01-01 07:06] LABS: BLOOD UREA NITROGEN 8 MG/DL (7-18); CALCIUM LEVEL 8.1 MG/DL (8.5-10.1); CARBON DIOXIDE LEVEL 29 MEQ/L (21-32); CHLORIDE LEVEL 103 MEQ/L (98-107); CREATININE FOR GFR 0.84 MG/DL (0.70-1.30); GLOMERULAR FILTRATION RATE > 60.0 (>56); GLUCOSE, FASTING 116 MG/DL (70-100); POTASSIUM SERUM 3.5 MEQ/L (3.5-5.1); SODIUM LEVEL 138 MEQ/L (136-145)
[2019-01-01] MEDS: ADVAIR HFA 230/21MCG INHALER INH SCH ×2 (08:20→21:14)
[2019-01-01] MEDS: NICOTINE 21MG/24HR 1 EA TRANSDERMAL TD SCH (09:01)
[2019-01-01] MEDS: FOLIC ACID 1 MG TAB PO SCH (09:01)
[2019-01-01] MEDS: CitaloPRAM (CeleXA) 20 MG TAB PO SCH (09:02)
[2019-01-01] MEDS: THIAMINE 100 MG TAB PO SCH (09:02)
[2019-01-01] MEDS: MULTIVITAMINS/MINERALS THERAP 1 TAB PO SCH (09:02)
[2019-01-01] MEDS: PRAVASTATIN 20 MG TAB PO SCH (09:02)
[2019-01-01] MEDS: PANTOPRAZOLE 40MG TAB (PROTONIX) PO SCH ×2 (09:02→20:38)
[2019-01-01] MEDS: SENOKOT S TAB PO SCH ×2 (09:02→20:38)
[2019-01-01] MEDS: LISINOPRIL 40 MG TAB PO SCH (09:03)
[2019-01-01] MEDS: amLODIPine 5 MG TAB PO SCH (09:05)
[2019-01-01] MEDS: MORPHINE 15 MG SA TAB PO SCH ×2 (10:31→20:37)
[2019-01-01 11:00] LABS: CPK CREATINE PHOSPHOKINASE 262 U/L (39-308); MB/CK RELATIVE INDEX 0.92 (< OR =4); TROPONIN I < 0.02 NG/ML (< 0.10)
[2019-01-01] MEDS ORDERED: chlordiazePOXIDE 25 MG CAP PO SCH ×2 (15:00→16:00)
[2019-01-01] MEDS: ANEXSIA, NORCO 7.5MG/325MG TABLET(HYDROCODONE/APAP) PO PRN ×2 (16:41→21:19)
[2019-01-01 16:42] LABS: CPK CREATINE PHOSPHOKINASE 265 U/L (39-308); MB/CK RELATIVE INDEX 0.83 (< OR =4); TROPONIN I < 0.02 NG/ML (< 0.10)
--- NOTE | 2019-01-01 20:54 | IPNPDOC ---
Text Note Date of Service The patient was seen on 01/01/19. NOTE confused overnight. fell with no injury. ambulating. reported left groin pain. tolerating PO, making BM. 1x chest discomfort lasting 5 min with spontaneous resolution, EKG no change, cardiac enzyme neg x2, no sob. GENERAL: Patient alert, comfortable, in no acute distress. HEENT: Normocephalic, atraumatic. PULMONARY: Bilaterally coarse CARDIAC: Regular. No murmurs detected. ABDOMEN: Left lower quadrant wound c/d/i, painful to palpation. No rebound. hypoactive bowel sound No guarding. Positive bowel sounds. EXTREMITIES: No clubbing, cyanosis, or edema. ASSESSMENT AND PLAN: This is a 48-year-old patient with underlying medical history of hypertension, dyslipidemia, chronic obstructive pulmonary disease (COPD), coronary artery disease with a bare metal stent to proximal circumflex in 2014 with right-sided inguinal hernia repair, abdominal hernia repair, heavy smoker, heavy drinker, admitted with incarcerated left inguinal hernia. 1. Incarcerated left inguinal hernia, status post reduction. s/p surgery, diet, pain medication, bowel reg, activity as per surgery. 2. Hypertension. Monitor blood pressure. Continue Norvasc, lisinopril. 3. Dyslipidemia. Continue statin. 4. Coronary artery disease. Holding Brilinta. Case discussed with Dr. Cedeño. Continue statin, lisinopril, Norvasc. Recently, in September 2018, the patient had a nuclear stress test with no perfusion defect as well as an echocardiogram showing only mild valvular disease. The patient currently is optimized for surgery. Recommend restarting antiplatelet agent when surgery comfortable. The patient has a bare metal stent done in 2014. We will monitor the patient closely. 5. COPD. The patient continues to smoke. Counseling provided. Monitor oxygen saturation. Oxygen supplementation with a goal oxygen saturation of 89% to 92%. Advair and nebulizer treatment as ordered. We will monitor the patient closely. 6. Depression. Continue current medication. 7. Poorly compliant, complicating care. 8. Heavy alcohol use. with withdrawal, Counseling provided. Monitor for withdrawal. Thiamine, folate, multivitamin, libirum protocol. ativan as needed. 9. Heavy smoker. Counseling provided, nicotine patch and nicotine gum as needed. 10. Deep vein thrombosis (DVT) prophylaxis. Heparin subcutaneous. DISPOSITION: As per general surgery. Diet as per general surgery. clinical imp rovement, PT VS,Fishbone, I+O VS, Fishbone, I+O Laboratory Tests 01/01/19 06:28 Red Blood Count 4.15 L, Mean Corpuscular Volume 89.2, Mean Corpuscular Hem oglobin 29.2, Mean Corpuscular Hemoglobin Concent 32.7, Red Cell Distribution Width 14.8 H, Calcium Level 8.1 L Vital Signs Date Time Temp Pulse Resp B/P (MAP) Pulse Ox O2 Delivery O2 Flow Rate FiO2 01/01/19 20:39 87 143/88 01/01/19 20:37 20 95 01/01/19 16:00 97.3 01/01/19 10:00 Room Air 12/31/18 18:15 2.0 12/30/18 20:45 93 I&O- Last 24 Hours up to 6 AM 01/01/19 05:59 Intake Total 3500 ml Output Total 1860 ml Balance 1640 ml SHARRI CARTWRIGHT MD Jan 01, 2019 20:54
[2019-01-01] MEDS ORDERED: LORazepam 1 MG TAB PO ONE (21:15)
--- NOTE | 2019-01-01 21:30 | ECGEPIP ---
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
[2019-01-02] VITALS (9 sets, daily range): BP systolic 127–154; BP diastolic 82–95
[2019-01-02] MEDS: MORPHINE 4 MG/ML 1ML VIAL/SYRINGE (J2270) IV PRN ×8 (01:26→22:43)
[2019-01-02] MEDS: IPRATROPIUM 0.5MG/ALBUTEROL 2.5MG INH SOL UD 3ML (DUONEB)(J7620) NEB SCH ×4 (01:50→20:00)
[2019-01-02] MEDS: chlordiazePOXIDE 25 MG CAP PO SCH ×5 (03:30→21:38)
[2019-01-02 06:18] LABS: HEMATOCRIT 38.3 % (42.0-52.0); HEMOGLOBIN 12.4 g/dl (13.5-17.5); MEAN CORPUSCULAR HEMOGLOBIN 28.9 pg (27.0-33.0); MEAN CORPUSCULAR HGB CONC 32.4 g/dl (32.0-36.5); MEAN CORPUSCULAR VOLUME 89.3 fl (80.0-96.0); PLATELET COUNT, AUTOMATED 171 10^3/uL (150-450); RED BLOOD COUNT 4.29 10^6/uL (4.30-6.10); WHITE BLOOD COUNT 7.9 10^3/uL (4.0-10.0)
[2019-01-02 06:46] LABS: BLOOD UREA NITROGEN 5 MG/DL (7-18); CALCIUM LEVEL 7.9 MG/DL (8.5-10.1); CARBON DIOXIDE LEVEL 32 MEQ/L (21-32); CHLORIDE LEVEL 105 MEQ/L (98-107); GLOMERULAR FILTRATION RATE > 60.0 (>56); GLUCOSE, FASTING 99 MG/DL (70-100); MAGNESIUM LEVEL 2.1 MG/DL (1.8-2.4); POTASSIUM SERUM 3.7 MEQ/L (3.5-5.1); SODIUM LEVEL 141 MEQ/L (136-145)
[2019-01-02] MEDS: HEPARIN SOD (PORCINE) 5000 UNITS/ML VIAL SQ SCH ×3 (06:48→21:38)
[2019-01-02] MEDS: ADVAIR HFA 230/21MCG INHALER INH SCH ×2 (07:30→21:00)
[2019-01-02] MEDS: PRAVASTATIN 20 MG TAB PO SCH (08:25)
[2019-01-02] MEDS: amLODIPine 5 MG TAB PO SCH (08:26)
[2019-01-02] MEDS: NICOTINE 21MG/24HR 1 EA TRANSDERMAL TD SCH (08:26)
[2019-01-02] MEDS: CitaloPRAM (CeleXA) 20 MG TAB PO SCH (08:26)
[2019-01-02] MEDS: THIAMINE 100 MG TAB PO SCH (08:26)
[2019-01-02] MEDS: MULTIVITAMINS/MINERALS THERAP 1 TAB PO SCH (08:26)
[2019-01-02] MEDS: FOLIC ACID 1 MG TAB PO SCH (08:27)
[2019-01-02] MEDS: SENOKOT S TAB PO SCH ×2 (08:27→21:38)
[2019-01-02] MEDS: LISINOPRIL 40 MG TAB PO SCH (08:27)
[2019-01-02] MEDS: PANTOPRAZOLE 40MG TAB (PROTONIX) PO SCH ×2 (08:27→21:38)
[2019-01-02] MEDS: MORPHINE 15 MG SA TAB PO SCH ×2 (08:27→21:38)
[2019-01-02] MEDS ORDERED: POTASSIUM CHLORIDE 10 MEQ SR TABLET PO ONE (09:00)
[2019-01-02] MEDS: TICAGRELOR 90 MG TABLET (BRILINTA) PO SCH (09:38)
--- NOTE | 2019-01-02 14:27 | RO ---
DATE OF PROCEDURE: 12/31/2018 PREOPERATIVE DIAGNOSIS: Left inguinal hernia with recent transient incarceration. POSTOPERATIVE DIAGNOSIS: Complete indirect left inguinal hernia. PROCEDURE PERFORMED: Left inguinal herniorrhaphy with ultra Pro mesh. SURGEON: Dr. Gary Jacobson WARP HAND: Moises Vasquez MS III ANESTHESIA: General. INDICATIONS FOR PROCEDURE: The patient is a 48-year-old man who presented to the emergency department with severe pain in the left groin. The patient has a known inguinal hernia which has been present for perhaps 3 years. He reported that there was a large bulge and he could not get this reduced. The emergency department physician attempted to reduce the hernia. A CT scan of the abdomen and pelvis revealed a loop of the sigmoid colon extending down into an inguinal hernia all the way into the scrotum. There was no acute inflammation and no sign of obstruction. However, with his symptoms of severe pain and transient incarceration, he was admitted for preoperative medical evaluation and surgery. He is now for a left inguinal herniorrhaphy. OPERATIVE PROCEDURE: The patient was brought to the operating room and placed on the table in a supine position. He was placed under general endotracheal anesthesia. The patient's lower abdomen was clipped of hair and the abdomen was prepped and draped in a sterile fashion. An approximately 10 cm left lower quadrant oblique skin incision was made over the course of the inguinal canal. The incision was deepened through the subcutaneous tissues using the cautery. The external oblique aponeurosis was identified. This was opened in the direction of its fibers into the external ring. The spermatic cord was dissected free using a combination of sharp and blunt dissection. This was encircled with a Clark drain and elevated gently. There was some obvious edema in the tissues of this area. The spermatic cord was opened and a moderately large indirect inguinal hernia sac was identified. This was dissected free from the other cord structures. The sac was opened. It contained a small amount of fibrofatty tissue and with gentle traction on this the sigmoid colon was delivered into the hernia. The colon was reduced back into the abdomen. The hernia sac was dissected free all the way up into the internal ring. The sac was then twisted and suture ligated at its neck with a #0 Vicryl. The cremaster fibers were dissected off of the cord structures medially and laterally to better define the cord structures and facilitate placement of prosthetic mesh. Several sutures of #0 Ethibond were placed to narrow the internal ring. One of these was placed lateral to the cord and two placed medially. The inguinal floor appeared otherwise to be intact. A 6 x 11 cm piece of ultra Pro mesh was selected for reinforcement of the inguinal floor. This was lot number [id number]. This was trimmed to fit the inguinal floor and split laterally to fit about the spermatic cord. This was placed over the inguinal floor and sutured at the pubic tubercle with a #3-0 Prolene. This was then carried along the lateral border of the mesh as a running suture, suturing this to the shelving edge of the inguinal ligament. The medial portion of the mesh was tacked down to the underlying internal oblique muscle and fascia with interrupted simple sutures of #3-0 Vicryl. The tails of the mesh were overlapped lateral to the spermatic cord and held in place with several simple sutures of #3-0 Prolene. This appeared to give a nice reinforcement of the inguinal floor. The abdominal wall and inguinal floor were infiltrated with approximately 20 mL of a mixture of Exparel with 0.25% Marcaine. The external oblique aponeurosis was closed with a running suture of #0 Vicryl. The superficial fascia was closed with several interrupted simple sutures of #3- 0 chromic. The remaining 15-20 mL of the Exparel mixture were then infiltrated into the subcutaneous tissues along both sides of the incision. The skin edges were then approximated with a running subcuticular #4-0 Vicryl and Steri-Strips. A light dressing was applied. The patient tolerated the procedure well without apparent complication. He was awakened in the operating room, extubated and moved to the recovery room in stable condition. AXEL
[2019-01-02] MEDS ORDERED: chlordiazePOXIDE 25 MG CAP PO SCH (18:00)
--- NOTE | 2019-01-02 20:07 | IPNPDOC ---
Text Note Date of Service The patient was seen on 01/02/19. NOTE reported left groin pain. tolerating PO, making BM. Denied chest pain. reported cough. GENERAL: Patient alert, comfortable, in no acute distress. HEENT: Normocephalic, atraumatic. PULMONARY: Bilaterally coarse CARDIAC: Regular. No murmurs detected. ABDOMEN: Left lower quadrant wound c/d/i, painful to palpation. No rebound. hypoactive bowel sound No guarding. Positive bowel sounds. EXTREMITIES: No clubbing, cyanosis, or edema. ASSESSMENT AND PLAN: This is a 48-year-old patient with underlying medical history of hypertension, dyslipidemia, chronic obstructive pulmonary disease (COPD), coronary artery disease with a bare metal stent to proximal circumflex in 2014 with right-sided inguinal hernia repair, abdominal hernia repair, heavy smoker, heavy drinker, admitted with incarcerated left inguinal hernia. 1. Incarcerated left inguinal hernia, status post reduction. s/p surgery, diet, pain medication, bowel reg, activity as per surgery. 2. Hypertension. Monitor blood pressure. Continue Norvasc, lisinopril. 3. Dyslipidemia. Continue statin. 4. Coronary artery disease. Case discussed with Dr. Cedeño. Continue statin, lisinopril, Norvasc. Recently, in September 2018, the patient had a nuclear stress test with no perfusion defect as well as an echocardiogram showing only mild valvular disease. The patient currently is optimized for surgery. restart Brilinta. The patient has a bare metal stent done in 2014. We will monitor the patient closely. 5. COPD. The patient continues to smoke. Counseling provided. Monitor oxygen saturation. Oxygen supplementation with a goal oxygen saturation of 89% to 92%. Advair and nebulizer treatment as ordered. We will monitor the patient closely. Noc oxy 6. Depression. Continue current medication. 7. Poorly compliant, complicating care. 8. Heavy alcohol use. with withdrawal, Counseling provided. Monitor for withdrawal. Thiamine, folate, multivitamin, libirum protocol. ativan as needed. 9. Heavy smoker. Counseling provided, nicotine patch and nicotine gum as needed. 10. Deep vein thrombosis (DVT) prophylaxis. Heparin subcutaneous. DISPOSITION: As per general surgery. Diet as per general surgery. clinical improvement, PT, f/u Noc ox, VS,Fishbone, I+O VS, Fishbone, I+O Laboratory Tests 01/02/19 05:55 Red Blood Count 4.29 L, Mean Corpuscular Volume 89.3, Mean Corpuscular Hemoglobin 28.9, Mean Corpuscular Hemoglobin Concent 32.4, Red Cell Distribution Width 15.1 H, Calcium Level 7.9 L Vital Signs Date Time Temp Pulse Resp B/P (MAP) Pulse Ox O2 Delivery O2 Flow Rate FiO2 01/02/19 18:00 96.3 87 16 127/95 (106) 95 01/02/19 09:15 Room Air 12/31/18 18:15 2.0 12/30/18 20:45 93 I&O- Last 24 Hours up to 6 AM 01/02/19 06:00 Intake Total 1000 ml Output Total 1400 ml Balance -400 ml SHARRI CARTWRIGHT MD Jan 02, 2019 20:07
[2019-01-02] MEDS: ANEXSIA, NORCO 7.5MG/325MG TABLET(HYDROCODONE/APAP) PO PRN (23:44)
[2019-01-03] VITALS (7 sets, daily range): BP systolic 125–143; BP diastolic 69–86
[2019-01-03] MEDS: MORPHINE 4 MG/ML 1ML VIAL/SYRINGE (J2270) IV PRN ×6 (00:49→13:43)
[2019-01-03] MEDS: IPRATROPIUM 0.5MG/ALBUTEROL 2.5MG INH SOL UD 3ML (DUONEB)(J7620) NEB SCH ×3 (01:32→12:35)
[2019-01-03] MEDS: chlordiazePOXIDE 25 MG CAP PO SCH ×3 (03:09→15:07)
[2019-01-03] MEDS: ANEXSIA, NORCO 7.5MG/325MG TABLET(HYDROCODONE/APAP) PO PRN ×2 (03:43→15:08)
[2019-01-03] MEDS: HEPARIN SOD (PORCINE) 5000 UNITS/ML VIAL SQ SCH ×2 (05:28→13:44)
[2019-01-03 06:01] LABS: HEMATOCRIT 38.4 % (42.0-52.0); HEMOGLOBIN 12.5 g/dl (13.5-17.5); MEAN CORPUSCULAR HEMOGLOBIN 29.2 pg (27.0-33.0); MEAN CORPUSCULAR HGB CONC 32.6 g/dl (32.0-36.5); MEAN CORPUSCULAR VOLUME 89.7 fl (80.0-96.0); PLATELET COUNT, AUTOMATED 173 10^3/uL (150-450); RED BLOOD COUNT 4.28 10^6/uL (4.30-6.10); WHITE BLOOD COUNT 7.9 10^3/uL (4.0-10.0)
[2019-01-03 06:24] LABS: BLOOD UREA NITROGEN 7 MG/DL (7-18); CALCIUM LEVEL 8.7 MG/DL (8.5-10.1); CARBON DIOXIDE LEVEL 30 MEQ/L (21-32); CHLORIDE LEVEL 103 MEQ/L (98-107); CREATININE FOR GFR 0.79 MG/DL (0.70-1.30); GLOMERULAR FILTRATION RATE > 60.0 (>56); GLUCOSE, FASTING 113 MG/DL (70-100); MAGNESIUM LEVEL 2.2 MG/DL (1.8-2.4); POTASSIUM SERUM 3.9 MEQ/L (3.5-5.1); SODIUM LEVEL 138 MEQ/L (136-145)
[2019-01-03] MEDS: ADVAIR HFA 230/21MCG INHALER INH SCH (08:57)
[2019-01-03] MEDS ORDERED: MIRALAX *UNIT DOSE* 17GM PACKET PO SCH (09:00)
[2019-01-03] MEDS: NICOTINE 21MG/24HR 1 EA TRANSDERMAL TD SCH (09:06)
[2019-01-03] MEDS: CitaloPRAM (CeleXA) 20 MG TAB PO SCH (09:07)
[2019-01-03] MEDS: amLODIPine 5 MG TAB PO SCH (09:07)
[2019-01-03] MEDS: PRAVASTATIN 20 MG TAB PO SCH (09:07)
[2019-01-03] MEDS: SENOKOT S TAB PO SCH (09:07)
[2019-01-03] MEDS: PANTOPRAZOLE 40MG TAB (PROTONIX) PO SCH (09:07)
[2019-01-03] MEDS: FOLIC ACID 1 MG TAB PO SCH (09:08)
[2019-01-03] MEDS: LISINOPRIL 40 MG TAB PO SCH (09:08)
[2019-01-03] MEDS: THIAMINE 100 MG TAB PO SCH (09:08)
[2019-01-03] MEDS: MORPHINE 15 MG SA TAB PO SCH (09:08)
[2019-01-03] MEDS: TICAGRELOR 90 MG TABLET (BRILINTA) PO SCH (09:08)
[2019-01-03] MEDS: MULTIVITAMINS/MINERALS THERAP 1 TAB PO SCH (09:08)
[2019-01-03] MEDS ORDERED: LR 1,000 ML IV SCH (12:30)
[2019-01-03] MEDS ORDERED: ISOVUE-370 76% 125ML VIAL (Q9967 PER ML) As Ordered ONE (12:40)
--- NOTE | 2019-01-03 14:24 | REP ---
CT ABDOMEN AND PELVIS WITH IV AND ORAL CONTRAST: HISTORY: Nausea, status post hernia surgery. Comparison study December 30, 2018. CT CONTRAST DOSE: 100 mL of intravenous Isovue 370. CT FINDINGS: Preliminary digital vegetable specker radiographs demonstrate several small bowel air-fluid levels in the anterior abdomen. No evidence of obstruction in the bowel gas pattern. Axial CT images demonstrate a large sliding type hiatal hernia again noted. There is bilateral lower lobe discoid atelectasis in the lung hernandez. This is a new finding. No pleural effusion is seen. There is no evidence of free intraperitoneal air. There is however some soft tissue gas in the midline subcutaneous fat of the anterior abdominal wall just below the umbilicus. There is also evidence of soft tissue induration consistent with recent surgery in the inguinal soft tissues on the left. The previously noted left inguinal hernia has been repaired. No hernia is seen. There is some postoperative induration and a small quantity of gas along the spermatic cord seen on the left side. There is a left-sided hydrocele noted in the left scrotum. Urinary bladder, seminal vesicles and prostate are unchanged. There are prostate calcifications noted. Small and large bowel loops are unremarkable. The previously noted small bowel wall thickening with adjacent fat streaking has resolved. No pancreatic, gallbladder, hepatic or splenic lesion is seen. Kidneys enhance symmetrically and remain morphologically intact. There is minimal ectasia of the infrarenal abdominal aorta, 2.3 cm in AP dimension. Normal appendix is seen. IMPRESSION: Postoperative changes in the left inguinal soft tissues consistent with recent herniorrhaphy. Small to moderate left-sided scrotal hydrocele. A large hiatal hernia. Discoid atelectasis bilaterally in the lower lobes of the lungs. No other acute abnormality. Electronically Signed by Laith Dasilva MD 01/03/2019 02:39 P
[2019-01-03] MEDS ORDERED: PEG1POW PO (18:15)
[2019-01-03] MEDS ORDERED: VITMTA PO (18:15)
[2019-01-03] MEDS ORDERED: FOLI1TAB11 PO (18:15)
[2019-01-03] MEDS ORDERED: SENN1TAB41 PO (18:15)
[2019-01-03] MEDS ORDERED: THIA100TA PO (18:15)
[2019-01-03] MEDS ORDERED: NORC1TAB5 PO (18:51)
[2019-01-03] MEDS ORDERED: MORP-38 PO (18:51)
[2019-01-03] MEDS ORDERED: SENOKOT S TAB PO SCH (21:00)
--- NOTE | 2019-01-03 21:51 | DSES ---
DATE OF ADMISSION: 12/30/2018 DATE OF DISCHARGE: 01/03/2019 GENERAL SURGEON: Dr. Estes PRIMARY CARE PROVIDER: Senia Kline JOURNAL CLERK: Dr. English, covered by Dr. Cedeño FINAL DIAGNOSES: 1. Incarcerated left inguinal hernia. 2. Hypertension. 3. Dyslipidemia. 4. Coronary arterial disease. 5. Chronic obstructive pulmonary disease (COPD). 6. Smoking. 7. Alcohol abuse with alcohol withdrawal. 8. Depression. 9. Poor compliance. 10. Chronic back pain. HISTORY OF PRESENT ILLNESS: This is a 48-year-old male patient with underlying medical history of hypertension, dyslipidemia, COPD, coronary arterial disease with bare metal stent to the proximal circumflex in 2012, heavy smoker, heavy drinker with history of right inguinal hernia repair, abdominal hernia repair, presented to the emergency department with left sided groin pain and diagnosed with incarcerated left inguinal hernia. Reported vomiting one time the day before admission and was nonbloody, nonbilious. Hernia was reduced in the emergency room. Hospitalist was consulted for preoperative optimization. The patient reported 7 out of 10 pain. Initially did not report any symptoms of alcohol withdrawal. Smoking cessation counseling was provided. Case was discussed with Dr. Cedeño, who is covering for Dr. English, the patient's creosoting engineer. Early in September 2018, the patient has a nuclear stress test showing ejection fraction of 60% with no perfusion abnormalities. Furthermore, the patient had an echo at the same time in September 2018 showing no valvular disease. Case discussed with the creosoting engineer. The patient has no contraindication for surgery from a cardiac perspective. Subsequently, the patient underwent surgery. HOSPITAL COURSE: The patient underwent surgery by Dr. Jacobson. Postoperative care was complicated with pain given the patient's low tolerance for pain and use of pain medication as an outpatient, as well as alcohol withdrawal. The patient was treated for withdrawal. Tolerating diet. Making bowel movements. Repeat CT scan done given patient reported significant pain still and showing normal findings. Subsequently, attempt was made to taper the patient off of IV morphine. Physical therapy (PT) saw the patient. The patient has cleared physical therapy. The patient currently stated that he would like to go home given that he is no longer on IV medications. The patient has been ambulating with a walker, tolerating oral. The patient's anticholinergic agent was restarted. Patient is ready for discharge for further care as an outpatient. Smoking cessation and alcohol cessation provided. Thiamine, folate, multivitamin provided, as well as nicotine patch and nicotine gum. VITAL SIGNS: Temperature 97.2, pulse 78, respirations 18, blood pressure 143/80, pulse oximetry 95% on room air. LABORATORY DATA: WBC 7.9, hemoglobin and hematocrit 12.5/38.4, platelets 173. Chemistry: Sodium 138, potassium 3.9, chloride 103, bicarbonate 30, BUN 7, creatinine 0.79. PHYSICAL EXAMINATION: GENERAL: The patient is alert, comfortable and in no acute distress. HEENT: Normocephalic, atraumatic. PULMONARY: Bilaterally clear. CARDIAC: Regular. S1, S2. ABDOMEN: Soft, dressings clean, dry, and intact. Minimal pain with palpation. Hypoactive bowel sounds. EXTREMITIES: No clubbing, cyanosis or edema. DISCHARGE MEDICATIONS: - Senna plus by mouth twice a day - folic acid 1 mg by mouth daily - multivitamin one tablet by mouth daily - MiraLAX one pack by mouth daily - thiamine 100 mg by mouth daily - Ventolin inhaler every four hours as needed - Norvasc 5 mg by mouth daily - citalopram 20 mg by mouth daily - Lisinopril 40 mg by mouth daily - Protonix 40 mg by mouth twice a day - Pravastatin 80 mg by mouth daily - Brilinta 60 mg by mouth daily - Fargo 10/325 mg every 8 hours as needed, four more days - morphine extended release 15 mg by mouth twice a day, four more days DISCHARGE INSTRUCTIONS: Four more days of Fargo and morphine were prescribed given the patient stated that because of the incarcerated hernia he had taken more than the recommended prescription of Fargo and morphine and subsequently has run out of medication. I-STOP was pulled. Four day supply has been prescribed. Please see primary care provider in 7 days. Please see general surgery, Dr. Jacobson, in 7 days. Smoking cessation and alcohol cessation. Further pain management as per primary care provider. Consider followup with pulmonary for possible sleep study as per primary. Return if symptoms worsen. MTDD
--- NOTE | 2019-01-06 06:20 | NOCOX ---
DATE OF PROCEDURE: 01/01/2019 ORDERING PROVIDER: Dr. Jacobson Study of excellent technical quality. Mean oxygen saturation for the study 89.6%. Values as low as 85% are identified in a pattern that suggests primarily alveolar hypoventilation. IMPRESSION: Baseline nocturnal hypoxemia; please correlate clinically.
--- NOTE | 2019-01-22 13:36 | DS.PDOC ---
Discharge Summary General Date of Admission Dec 30, 2018 at 04:57 Date of Discharge 01/03/2019 Discharge Summary Addendum Note to DC summary Dictated on 01/03/19 Discharge diagnosis clarification: Alcohol dependence resulted in alcohol withdrawal during the admission. Discharge Medications Scheduled Amlodipine Besylate (Amlodipine Besylate) 5 Mg Tab, 5 MG PO DAILY, (Reported) Citalopram Hydrobromide (Citalopram HBr) 20 Mg Tab, 20 MG PO DAILY, (Reported) Folic Acid (Folic Acid) 1 Mg Tab, 1 MG PO DAILY Lisinopril (Lisinopril) 40 Mg Tab, 40 MG PO DAILY, (Reported) Morphine Sulfate (Morphine Sulfate ER) 15 Mg Tab, 15 MG PO BID Multivitamins (Thera M Plus Tablet) 1 Tab Tab, 1 TAB PO DAILY Pantoprazole Sodium (Pantoprazole Sodium) 40 Mg Tab, 40 MG PO BID, (Reported) Polyethylene Glycol 3350 (Polyethylene Glycol 3350) 1 Pkt Pow, 1 PKT PO DAILY Pravastatin Sodium (Pravastatin Sodium) 80 Mg Tab, 80 MG PO DAILY, (Reported) Sennosides/Docusate Sodium (Senna-S Tablet) 1 Tab Tab, 1 TAB PO BID Thiamine Hcl (Vitamin B-1) 100 Mg Tab, 100 MG PO DAILY Ticagrelor (Brilinta) 60 Mg Tab, 60 MG PO DAILY, (Reported) RX WRITTEN FOR BID, PATIENT TAKES ONE DAILY Scheduled PRN Albuterol Sulfate (Ventolin Hfa) 108 Mcg/Act Aer, 2 PUFF INH Q4H PRN for WHEEZING, (Reported) Hydrocodone/Acetaminophen ([place] 10-325 Tablet) 1 Tab Tab, 1 TAB PO Q8H PRN for PAIN Allergies Coded Allergies: bee venom protein (honey bee) (Verified Allergy, Severe, anaphylactic shock, 01/01/19) NSAIDS (Non-Steroidal Anti-Inflamma (Verified Allergy, Intermediate, hives, 01/01/19) Penicillins (Verified Allergy, Intermediate, hives, 01/01/19) aspirin (Verified Allergy, Intermediate, hives and nausea, 01/01/19) hydrochlorothiazide (Verified Allergy, Intermediate, rash, 01/01/19) chocolate flavor (Verified Allergy, Unknown, 01/01/19) SHARRI CARTWRIGHT MD Jan 22, 2019 13:36
== END 2019-01-03 19:09 | disposition home or self-care (01) | DRG 351 ==
LOC: M ED 22:49 → M ED INP 12-30 04:57 → M MSPAV 12-30 12:58
PROVIDERS: ADMIT Surgery; ATTEND Hospitalist
PROC: 0YU60JZ Supplement Left Inguinal Region with Synthetic Substitute, Open Approach (ICD-10-PCS; principal; 2018-12-31 13:15)
DX: K40.30 Unilateral inguinal hernia, with obstruction, without gangrene, not specified as recurrent (principal); F10.239 Alcohol dependence with withdrawal, unspecified; I25.10 Atherosclerotic heart disease of native coronary artery without angina pectoris; J44.9 Chronic obstructive pulmonary disease, unspecified; I25.2 Old myocardial infarction; I10 Essential (primary) hypertension; F17.210 Nicotine dependence, cigarettes, uncomplicated; F32.9 Major depressive disorder, single episode, unspecified; G43.709 Chronic migraine without aura, not intractable, without status migrainosus; E78.5 Hyperlipidemia, unspecified; Z88.6 Allergy status to analgesic agent; Z88.0 Allergy status to penicillin; Z88.8 Allergy status to other drugs, medicaments and biological substances; Z91.030 Bee allergy status; Z91.018 Allergy to other foods; Z79.899 Other long term (current) drug therapy; Z95.5 Presence of coronary angioplasty implant and graft; Z91.19 Patient's noncompliance with other medical treatment and regimen

== ENCOUNTER 2019-01-13 22:29 | Emergency (ER) | payer MEDICARE, MEDICAID ==
[~2019-01-13] VITALS: Ht 167.6 cm; Wt 82.3 kg
[~2019-01-13 22:29] MED LIST changes: +BRIL1TAB PO; +FOLI1TAB11 PO; +PEG1POW PO; +SENN1TAB41 PO; +THIA100TA PO; +VITMTA PO
[2019-01-13] MEDS ORDERED: MORPHINE 4 MG/ML 1ML VIAL/SYRINGE (J2270) IV ONE (23:00)
[2019-01-13 23:06] LABS: HEMATOCRIT 43.6 % (42.0-52.0); HEMOGLOBIN 14.3 g/dl (13.5-17.5); MEAN CORPUSCULAR HEMOGLOBIN 29.1 pg (27.0-33.0); MEAN CORPUSCULAR HGB CONC 32.8 g/dl (32.0-36.5); MEAN CORPUSCULAR VOLUME 88.6 fl (80.0-96.0); PLATELET COUNT, AUTOMATED 331 10^3/uL (150-450); RED BLOOD COUNT 4.92 10^6/uL (4.30-6.10)
[2019-01-13] MEDS ORDERED: ISOVUE-370 76% 100ML VIAL (Q9967) As Ordered ONE (23:06)
[2019-01-13] MEDS ORDERED: ONDANSETRON 4MG/2ML VIAL (J2405) As Ordered ONE (23:13)
[2019-01-13] MEDS ORDERED: ONDANSETRON 4MG/2ML VIAL (J2405) IV ONE (23:15)
[2019-01-13 23:41] LABS: BLOOD UREA NITROGEN 6 MG/DL (7-18); CALCIUM LEVEL 8.3 MG/DL (8.5-10.1); CARBON DIOXIDE LEVEL 27 MEQ/L (21-32); CHLORIDE LEVEL 100 MEQ/L (98-107); CREATININE FOR GFR 0.67 MG/DL (0.70-1.30); GLOMERULAR FILTRATION RATE > 60.0 (>56); GLUCOSE, FASTING 79 MG/DL (70-100); POTASSIUM SERUM 4.3 MEQ/L (3.5-5.1); SODIUM LEVEL 134 MEQ/L (136-145)
[2019-01-14] MEDS ORDERED: MORPHINE 4 MG/ML 1ML VIAL/SYRINGE (J2270) IV ONE (00:15)
--- NOTE | 2019-01-14 01:11 | REPVR ---
EXAM: CT Left Lower Extremity Without Contrast. Hip EXAM DATE/TIME: 01/13/2019 10:51 PM CLINICAL HISTORY: 48 years old, male; Injury or trauma; Fall; Initial encounter; Blunt trauma; Hip; Left TECHNIQUE: Imaging protocol: CT of the Left lower extremity without contrast was performed. Exam focused on the hip. Coronal and sagittal reformatted images were created and reviewed. Radiation optimization: All CT scans at this facility use at least one of these dose optimization techniques: automated exposure control; mA and/or kV adjustment per patient size (includes targeted exams where dose is matched to clinical indication); or iterative reconstruction. COMPARISON: CT ABD/PEL W/IV CONTRAST ONLY 01/13/2019 11:46:[address] ABD/PEL W/IV CONTRAST ONLY 01/03/2019 1:05 PM FINDINGS: Bones/joints: There is no fracture, dislocation, or CT evidence for osteonecrosis involving the left hip. The left hip joint space is preserved. No arthropathy is noted. Incidental note is made of 2 sclerotic foci in the left femoral head, which represent bone islands that are unchanged compared to the prior CT scan on 01/03/2019. Soft tissues: Postoperative changes are noted from a left inguinal hernia repair. There is scarring, edema, and fluid in the subcutaneous tissues in the left inguinal region. There is a small to moderate amount of fluid in the left inguinal canal that measures approximately 45 Hounsfield units and may represent a postoperative seroma. A left inguinal hernia repair mesh is in place. IMPRESSION: 1. Postoperative changes from a left inguinal hernia repair, and there is a small to moderate amount of fluid in the left inguinal canal, which represent a postoperative seroma, and there is scarring, edema, and fluid in the subcutaneous tissues of the left inguinal region. 2. No fracture or dislocation of the left hip. Electronically signed by: Donnie Nicholson On 01/14/2019 01:10:44 AM
--- NOTE | 2019-01-14 01:18 | REPVR ---
EXAM: CT Lumbar Spine Without Contrast EXAM DATE/TIME: 01/13/2019 10:51 PM CLINICAL HISTORY: 48 years old, male; Low back pain S/P fall. TECHNIQUE: Imaging protocol: Axial computed tomography images of the lumbar spine without intravenous contrast. Coronal and sagittal reformatted images were created and reviewed. Radiation optimization: All CT scans at this facility use at least one of these dose optimization techniques: automated exposure control; mA and/or kV adjustment per patient size (includes targeted exams where dose is matched to clinical indication); or iterative reconstruction. COMPARISON: CT ABD/PEL W/IV CONTRAST ONLY 01/13/2019 11:46:[address] ABD/PEL W/IV CONTRAST ONLY 01/03/2019 1:05:34 PM FINDINGS: Vertebrae: There are 5 non-rib bearing lumbar type vertebral bodies. There is a mild levoscoliosis of the lumbar spine. There is no fracture or pars defect. The vertebral body heights are preserved. No suspicious osteolytic or osteoblastic lesion is noted. T10-T11: The disc height is preserved. No disc herniation, spinal canal stenosis, lateral recess stenosis, or neural foraminal stenosis is noted. The facet joints are normal. There is a Schmorl's node in the inferior endplate of T10. T11-T12: The disc height is preserved. No disc herniation, spinal canal stenosis, lateral recess stenosis, or neural foraminal stenosis is noted. The facet joints are normal. T12-L1: The disc height is preserved. No disc herniation, spinal canal stenosis, lateral recess stenosis, or neural foraminal stenosis is noted. The facet joints are normal. L1-L2: There is mild loss of disc height dorsally, a 2 mm retrolisthesis of L1 on L2, and endplate spurs projecting anteriorly. No disc herniation, spinal canal stenosis, lateral recess stenosis, or neural foraminal stenosis is noted. The facet joints are unremarkable. L2-L3: The disc height is preserved. There is a left foraminal protrusion, increased epidural fat posteriorly, and thickening of the ligamentum flavum. There is mild stenosis of the thecal sac. No lateral recess stenosis or neural foraminal stenosis is noted. The facet joints are unremarkable. L3-L4: The disc height is preserved. There is a broad-based posterior protrusion, mild hypertrophy of the facet joints, thickening of the ligamentum flavum, and increased epidural fat posteriorly. There is mild stenosis of the thecal sac, mild stenosis of both lateral recesses, and mild bilateral neural foraminal stenosis. L4-L5: The disc height is preserved. There is a broad-based posterior protrusion, mild hypertrophy of the facet joints, and thickening of the ligamentum flavum. There is mild bilateral neural foraminal stenosis. No spinal canal stenosis or lateral recess stenosis is noted. L5-S1: There is severe loss of disc height, vacuum phenomenon in the intervertebral disc, a broad-based posterior protrusion, endplate spurs projecting anteriorly, and mild hypertrophy of the facet joints. There is mild bilateral neural foraminal stenosis. No spinal canal stenosis or lateral recess stenosis is noted. Soft tissues: Unremarkable. Vasculature: The infrarenal abdominal aorta is ectatic and measures up to 2.5 cm in transverse dimension. There are moderate atherosclerotic calcifications. Mediastinum: There is a large sliding hiatal hernia. Retroperitoneal space: No retroperitoneal hemorrhage is noted. IMPRESSION: 1. No fracture in the lumbar spine. 2. L2-L3: Mild stenosis of the thecal sac. 3. L3-L4: Mild stenosis of the thecal sac, mild stenosis of both lateral recesses, and mild bilateral neural foraminal stenosis. 4. L4-L5: Mild bilateral neural foraminal stenosis. 5. L5-S1: Mild bilateral neural foraminal stenosis. Electronically signed by: Donnie Nicholson On 01/14/2019 01:18:27 AM
--- NOTE | 2019-01-14 01:19 | REPVR ---
EXAM: CT Abdomen and Pelvis With Contrast EXAM DATE/TIME: 01/13/2019 10:51 PM CLINICAL HISTORY: 48 years old, male; Abdominal pain; Localized; Left lower quadrant (llq); Prior surgery; Surgery date: 3-7 days post-operative; Surgery type: Hernia; Additional info: Pain at left inguinal hernia repair site TECHNIQUE: Imaging protocol: Axial computed tomography images of the abdomen and pelvis with intravenous contrast. Coronal and sagittal reformatted images were created and reviewed. Radiation optimization: All CT scans at this facility use at least one of these dose optimization techniques: automated exposure control; mA and/or kV adjustment per patient size (includes targeted exams where dose is matched to clinical indication); or iterative reconstruction. Contrast material: iso Contrast volume: 100 ml Contrast route: ac COMPARISON: CT ABD/PEL W/IV CONTRAST ONLY 01/03/2019 1:05 PM FINDINGS: Lower thorax: There is a large hiatal hernia, which is similar in appearance compared to the prior CT scan on 01/03/2019. The imaged lung bases are clear. No cardiomegaly or pericardial effusion is noted. ABDOMEN: Liver: The attenuation of the liver is lower compared to the spleen, which can be seen with fatty liver infiltration. No liver lesion is seen. The contour of the liver is smooth. No hepatomegaly is noted. Gallbladder and bile ducts: No calcified gallstones are seen. No gallbladder wall thickening, pericholecystic fluid, or pericholecystic inflammatory changes are identified. No dilation of the intrahepatic or extrahepatic bile ducts is noted. Pancreas: Normal. No ductal dilation. Spleen: Normal. No splenomegaly is noted. Adrenals: Normal. No mass. Kidneys and ureters: The kidneys are normal in appearance. No renal lesion is identified. No calculi are seen in the kidneys or ureters. There is no hydronephrosis or hydroureter. Stomach and bowel: There is no evidence for a bowel obstruction, diverticulosis, diverticulitis, colitis, pneumatosis intestinalis, intussusception, volvulus, or perforated viscus. Appendix: Normal. There is no evidence for appendicitis. PELVIS: Bladder: The distended urinary bladder is normal in appearance. No stones or masses are seen in the bladder. The contour of the bladder is normal. Reproductive: There are calcifications in the prostate gland. The seminal vesicles are unremarkable. ABDOMEN and PELVIS: Intraperitoneal space: Normal. No free air. No fluid collection. Bones/joints: The imaged bony structures are intact. There is no suspicious osteolytic or osteoblastic lesion. There are degenerative changes in the lumbar spine. There is a mild levoscoliosis of the lumbar spine. Incidental note is made of 2 sclerotic foci in the left femoral head, which represent bone islands that are unchanged compared to the prior CT scan on 01/03/2019. Soft tissues: There is a small fat containing umbilical hernia, which is similar in appearance compared to the prior CT scan on 01/03/2019. Postoperative changes are noted from a left inguinal hernia repair. There is scarring, edema, and fluid in the subcutaneous tissues in the left inguinal region. There is a small to moderate amount of fluid in the left inguinal canal that measures approximately 45 Hounsfield units and may represent a postoperative seroma. A left inguinal hernia repair mesh is in place. There is a small fat-containing direct right inguinal hernia (image 47 of the coronal series 202), which is similar in appearance compared to the prior CT scan on 01/03/2019. Vasculature: The distal infrarenal abdominal aorta is ectatic and measures up to 2.5 cm in transverse diameter, which is unchanged compared to the prior CT scan on 01/03/2019. There are mild to moderate atherosclerotic calcifications. The abdominal aorta is normal in caliber and patent. The iliac arteries, common femoral arteries, renal arteries, celiac artery, superior mesenteric artery, and inferior mesenteric artery are patent. Lymph nodes: Normal. No enlarged lymph nodes. IMPRESSION: 1. Postoperative changes from a left inguinal hernia repair, and there is a small to moderate amount of fluid in the left inguinal canal, which represent a postoperative seroma, and there is scarring, edema, and fluid in the subcutaneous tissues of the left inguinal region. 2. Large hiatal hernia, which is similar in appearance compared to the prior CT scan on 01/03/2019. 3. Small fat containing umbilical hernia, which is similar in appearance compared to the prior CT scan on 01/03/2019. 4. Small fat-containing direct right inguinal hernia, which is similar in appearance compared to the prior CT scan on 01/03/2019. Electronically signed by: Donnie Nicholson On 01/14/2019 01:18:56 AM
[2019-01-14 01:29] VITALS: BP 113/72
[2019-01-14] MEDS ORDERED: OXAZEPAM 15 MG CAP PO ONE (01:30)
[2019-01-14] MEDS ORDERED: PERCOCET 5MG/325MG TAB PO ONE (01:45)
--- NOTE | 2019-01-14 14:41 | ED PDOC ---
Post-Departure Follow-Up dr cruz, dr corona, [facility] all faxed formal report of ct abd/p for fu deisyg Kishore Lomas MD Jan 14, 2019 14:41
--- NOTE | 2019-01-14 14:43 | ED PDOC ---
Post-Departure Follow-Up additiionally ct hip also faxed to dr cruz, dr corona and [facility] for Kishore Burnett lg, MD Jan 14, 2019 14:43
== END 2019-01-14 01:47 | disposition home or self-care (01) ==
LOC: M ED 22:29
DX: M54.5 Low back pain (principal); R20.2 Paresthesia of skin; R29.6 Repeated falls; Z98.890 Other specified postprocedural states; K91.872 Postprocedural seroma of a digestive system organ or structure following a digestive system procedure; I11.9 Hypertensive heart disease without heart failure; I25.10 Atherosclerotic heart disease of native coronary artery without angina pectoris; E78.5 Hyperlipidemia, unspecified; J44.9 Chronic obstructive pulmonary disease, unspecified; Z95.5 Presence of coronary angioplasty implant and graft; F17.200 Nicotine dependence, unspecified, uncomplicated; Z88.8 Allergy status to other drugs, medicaments and biological substances; Z88.0 Allergy status to penicillin; Z91.030 Bee allergy status; Z91.018 Allergy to other foods; Z79.899 Other long term (current) drug therapy
CPT/HCPCS: 72131; 73700; 74177; 80048; 85027; 96374; 96375; 96376; 99284; J2270; J2405; Q9967

== ENCOUNTER → 2019-06-18 | Outpatient (REF) | payer MEDICARE, MEDICAID ==
[~2019-06-18] MED LIST changes: -MORP-38 PO; +MORP-69 PO
[2019-06-18 19:30] LABS: BLOOD UREA NITROGEN 11 MG/DL (7-18); CARBON DIOXIDE LEVEL 30 MEQ/L (21-32); CHLORIDE LEVEL 98 MEQ/L (98-107); CREATININE FOR GFR 0.77 MG/DL (0.70-1.30); GLOMERULAR FILTRATION RATE > 60.0 (>56); GLUCOSE, FASTING 100 MG/DL (70-100); POTASSIUM SERUM 4.4 MEQ/L (3.5-5.1); SODIUM LEVEL 134 MEQ/L (136-145)
[2019-06-18 19:32] LABS: BASO % 0.7 % (0.0-1.0); EOS # 0.2 10^3/uL (0.0-0.5); HEMATOCRIT 43.5 % (42.0-52.0); HEMOGLOBIN 14.6 g/dl (13.5-17.5); LYMPH % 33.5 % (24.0-44.0); MEAN CORPUSCULAR HEMOGLOBIN 29.5 pg (27.0-33.0); MEAN CORPUSCULAR HGB CONC 33.6 g/dl (32.0-36.5); MEAN CORPUSCULAR VOLUME 87.9 fl (80.0-96.0); MONO # 0.5 10^3/uL (0.0-0.8); MONO % 9.1 % (0.0-5.0); NEUTROPHILS # 3.2 10^3/uL (1.5-8.5); NEUTROPHILS % 53.2 % (36.0-66.0); PLATELET COUNT, AUTOMATED 233 10^3/uL (150-450); RED BLOOD COUNT 4.95 10^6/uL (4.30-6.10); WHITE BLOOD COUNT 5.9 10^3/uL (4.0-10.0)
== END ==
LOC: M LAB REF 19:08 → M LABDRWAD 19:08
PROVIDERS: ATTEND Internal Medicine Cardiovascular Disease
DX: I10 Essential (primary) hypertension (principal); I25.10 Atherosclerotic heart disease of native coronary artery without angina pectoris

== ENCOUNTER 2019-06-29 02:03 | Emergency (ER) | payer MEDICARE, MEDICAID ==
[~2019-06-29] VITALS: Ht 167.6 cm; Wt 83.6 kg
[2019-06-29 02:33] LABS: BASO # 0.1 10^3/uL (0.0-0.2); BASO % 0.5 % (0.0-1.0); EOS # 0.4 10^3/uL (0.0-0.5); EOS % 2.8 % (0.0-3.0); HEMATOCRIT 42.6 % (42.0-52.0); HEMOGLOBIN 14.7 g/dl (13.5-17.5); LYMPH # 3.1 10^3/uL (1.5-5.0); LYMPH % 24.1 % (24.0-44.0); MEAN CORPUSCULAR HEMOGLOBIN 29.9 pg (27.0-33.0); MEAN CORPUSCULAR HGB CONC 34.5 g/dl (32.0-36.5); MEAN CORPUSCULAR VOLUME 86.6 fl (80.0-96.0); MONO # 0.8 10^3/uL (0.0-0.8); MONO % 6.4 % (0.0-5.0); NEUTROPHILS # 8.6 10^3/uL (1.5-8.5); NEUTROPHILS % 65.8 % (36.0-66.0); PLATELET COUNT, AUTOMATED 244 10^3/uL (150-450); RED BLOOD COUNT 4.92 10^6/uL (4.30-6.10)
[2019-06-29 02:43] LABS: INR 0.98; PROTHROMBIN TIME 12.7 SECONDS (11.8-14.0)
--- NOTE | 2019-06-29 02:58 | REPVR ---
PROCEDURE INFORMATION: Exam: CT Head Without Contrast Exam date and time: 06/29/2019 2:35 AM Clinical history: 49 years old, male; Injury or trauma; Fall; Initial encounter; Blunt trauma (contusions or hematomas); With loss of consciousness; Not specified; Additional info: Head injury, loc, ETOH TECHNIQUE: Imaging protocol: Computed tomography of the head without contrast. Radiation optimization: All CT scans at this facility use at least one of these dose optimization techniques: automated exposure control; mA and/or kV adjustment per patient size (includes targeted exams where dose is matched to clinical indication); or iterative reconstruction. COMPARISON: CT Head without contrast 04/27/2018 6:21 PM FINDINGS: Brain: There is no acute intracranial abnormality. Mild prominence of ventricles and sulci representing volume loss. Mild small vessel ischemic changes are seen. There is no mass, midline shift, or mass effect. Amado-white matter differentiation is preserved. There is no evidence of hemorrhage. There is no extra-axial fluid collection. Basal cisterns are patent. Ventricles: See Brain Finding. Bones/joints: The visualized osseous structures are unremarkable. Sinuses: Visualized sinuses demonstrates moderate opacification of the left maxillary sinus, mild mucosal thickening of ethmoidal air cells and right maxillary sinus and bilateral sphenoid sinuses. Mastoid air cells: Fluid in bilateral mastoid air cells, right greater than left. Mastoid air cells are clear. Soft tissues: Unremarkable. IMPRESSION: 1. Mild volume loss and small vessel ischemic changes. 2. No acute intracranial abnormality. 3. Fluid in bilateral mastoid air cells, right greater than left. 4. Moderate sinus disease. Electronically signed by: Heidi Rubio On 06/29/2019 02:58:35 AM
--- NOTE | 2019-06-29 03:00 | REPVR ---
PROCEDURE INFORMATION: Exam: CT Cervical Spine Without Contrast Exam date and time: 06/29/2019 2:35 AM Clinical history: 49 years old, male; Injury or trauma; Fall; Initial encounter; Blunt trauma; Additional info: Head injury, loc, ETOH TECHNIQUE: Imaging protocol: Computed tomography images of the cervical spine without contrast. Radiation optimization: All CT scans at this facility use at least one of these dose optimization techniques: automated exposure control; mA and/or kV adjustment per patient size (includes targeted exams where dose is matched to clinical indication); or iterative reconstruction. COMPARISON: CT Spine,cervical w/o contrast 04/27/2018 6:21 PM FINDINGS: Vertebrae: No acute fracture. Minimal retrolisthesis of C3 on C4 and anterolisthesis of C4 on C5. Multilevel degenerative changes with anterior osteophyte formation, loss of disc spaces and facet joint arthropathy and endplate sclerosis small petite as above C5-C6 and C6-C7. Discs/Spinal canal/Neural foramina: Posterior disc osteophyte formation most marked at the level of C5/C6 and C6-C7 causing mild indentation of thecal sac. Soft tissues: Unremarkable. Lungs: Lung apices are normal. IMPRESSION: No acute findings. Electronically signed by: Heidi Rubio On 06/29/2019 03:00:46 AM
[2019-06-29 03:04] LABS: ALBUMIN 3.5 GM/DL (3.2-5.2); ALT/SGPT 55 U/L (12-78); BILIRUBIN,DIRECT 0.1 MG/DL (0.0-0.2); BILIRUBIN,TOTAL 0.3 MG/DL (0.2-1.0); BLOOD UREA NITROGEN 6 MG/DL (7-18); CALCIUM LEVEL 8.3 MG/DL (8.5-10.1); CARBON DIOXIDE LEVEL 19 MEQ/L (21-32); CHLORIDE LEVEL 95 MEQ/L (98-107); CK-MB VALUE MASS 3.1 NG/ML (<3.6); CPK CREATINE PHOSPHOKINASE 260 U/L (39-308); CREATININE FOR GFR 0.87 MG/DL (0.70-1.30); GLOMERULAR FILTRATION RATE > 60.0 (>56); GLUCOSE, FASTING 77 MG/DL (70-100); LIPASE 346 U/L (73-393); MB/CK RELATIVE INDEX 1.19 (< OR =4); POTASSIUM SERUM 3.9 MEQ/L (3.5-5.1); SODIUM LEVEL 129 MEQ/L (136-145); TROPONIN I < 0.02 NG/ML (< 0.10)
[2019-06-29] MEDS ORDERED: ONDANSETRON 4MG/2ML VIAL (J2405) IV ONE (03:30)
[2019-06-29] MEDS ORDERED: MORPHINE 4 MG/ML 1ML VIAL/SYRINGE (J2270) IV PRN (03:30)
[2019-06-29 03:56] LABS: ETHYL ALCOHOL (ETHANOL) 0.223 % (0.000-0.010)
[2019-06-29] MEDS ORDERED: HYDROMORPHONE HCL 0.5 MG/ 0.5 ML SYRINGE (J1170 PER 1) IV PRN (05:30)
[2019-06-29] MEDS ORDERED: methylPREDNISolone INJ 125 MG/2 ML VIAL (J2930) IV ONE (05:30)
[2019-06-29 06:18] LABS: CK-MB VALUE MASS 3.2 NG/ML (<3.6); CPK CREATINE PHOSPHOKINASE 272 U/L (39-308); MB/CK RELATIVE INDEX 1.18 (< OR =4); TROPONIN I < 0.02 NG/ML (< 0.10)
[2019-06-29] MEDS ORDERED: PRED20TA PO (06:45)
[2019-06-29 07:10] VITALS: BP 145/71
--- NOTE | 2019-06-29 13:33 | ECGEPIP ---
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
--- NOTE | 2019-06-29 14:26 | REP ---
CHEST, PORTABLE: There is no evidence of acute infiltrate. No pleural effusion is seen. The heart is normal in size. The mediastinal silhouette is unremarkable. The visualized osseous structures are intact. IMPRESSION: No acute pulmonary disease. Electronically Signed by Reji Amado MD 06/29/2019 06:08 P
== END 2019-06-29 07:12 | disposition home or self-care (01) ==
LOC: M ED 02:03
DX: T14.8XXA Other injury of unspecified body region, initial encounter (principal); F10.920 Alcohol use, unspecified with intoxication, uncomplicated; R07.9 Chest pain, unspecified; R11.0 Nausea; R42 Dizziness and giddiness; W10.8XXA Fall (on) (from) other stairs and steps, initial encounter; Y92.098 Other place in other non-institutional residence as the place of occurrence of the external cause; F17.210 Nicotine dependence, cigarettes, uncomplicated; Z88.8 Allergy status to other drugs, medicaments and biological substances; Z88.0 Allergy status to penicillin; Z88.6 Allergy status to analgesic agent; Z91.018 Allergy to other foods; Z91.030 Bee allergy status; Z79.899 Other long term (current) drug therapy; Z79.891 Long term (current) use of opiate analgesic
CPT/HCPCS: 36415; 70450; 71045; 72125; 80053; 82248; 82550; 82553; 83690; 84484; 85025; 85610; 93005; 93041; 94760; 96374; 96375; 99285; G0480; J1170; J2270; J2405; J2930

== ENCOUNTER 2019-07-26 22:23 | Inpatient (IN) | payer MEDICARE, MEDICAID ==
[~2019-07-26] VITALS: Ht 167.6 cm; Wt 86.0 kg
[~2019-07-26 22:23] MED LIST changes: +PRED20TA PO
[2019-07-26] MEDS ORDERED: KETAMINE HCL 200 MG/20 ML VIAL IV ONE (22:45)
[2019-07-26] MEDS ORDERED: methylPREDNISolone INJ 125 MG/2 ML VIAL (J2930) IV ONE (22:45)
[2019-07-26] MEDS ORDERED: diphenhydrAMINE INJ 50MG/ML VIAL (J1200) IV ONE (22:45)
[2019-07-26] MEDS ORDERED: MIDAZOLAM INJ 5 MG/ML VIAL (J2250) As Ordered ONE ×2 (22:51→23:59)
[2019-07-26] MEDS ORDERED: PROPOFOL 1,000 MG/100 ML VIAL As Ordered ONE (22:51)
[2019-07-26] MEDS: PROPOFOL 1,000 MG in IV 1 EA IV SCH ×2 (23:03→23:07)
[2019-07-26 23:21] LABS: ALBUMIN 3.6 GM/DL (3.2-5.2); ALT/SGPT 33 U/L (12-78); BILIRUBIN,DIRECT < 0.1 MG/DL (0.0-0.2); BILIRUBIN,TOTAL 0.3 MG/DL (0.2-1.0); BLOOD UREA NITROGEN 5 MG/DL (7-18); C REACTIVE PROTEIN QUANTITATIV < 0.30 MG/DL (0.00-0.30); CALCIUM LEVEL 8.6 MG/DL (8.5-10.1); CARBON DIOXIDE LEVEL 26 MEQ/L (21-32); CHLORIDE LEVEL 94 MEQ/L (98-107); COMPLEMENT C4 19 MG/DL (10-40); CREATININE FOR GFR 0.68 MG/DL (0.70-1.30); GLOMERULAR FILTRATION RATE > 60.0 (>56); GLUCOSE, FASTING 86 MG/DL (70-100); POTASSIUM SERUM 3.8 MEQ/L (3.5-5.1); SODIUM LEVEL 128 MEQ/L (136-145); TOTAL PROTEIN 7.7 GM/DL (6.4-8.2)
[2019-07-26 23:22] LABS: ERYTHROCYTE SEDIMENTATION RATE 2 mm/hr (0-20)
[2019-07-26] MEDS ORDERED: ISOVUE-370 76% 100ML VIAL (Q9967) As Ordered ONE (23:23)
[2019-07-26] MEDS ORDERED: ETOMIDATE INJ 20MG/10ML VIAL IV STA (23:49)
[2019-07-27] VITALS (87 sets, daily range): BP systolic 79–149; BP diastolic 47–85
[2019-07-27] MEDS ORDERED: HYDR-4517 PO
[2019-07-27] MEDS ORDERED: MIDAZOLAM HCL 50 MG in D5W 40 ML IV SCH ×2
[2019-07-27] MEDS ORDERED: MIDAZOLAM INJ 2 MG/2 ML VIAL (J2250) IV ONE ×2
[2019-07-27] MEDS ORDERED: SM S1TAB6 PO
[2019-07-27] MEDS ORDERED: MORP-69 PO
[2019-07-27] MEDS ORDERED: CLOP75TA2 PO (00:02)
[2019-07-27] MEDS ORDERED: diphenhydrAMINE INJ 50MG/ML VIAL (J1200) IV ONE (00:15)
[2019-07-27 00:18] LABS: BASO # 0.1 10^3/uL (0.0-0.2); BASO % 0.6 % (0.0-1.0); EOS # 0.3 10^3/uL (0.0-0.5); EOS % 3.3 % (0.0-3.0); HEMOGLOBIN 14.7 g/dl (13.5-17.5); LYMPH # 2.7 10^3/uL (1.5-5.0); LYMPH % 27.6 % (24.0-44.0); MEAN CORPUSCULAR HEMOGLOBIN 29.5 pg (27.0-33.0); MEAN CORPUSCULAR HGB CONC 34.2 g/dl (32.0-36.5); MEAN CORPUSCULAR VOLUME 86.2 fl (80.0-96.0); MONO # 0.7 10^3/uL (0.0-0.8); MONO % 6.6 % (0.0-5.0); NEUTROPHILS # 6.1 10^3/uL (1.5-8.5); NEUTROPHILS % 61.5 % (36.0-66.0); PLATELET COUNT, AUTOMATED 218 10^3/uL (150-450); RED BLOOD COUNT 4.99 10^6/uL (4.30-6.10); WHITE BLOOD COUNT 9.9 10^3/uL (4.0-10.0)
--- NOTE | 2019-07-27 00:27 | REPVR ---
PROCEDURE INFORMATION: Exam: CT Angiography Neck With Contrast Exam date and time: 07/26/2019 11:49 PM Clinical history: 49 years old, male; Mass, lump, or swelling in neck; Additional info: Throat swollen TECHNIQUE: Imaging protocol: Computed tomography angiography of the neck with intravenous contrast. 3D rendering: MIP reconstructed images were created and reviewed. Radiation optimization: All CT scans at this facility use at least one of these dose optimization techniques: automated exposure control; mA and/or kV adjustment per patient size (includes targeted exams where dose is matched to clinical indication); or iterative reconstruction. Contrast material: ISOVUE 370; Contrast volume: 100 ml; Contrast route: IV; COMPARISON: CT Spine,cervical w/o contrast 06/29/2019 2:22 AM FINDINGS: Tubes, catheters and devices: Tracheostomy tube in place. VASCULATURE: Right common carotid artery: No significant stenosis. No dissection or occlusion. Right internal carotid artery: Atherosclerotic plaques involving the proximal extracranial right internal carotid artery without evidence of hemodynamically significant stenosis (0% stenosis by NASCET criteria). Right external carotid artery: No occlusion or significant stenosis. Right vertebral artery: No significant stenosis. No dissection or occlusion. Left common carotid artery: No significant stenosis. No dissection or occlusion. Left internal carotid artery: Atherosclerotic plaques involving the proximal extracranial left internal carotid artery without evidence of hemodynamically significant stenosis (0% stenosis by NASCET criteria). Left external carotid artery: No occlusion or significant stenosis. Left vertebral artery: No significant stenosis. No dissection or occlusion. NECK: Sinuses: Moderate mucosal thickening of the paranasal sinuses. Bones/joints: No acute fracture. Mastoid air cells: Near complete opacification of right mastoid air cells and right middle ear cavity. Partial opacification of left mastoid air cells. Soft tissues: Marked subcutaneous fat stranding and edema throughout the deep spaces of the floor of the mouth and chin including the submandibular and sublingual spaces. . Lungs: Emphysematous changes of the lungs. Esophagus: Esophagus is mildly dilated with fluid. IMPRESSION: 1. No occlusion, dissection, or significant stenosis in the arteries of the neck. 2. Marked subcutaneous fat stranding and edema throughout the deep spaces of the floor of the mouth and chin including the submandibular and sublingual spaces. Findings concerning for infectious/inflammatory process such as cellulitis. 3. Near complete opacification of right mastoid air cells and right middle ear cavity. Correlate clinically for signs/symptoms of otomastoiditis. 4. Partial opacification of left mastoid air cells. 5. Moderate mucosal thickening of the paranasal sinuses. 6. Esophagus is mildly dilated with fluid. COMMENT: Reference per NASCET criteria for degree of stenosis: Mild: less than 50% stenosis. Moderate: 50-69% stenosis. Severe: 70-94% stenosis. Near occlusion: 95-99% stenosis. Electronically signed by: Moises Serrano On 07/27/2019 00:27:13 AM
[2019-07-27] MEDS ORDERED: MULTIVITAMIN -ADULT INJECTION 10 ML, THIAMINE INJection 100 MG, FOLIC ACID 1 MG in NS 1... IV ONE ×2 (00:30→02:00)
[2019-07-27] MEDS: PROPOFOL 1,000 MG in IV 1 EA IV SCH ×6 (00:40→23:05)
[2019-07-27] MEDS: D5W/0.45% SODIUM CHLORIDE 1,000 ML IV SCH ×2 (00:59→14:42)
[2019-07-27] MEDS: FAMOTIDINE IV BAG 20 MG in IV 1 EA IV SCH ×2 (02:46→12:34)
[2019-07-27] MEDS ORDERED: NS 1,000 ML IV ONE (04:00)
[2019-07-27] MEDS: MORPHINE 4 MG/ML 1ML VIAL/SYRINGE (J2270) IV PRN ×3 (04:18→12:22)
[2019-07-27] MEDS ORDERED: LIDOCAINE 4% INJ 5 ML AMP INH SCH (06:00)
[2019-07-27] MEDS: methylPREDNISolone INJ 125 MG/2 ML VIAL (J2930) IV SCH ×3 (06:07→18:06)
[2019-07-27] MEDS: diphenhydrAMINE INJ 50MG/ML VIAL (J1200) IV SCH ×3 (06:07→18:06)
[2019-07-27] MEDS: MIDAZOLAM INJ 2 MG/2 ML VIAL (J2250) IV PRN ×3 (06:23→12:21)
[2019-07-27] MEDS: IPRATROPIUM 0.5MG/ALBUTEROL 2.5MG INH SOL UD 3ML (DUONEB)(J7620) NEB SCH ×4 (07:56→19:19)
--- NOTE | 2019-07-27 08:17 | HPE ---
DATE OF ADMISSION: 07/27/2019 Critical care time was 50 minutes, this excludes all procedures. Mr. Thayer is a 49-year-old male who had a reportedly bit his tongue and came to the emergency room after there was significant swelling, elective awake intubation was initiated. However, there was significant supraglottic edema. The emergency room physician was unable to have any viewing and ultimately the patient requires cricothyrotomy. The tongue is significantly enlarged and it was thought that the patient being on the KHADIJAH inhibitor likely triggered an angioedema of the trauma. He was therefore treated with Solu-Medrol, Benadryl and fresh frozen plasma has been ordered. The patient's family is not at bedside when I examine the patient, not available at the time for interview; however, his chart is available to medical records. He has a known history of alcohol use, smoking and coronary artery disease amongst others listed below. Apparently, there were no other precipitating symptoms. The patient does have a history of chronic trauma and falls based on his records in the emergency room. Upon entering the room, the patient initially was in PEE, after return from CT scan. The patient has some agitation, was sedated with propofol and Versed. Cricothyrotomy appears to be in good position. There is no swelling around the cricothyrotomy or evidence of active bleeding. The patient was on pressure-like regulated volume control (PRVC). I adjusted mechanical ventilation at bedside. PAST MEDICAL HISTORY: 1. Coronary artery disease status post stenting on Brilinta. 2. Dyslipidemia. 3. Reported chronic obstructive pulmonary disease (COPD) with history of smoking. 4. Hypertension. 5. Alcohol abuse with history of alcohol withdrawal. 6. Depression. 7. Chronic back pain. 8. History of incarcerated left inguinal hernia. ALLERGIES: NONSTEROIDALS, PENICILLIN, BEE VENOM, HYDROCHLOROTHIAZIDE. HOME MEDICATIONS: - albuterol - amlodipine 5 mg by mouth daily - citalopram 20 mg p.o. daily - clopidogrel 75 mg p.o. daily, this is a question as the patient states that he is on Brilinta 60 mg p.o. daily, unlikely that he is on both these medications. - hydrocodone/acetaminophen 10/325 one tablet by mouth every 8 hours - Lisinopril 40 mg p.o. daily - morphine sulfate 15 mg by mouth twice a day - pantoprazole 40 mg by mouth twice a day - pravastatin 80 mg by mouth daily - senna 1 tablet by mouth twice a day FAMILY HISTORY/SOCIAL HISTORY/REVIEW OF SYSTEMS: All unobtainable. PHYSICAL EXAMINATION: Temperature is 97.7, pulse is 92, respiratory rate is 21, blood pressure is 102/53 and an oxygen saturations and the 98% on 0.50 FIO2. HEENT: Sclerae clear and anicteric. Pupils are small approximately 4 mm but reactive to light bilaterally. Tongue is enlarged, evidence of laceration on the bottom of the tongue with significant tongue swelling. Very poor dentition. Multiple cavitated teeth, but no evidence of a christiano abscess. The posterior pharynx could not be viewed. Neck: Supple. There is no tracheal deviation, cricothyrotomy is in place and secured by neck straps. Lymphatics: No cervical supraclavicular axillary adenopathy. Cardiac: Distant S1, S2 without audible murmur, rub or gallop. PMI is difficult to palpate due to body habitus. Pulmonary: Decreased breath sounds throughout both lung hernandez without rales, rhonchi or wheezes. No dullness to percussion. No accessory muscle use. Abdomen: I do not auscultate any bowel sounds. I do not auscultate any bruits on percussion of the liver. There is no hepatosplenomegaly. There is no splenomegaly. There is no masses or hernia. Extremities: No cyanosis, clubbing or edema. Skin: There are tattoos without rashes or jaundice. Musculoskeletal: No significant musculoskeletal abnormalities to suggest injury elsewhere. No joint effusions. Neuro: The patient is currently sedated. Does move extremities appropriately when agitated. LABORATORY DATA: Laboratory evaluation so far shows hyponatremia with a sodium 128, potassium of 3.8, chloride of 94, bicarbonate of 26, BUN of 5, creatinine of 0.68. The last sodium before this in June was measured at 129, appears to be a chronic hyponatremia likely from his alcohol use. Glucose of 86, C1 esterase is pending. ESR is low. CBC shows a white count of 9.9, hemoglobin 14.7, platelet count of 218 with a fairly normal differential except for eosinophilia at 3.3%. Neck CT shows no occlusion, dissection, or significant stenosis of the arteries in the neck. Shows marked edema throughout the floor of the mouth, chin, submandibular lingular spaces, findings concerning for infectious, inflammatory process. Near complete opacification of the right mastoid air cells in right middle ear cavity concern for otomastoiditis. Partial opacification of the left mastoid air cells. Moderate mucosal thickening of the paranasal sinuses. The esophagus is mildly dilated with fluid. That was the radiology review. On my review, proximal to the cricothyrotomy there appears to be narrowing of the airway, at least in the supraglottic area. The small amount all lung hernandez that are seen do show some emphysematous change. Chest x-ray shows the cricothyrotomy in good position. No acute infiltrate, possible bilateral pulmonary artery enlargement; however, this is a portable film. There is no costophrenic angle abnormalities. No evidence of pleural effusion. No evidence of pneumothorax. IMPRESSION: 1. Upper airway obstruction with tongue edema thought to be secondary to possibly angioedema. The patient is on Benadryl. I placed him on ranitidine, Solu-Medrol. We will continue administration of FFP. ENT will be consulted. The patient will have to be n.p.o., unable to put feeding tube through. 2. History of alcohol withdrawal. We will continue on as needed benzodiazepines IV, replace thiamine and folate with a banana bag. 3. Emphysema. We will continue albuterol scheduled every 4 hours. No evidence of pneumonia at this point in time. 4. Coronary artery disease. We will hold the antiplatelet therapy as the patient may require surgery. Also holding KHADIJAH inhibitor therapy. We will monitor blood pressure however, given the sedatives that he is requiring blood pressure is remaining on the low side. 5. History of chronic back pain. We will provide IV morphine and continue to monitor for signs and symptoms of pain. 6. Deep vein thrombosis (DVT) prophylaxis currently with Marco and Aiden's until further surgical decisions are made. Critical care time as mentioned above, this excludes all procedures.
[2019-07-27] MEDS ORDERED: ETOMIDATE INJ 20MG/10ML VIAL ONE (08:32)
[2019-07-27] MEDS: MIDAZOLAM HCL 100 MG in D5W 80 ML IV SCH ×2 (08:58→19:49)
--- NOTE | 2019-07-27 08:59 | REP ---
Portable chest x-ray: Single view. History: Respiratory failure. Comparison study: July 26, 2019. Findings: EKG monitoring electrodes overlie the chest. Tracheostomy tube is seen in place. The left hemidiaphragm is slightly elevated as before. There are some increased markings in the left lower lobe consistent with atelectasis and/or infiltrate. Remaining lung hernandez appear clear. There is some haziness at the lateral pleural angle. Electronically Signed by Laith Dasilva MD 07/27/2019 08:51 A
--- NOTE | 2019-07-27 09:01 | REP ---
Portable chest x-ray 11:55 p.m. film. Single view. History: Respiratory failure. Comparison study: June 29, 2019. Findings: Tracheostomy tube is seen in good position. Left hemidiaphragm is slightly elevated. There is evidence of a hiatal hernia. Heart is not enlarged. Lungs are symmetrically aerated and clear. Electronically Signed by Laith Dasilva MD 07/27/2019 08:53 A
[2019-07-27] MEDS: CHLORHEXIDINE GLUCONATE 0.12 % 15ML UDC (PERIDEX ORAL RINSE) MT SCH ×2 (09:03→20:00)
[2019-07-27 09:07] LABS: ABG BASE EXCESS -5.6 (-2.0-2.0); ABG HCO3 19.2 MEQ/L (22.0-26.0); ABG O2 SATURATION 98.8 % (95.0-99.0); ABG PARTIAL PRESSURE CO2 35.5 mmHg (35.0-45.0); ABG PARTIAL PRESSURE O2 126.9 mmHg (75.0-100.0); ABG STANDARD HCO3 19.9 MEQ/L (22.0-26.0); ABG TOTAL CO2 20.3 MEQ/L (22.0-29.0); ABG pH (ARTERIAL) 7.352 UNITS (7.350-7.450)
[2019-07-27 09:15] LABS: HEMATOCRIT 37.6 % (42.0-52.0); MEAN CORPUSCULAR HEMOGLOBIN 29.6 pg (27.0-33.0); MEAN CORPUSCULAR HGB CONC 33.2 g/dl (32.0-36.5); MEAN CORPUSCULAR VOLUME 89.1 fl (80.0-96.0); PLATELET COUNT, AUTOMATED 175 10^3/uL (150-450); RED BLOOD COUNT 4.22 10^6/uL (4.30-6.10); WHITE BLOOD COUNT 6.7 10^3/uL (4.0-10.0)
[2019-07-27 09:22] LABS: HEMOGLOBIN 12.5 g/dl (13.5-17.5)
[2019-07-27 09:29] LABS: INR 0.99; PARTIAL THROMBOPLASTIN TIME 25.1 SECONDS (25.0-38.4); PROTHROMBIN TIME 12.8 SECONDS (11.8-14.0)
[2019-07-27 09:37] LABS: ALBUMIN 2.9 GM/DL (3.2-5.2); ALT/SGPT 23 U/L (12-78); BILIRUBIN,TOTAL 0.3 MG/DL (0.2-1.0); BLOOD UREA NITROGEN 6 MG/DL (7-18); CALCIUM LEVEL 7.6 MG/DL (8.5-10.1); CARBON DIOXIDE LEVEL 23 MEQ/L (21-32); CHLORIDE LEVEL 104 MEQ/L (98-107); CREATININE FOR GFR 0.69 MG/DL (0.70-1.30); GLOMERULAR FILTRATION RATE > 60.0 (>56); GLUCOSE, FASTING 105 MG/DL (70-100); POTASSIUM SERUM 4.6 MEQ/L (3.5-5.1); SODIUM LEVEL 135 MEQ/L (136-145); TOTAL PROTEIN 6.3 GM/DL (6.4-8.2)
--- NOTE | 2019-07-27 10:07 | IPNPDOC ---
Text Note Date of Service The patient was seen on 07/27/19. NOTE ENT Impressive presentation of acute angioneurotic edema causing rapid airway obstruction. Excellent care by first responders with Cricothyroidotomy emergently. Today he is already showing imrovment in soft tissue swelling of his face and tongue. His cricothyroid tube is functioning and he is ventilating satisfactorily with it. Review of his CT shows massive tongue edema and glottic soft tissue edema as well. I would continue supportive care and the medical treatemtn for the edema Tomorrow I will look at his larynx with a flexible laryngoscope. The literature supports NOT converting the C-T tube to a surgical tracheostomy for short term self limited airway obsturciton So at this point there is no plan to convert this. Thank you. VSJessica, I+O VSJessica, I+O Laboratory Tests 07/26/19 22:44 07/26/19 22:45 07/27/19 09:02 Vital Signs Date Time Temp Pulse Resp B/P (MAP) Pulse Ox O2 Delivery O2 Flow Rate FiO2 07/27/19 09:15 92 94/53 (67) 95 Ventilator 40 07/27/19 09:13 20 07/27/19 08:03 96.3 07/26/19 23:17 4.0 I&O- Last 24 Hours up to 6 AM 07/27/19 06:00 Intake Total 1872.8 ml Output Total 1725 ml Balance 147.8 ml CARLOS ROSE MD Jul 27, 2019 10:07
[2019-07-27] MEDS: HumaLOG INSULIN (NovoLOG) PER UNIT SC SCH (18:00)
[2019-07-27] MEDS ORDERED: DEXTROSE 50% 50 ML SYRINGE IV PRN (19:15)
[2019-07-27] MEDS ORDERED: GLUCOSE 4 GM CHEW TABLET PO PRN (19:15)
[2019-07-27] MEDS ORDERED: GLUCAGON FOR INJ 1 MG VIAL (J1610) SC PRN (19:15)
[2019-07-27] MEDS ORDERED: REFRIGERATOR IV KEYS XX PRN (22:00)
[2019-07-28] VITALS (29 sets, daily range): BP systolic 101–137; BP diastolic 55–90
[2019-07-28] MEDS: diphenhydrAMINE INJ 50MG/ML VIAL (J1200) IV SCH ×4 (00:10→18:17)
[2019-07-28] MEDS: methylPREDNISolone INJ 125 MG/2 ML VIAL (J2930) IV SCH ×4 (00:10→18:17)
[2019-07-28] MEDS: FAMOTIDINE IV BAG 20 MG in IV 1 EA IV SCH ×2 (00:10→12:16)
[2019-07-28] MEDS: HumaLOG INSULIN (NovoLOG) PER UNIT SC SCH ×4 (00:11→18:17)
[2019-07-28] MEDS: D5W/0.45% SODIUM CHLORIDE 1,000 ML IV SCH ×3 (00:11→20:55)
[2019-07-28] MEDS: MORPHINE 4 MG/ML 1ML VIAL/SYRINGE (J2270) IV PRN ×3 (00:23→20:36)
[2019-07-28] MEDS: PROPOFOL 1,000 MG in IV 1 EA IV SCH ×5 (04:10→20:56)
[2019-07-28] MEDS: MIDAZOLAM HCL 100 MG in D5W 80 ML IV SCH ×2 (05:02→15:45)
[2019-07-28 05:57] LABS: ABG BASE EXCESS 1.3 (-2.0-2.0); ABG HCO3 25.9 MEQ/L (22.0-26.0); ABG O2 SATURATION 96.3 % (95.0-99.0); ABG PARTIAL PRESSURE CO2 41.3 mmHg (35.0-45.0); ABG PARTIAL PRESSURE O2 82.8 mmHg (75.0-100.0); ABG STANDARD HCO3 25.6 MEQ/L (22.0-26.0); ABG TOTAL CO2 27.2 MEQ/L (22.0-29.0); ABG pH (ARTERIAL) 7.416 UNITS (7.350-7.450)
[2019-07-28] MEDS: IPRATROPIUM 0.5MG/ALBUTEROL 2.5MG INH SOL UD 3ML (DUONEB)(J7620) NEB SCH ×4 (07:23→19:57)
[2019-07-28] MEDS: MIDAZOLAM INJ 2 MG/2 ML VIAL (J2250) IV PRN ×2 (08:50→12:15)
[2019-07-28 09:30] LABS: HEMATOCRIT 35.2 % (42.0-52.0); HEMOGLOBIN 11.7 g/dl (13.5-17.5); MEAN CORPUSCULAR HEMOGLOBIN 29.5 pg (27.0-33.0); MEAN CORPUSCULAR HGB CONC 33.2 g/dl (32.0-36.5); MEAN CORPUSCULAR VOLUME 88.9 fl (80.0-96.0); PLATELET COUNT, AUTOMATED 166 10^3/uL (150-450); RED BLOOD COUNT 3.96 10^6/uL (4.30-6.10); WHITE BLOOD COUNT 11.4 10^3/uL (4.0-10.0)
[2019-07-28 09:53] LABS: LYMPHOCYTES 8 % (16-44); MONOCYTES 1 % (0-5); NEUTROPHILS 91 % (28-66); PLATELET ESTIMATE NORMAL (NORMAL)
--- NOTE | 2019-07-28 10:00 | REP ---
CHEST, SINGLE VIEW: Signal view of the chest is performed and compared to a prior study of 07/27/2019. Tracheostomy tube is unchanged. There is blunting and left costophrenic angle, which may represent small left effusion. There is mild bibasilar atelectasis/infiltrate which is new. Electronically Signed by Reji Amado MD 07/29/2019 05:27 P
[2019-07-28 10:01] LABS: ALBUMIN 2.7 GM/DL (3.2-5.2); ALT/SGPT 20 U/L (12-78); BILIRUBIN,TOTAL 0.3 MG/DL (0.2-1.0); BLOOD UREA NITROGEN 10 MG/DL (7-18); CALCIUM LEVEL 8.1 MG/DL (8.5-10.1); CARBON DIOXIDE LEVEL 28 MEQ/L (21-32); CHLORIDE LEVEL 106 MEQ/L (98-107); GLOMERULAR FILTRATION RATE > 60.0 (>56); GLUCOSE, FASTING 170 MG/DL (70-100); POTASSIUM SERUM 3.9 MEQ/L (3.5-5.1); SODIUM LEVEL 138 MEQ/L (136-145); TOTAL PROTEIN 5.9 GM/DL (6.4-8.2)
--- NOTE | 2019-07-28 11:41 | CCN ---
DATE OF SERVICE: 07/28/2019 Mr. Thayer is seen in the ICU. He remains mechanically ventilated. Nursing denies any issues overnight. The patient has been afebrile but does appear a little diaphoretic this morning. Nursing does note that his overall facial edema has decreased compared to yesterday and his tongue is now in his mouth. He does have a cricothyrotomy in place. PHYSICAL EXAMINATION VITALS: Temperature 98.5, pulse 86, respiratory rate 16, blood pressure 108/55, pulse ox 95%. The patient is on volume control mechanical ventilation with tidal volume of 480, a rate of 14 and PEEP of 5, FIO2 of 40. GENERAL: The patient is sedate. He does not follow commands. He does move his arms somewhat, he is somewhat resistant to oral exam. HEENT: Sclera is clear. Pupils are reactive. Tongue is enlarged but has decreased in size. NECK: Neck is supple. No tracheal deviation. There is a cricothyrotomy in place and secured by neck straps. No cervical lymphadenopathy. HEART: Regular rate and rhythm. S1-S2. No murmurs. PULMONARY: Clear to auscultation bilaterally. No wheezes, rales or rhonchi. No accessory muscle use. ABDOMEN: Positive bowel sounds, soft, nontender. No obvious hepatosplenomegaly. No rebound or guarding. EXTREMITIES: No clubbing, cyanosis or edema. SKIN: Warm and dry. NEURO: The patient is currently sedated. Does not follow commands. LABORATORIES: WBC 11.4, hemoglobin 11.7, hematocrit 35.2, platelets 166. Sodium 138, potassium 3.9, chloride 106, carbon dioxide 28, BUN 10, creatinine 0.70, glucose 170, calcium 8.1, total bili 0.3, AST 13, ALT 20, alk phos 49, total protein 5.9, albumin 2.7. Chest x-ray shows new blunting of the left costophrenic angle. Tracheostomy tube in place. Elevated left hemidiaphragm. ASSESSMENT/PLAN: 1. Upper airway obstruction with tongue edema thought to be secondary to a possible angioedema. The patient has a cricothyrotomy in place. He is being followed by ENT. There was thoughts that he has angioedema caused by possible KHADIJAH inhibitor, which has been discontinued. Currently labs for C1 esterase inhibitor pending, to rule out acquired angioedema. The patient is getting Benadryl. He is on Solu-Medrol. 2. Leukocytosis. The patient's white blood cell count is up to 11.4 from 6.7 yesterday. Leukocytosis possibly due to the steroids; however, infection cannot be ruled out. The patient's chest x-ray does show some increased blunting of left costophrenic angle which in combination with the leukocytosis which in combination with leukocytosis may be indicative of an infection. Therefore, the patient will be started on ceftriaxone. We will continue to follow the white count and may consider deescalating antibiotic therapy down the road a little. 3. Alcohol withdrawal. The patient is on as needed benzodiazepines. Continue to monitor. 4. Emphysema. The patient is getting DuoNebs. 5. History of coronary artery disease. The patient's antiplatelet therapy has been held. Will see what ENT plans to do. If no procedure is likely then would consider adding back the antiplatelet therapy. Total critical care time, excluding all procedures, was 46 minutes.
[2019-07-28] MEDS: cefTRIAXone SOD 1 GM in D5W MINI-BAG PLUS 50 ML IV SCH (12:15)
[2019-07-28] MEDS: CHLORHEXIDINE GLUCONATE 0.12 % 15ML UDC (PERIDEX ORAL RINSE) MT SCH ×2 (12:18→20:55)
[2019-07-28] MEDS: ENOXAPARIN 40 MG/0.4 ML SYRINGE (J1650) SC SCH (12:19)
[2019-07-28] MEDS ORDERED: MIDAZOLAM INJ 2 MG/2 ML VIAL (J2250) IV STA (12:34)
[2019-07-28] MEDS ORDERED: MIDAZOLAM INJ 5 MG/ML VIAL (J2250) As Ordered ONE (12:36)
[2019-07-28 14:29] LABS: ABG BASE EXCESS 1.9 (-2.0-2.0); ABG HCO3 25.4 MEQ/L (22.0-26.0); ABG O2 SATURATION 93.8 % (95.0-99.0); ABG PARTIAL PRESSURE CO2 35.8 mmHg (35.0-45.0); ABG PARTIAL PRESSURE O2 64.3 mmHg (75.0-100.0); ABG STANDARD HCO3 26.1 MEQ/L (22.0-26.0); ABG TOTAL CO2 26.5 MEQ/L (22.0-29.0); ABG pH (ARTERIAL) 7.469 UNITS (7.350-7.450)
[2019-07-29] VITALS (14 sets, daily range): BP systolic 113–163; BP diastolic 65–94
[2019-07-29] MEDS: PROPOFOL 1,000 MG in IV 1 EA IV SCH ×3 (00:17→08:48)
[2019-07-29] MEDS: FAMOTIDINE IV BAG 20 MG in IV 1 EA IV SCH ×2 (00:18→12:34)
[2019-07-29] MEDS: methylPREDNISolone INJ 125 MG/2 ML VIAL (J2930) IV SCH ×4 (00:18→18:23)
[2019-07-29] MEDS: HumaLOG INSULIN (NovoLOG) PER UNIT SC SCH ×4 (00:18→18:23)
[2019-07-29] MEDS: diphenhydrAMINE INJ 50MG/ML VIAL (J1200) IV SCH ×4 (00:18→18:33)
[2019-07-29] MEDS: MIDAZOLAM HCL 100 MG in D5W 80 ML IV SCH ×2 (00:51→10:29)
[2019-07-29] MEDS: MORPHINE 4 MG/ML 1ML VIAL/SYRINGE (J2270) IV PRN ×5 (02:53→22:02)
[2019-07-29 05:14] LABS: BASO % 0.1 % (0.0-1.0); HEMATOCRIT 35.9 % (42.0-52.0); HEMOGLOBIN 11.6 g/dl (13.5-17.5); LYMPH # 0.5 10^3/uL (1.5-5.0); LYMPH % 5.7 % (24.0-44.0); MEAN CORPUSCULAR HGB CONC 32.3 g/dl (32.0-36.5); MEAN CORPUSCULAR VOLUME 92.8 fl (80.0-96.0); MONO # 0.4 10^3/uL (0.0-0.8); MONO % 4.4 % (0.0-5.0); NEUTROPHILS # 7.1 10^3/uL (1.5-8.5); NEUTROPHILS % 89.3 % (36.0-66.0); PLATELET COUNT, AUTOMATED 126 10^3/uL (150-450); RED BLOOD COUNT 3.87 10^6/uL (4.30-6.10)
[2019-07-29 05:44] LABS: ALBUMIN 2.4 GM/DL (3.2-5.2); ALT/SGPT 17 U/L (12-78); BILIRUBIN,TOTAL 0.2 MG/DL (0.2-1.0); BLOOD UREA NITROGEN 11 MG/DL (7-18); CARBON DIOXIDE LEVEL 27 MEQ/L (21-32); CHLORIDE LEVEL 108 MEQ/L (98-107); CREATININE FOR GFR 0.61 MG/DL (0.70-1.30); GLOMERULAR FILTRATION RATE > 60.0 (>56); GLUCOSE, FASTING 144 MG/DL (70-100); POTASSIUM SERUM 4.2 MEQ/L (3.5-5.1); SODIUM LEVEL 139 MEQ/L (136-145); TOTAL PROTEIN 5.9 GM/DL (6.4-8.2)
[2019-07-29 05:59] LABS: ABG HCO3 25.6 MEQ/L (22.0-26.0); ABG O2 SATURATION 98.2 % (95.0-99.0); ABG PARTIAL PRESSURE CO2 40.4 mmHg (35.0-45.0); ABG PARTIAL PRESSURE O2 112.6 mmHg (75.0-100.0); ABG STANDARD HCO3 25.4 MEQ/L (22.0-26.0); ABG TOTAL CO2 26.8 MEQ/L (22.0-29.0); ABG pH (ARTERIAL) 7.419 UNITS (7.350-7.450)
[2019-07-29] MEDS: IPRATROPIUM 0.5MG/ALBUTEROL 2.5MG INH SOL UD 3ML (DUONEB)(J7620) NEB SCH ×4 (07:54→20:23)
[2019-07-29] MEDS: CHLORHEXIDINE GLUCONATE 0.12 % 15ML UDC (PERIDEX ORAL RINSE) MT SCH (08:48)
[2019-07-29] MEDS: ENOXAPARIN 40 MG/0.4 ML SYRINGE (J1650) SC SCH (08:49)
[2019-07-29] MEDS: D5W/0.45% SODIUM CHLORIDE 1,000 ML IV SCH ×2 (09:05→20:35)
--- NOTE | 2019-07-29 10:04 | REP ---
CHEST, SINGLE VIEW: Single view of the chest is performed and compared to prior study of 07/28/2019. Tracheostomy tube remains in place. Medial right basilar opacity is stable. Density along the left hemidiaphragm has improved somewhat. There is new subsegmental atelectatic change in the adjacent left lung base. Heart and mediastinum are unchanged. Electronically Signed by Reji Amado MD 07/30/2019 11:41 A
[2019-07-29] MEDS: MIDAZOLAM INJ 2 MG/2 ML VIAL (J2250) IV PRN (10:26)
--- NOTE | 2019-07-29 10:51 | CCN ---
DATE: 07/29/2019. Mr. Aguilar she was seen in the intensive care unit (ICU). The patient remains mechanically ventilated. Nursing denies any significant issues overnight. PHYSICAL EXAMINATION: Vitals: Temperature is 96.5, pulse 83, respiratory rate 30, blood pressure 166/89, pulse ox 98%. The patient is on ventilator, pressure support, FIO2 is 40. General: Patient is sedate. He does not follow commands. HEENT: Head is normocephalic, atraumatic. Tongue is enlarged. Neck: Neck is supple. No tracheal deviation. Cricothyrotomy in place and secured by neck straps. No cervical lymphadenopathy. Heart: Regular rate and rhythm. S1, S2. No murmurs. Pulmonary: Clear to auscultation bilaterally. No wheezes, rales or rhonchi. No accessory muscle use. Abdomen: Positive bowel sounds, soft, nontender. No rebound or guarding. No obvious organomegaly. Extremities: No clubbing, cyanosis or edema. Skin: Skin is warm and dry. LABORATORY DATA: WBC 8.0, hemoglobin 11.6, hematocrit 35.9, platelets 126. Sodium 139, potassium 4.2, chloride 108, carbon dioxide 27, BUN 11, creatinine 0.61, glucose 144, calcium 8.0, total bili 0.2, AST 13, ALT 17, alk phos 40, total protein 5.9, albumin 2.4. ABG: pH 7.419, pCO2 40.4, pO2 112.6. Chest x-ray was reviewed and shows a tracheostomy tube in place. Improvement to the left basilar density. ASSESSMENT/PLAN: 1. Upper airway obstruction with tongue edema, likely secondary to angioedema. The patient remains on mechanical ventilation with cricothyrotomy in place. He has been seen by ENT, we are awaiting their thoughts on any further surgical procedures. The thought remains that he has angioedema caused by possible KHADIJAH inhibitor use. KHADIJAH inhibitor has been discontinued. We are currently awaiting C1 esterase inhibitor labs to rule out acquired angioedema. He is on Benadryl and Solu-Medrol. 2. Abnormal chest x-ray. Concern of a pulmonary infection based on blunting of left costophrenic angle on chest x-ray, which does appear to be somewhat improved today. The patient was started on ceftriaxone. His white count is actually down today. We will continue to monitor. 3. Alcohol withdrawal. The patient is on benzodiazepines as needed. Continue to monitor. 4. Emphysema. The patient is getting DuoNebs. 5. History of coronary artery disease. The patient's antiplatelet therapy has been held and consideration of any additional ENT surgeries that may be considered. W will continue to try to see with the ENT plans are. If no procedure is likely then would consider adding back the antiplatelet therapy.
--- NOTE | 2019-07-29 11:59 | IPNPDOC ---
Text Note Date of Service The patient was seen on 07/29/19. NOTE ENT [place]ress noted and airway is maintained. Continuing to medically mangage his angioedema Attempted FFL, but secretions were overwhelming and could not really assess state of supraglottis and larynx Recommend repeat exam in 24 to 48 hours but I would begin to wean him off v entilator assuming nomral lung function Get him awake and alert with airway secure. Sitting upright will help with edema Another option would be to repeat CT but since he has been recumbent and sedat ed, it may look the same. Will recheck in 24 hours. VS,Fishbone, I+O VS, Fishbone, I+O Laboratory Tests 07/29/19 04:56 Vital Signs Date Time Temp Pulse Resp B/P (MAP) Pulse Ox O2 Delivery O2 Flow Rate FiO2 07/29/19 11:24 70 10 07/29/19 10:32 157/87 07/29/19 10:29 97 Ventilator 07/29/19 09:34 40 07/29/19 09:00 96.5 07/26/19 23:17 4.0 I&O- Last 24 Hours up to 6 AM 07/29/19 06:00 Intake Total 2330 ml Output Total 1930 ml Balance 400 ml CARLOS ROSE MD Jul 29, 2019 11:59
[2019-07-29] MEDS: cefTRIAXone SOD 1 GM in D5W MINI-BAG PLUS 50 ML IV SCH (12:11)
[2019-07-29] MEDS ORDERED: MIDAZOLAM INJ 2 MG/2 ML VIAL (J2250) IV PRN (12:45)
[2019-07-29] MEDS: MIDAZOLAM INJ 2 MG/2 ML VIAL (J2250) IV SCH ×3 (13:27→20:49)
[2019-07-30] VITALS (15 sets, daily range): BP systolic 139–190; BP diastolic 75–108; O2SAT 91
[2019-07-30] MEDS: methylPREDNISolone INJ 125 MG/2 ML VIAL (J2930) IV SCH ×5 (00:31→23:50)
[2019-07-30] MEDS: MORPHINE 4 MG/ML 1ML VIAL/SYRINGE (J2270) IV PRN ×9 (00:32→23:50)
[2019-07-30] MEDS: diphenhydrAMINE INJ 50MG/ML VIAL (J1200) IV SCH ×4 (01:53→18:07)
[2019-07-30] MEDS: MIDAZOLAM INJ 2 MG/2 ML VIAL (J2250) IV SCH ×6 (01:54→21:26)
[2019-07-30] MEDS: FAMOTIDINE IV BAG 20 MG in IV 1 EA IV SCH ×2 (01:54→12:35)
[2019-07-30 05:09] LABS: BASO % 0.1 % (0.0-1.0); HEMATOCRIT 36.2 % (42.0-52.0); HEMOGLOBIN 11.7 g/dl (13.5-17.5); LYMPH # 0.5 10^3/uL (1.5-5.0); LYMPH % 4.4 % (24.0-44.0); MEAN CORPUSCULAR HGB CONC 32.3 g/dl (32.0-36.5); MEAN CORPUSCULAR VOLUME 89.6 fl (80.0-96.0); MONO # 0.5 10^3/uL (0.0-0.8); MONO % 4.5 % (0.0-5.0); NEUTROPHILS # 9.5 10^3/uL (1.5-8.5); NEUTROPHILS % 90.2 % (36.0-66.0); PLATELET COUNT, AUTOMATED 147 10^3/uL (150-450); RED BLOOD COUNT 4.04 10^6/uL (4.30-6.10); WHITE BLOOD COUNT 10.5 10^3/uL (4.0-10.0)
[2019-07-30 05:31] LABS: ALBUMIN 2.5 GM/DL (3.2-5.2); ALT/SGPT 22 U/L (12-78); BILIRUBIN,TOTAL 0.3 MG/DL (0.2-1.0); BLOOD UREA NITROGEN 19 MG/DL (7-18); CALCIUM LEVEL 8.2 MG/DL (8.5-10.1); CARBON DIOXIDE LEVEL 30 MEQ/L (21-32); CHLORIDE LEVEL 107 MEQ/L (98-107); CREATININE FOR GFR 0.67 MG/DL (0.70-1.30); GLOMERULAR FILTRATION RATE > 60.0 (>56); GLUCOSE, FASTING 102 MG/DL (70-100); POTASSIUM SERUM 4.6 MEQ/L (3.5-5.1); SODIUM LEVEL 140 MEQ/L (136-145)
[2019-07-30 05:55] LABS: ABG HCO3 27.4 MEQ/L (22.0-26.0); ABG O2 SATURATION 94.7 % (95.0-99.0); ABG PARTIAL PRESSURE O2 79.1 mmHg (75.0-100.0); ABG STANDARD HCO3 26.1 MEQ/L (22.0-26.0); ABG TOTAL CO2 28.8 MEQ/L (22.0-29.0); ABG pH (ARTERIAL) 7.393 UNITS (7.350-7.450)
[2019-07-30] MEDS: HumaLOG INSULIN (NovoLOG) PER UNIT SC SCH ×5 (06:00→23:44)
[2019-07-30] MEDS: IPRATROPIUM 0.5MG/ALBUTEROL 2.5MG INH SOL UD 3ML (DUONEB)(J7620) NEB SCH ×4 (07:26→19:25)
[2019-07-30] MEDS: ENOXAPARIN 40 MG/0.4 ML SYRINGE (J1650) SC SCH (08:33)
[2019-07-30] MEDS: D5W/0.45% SODIUM CHLORIDE 1,000 ML IV SCH ×2 (08:51→21:26)
--- NOTE | 2019-07-30 11:40 | IPN ---
DATE: 07/30/2019 The patient did have mucus plugging overnight, was placed back on pressure support ventilation. Upon my review, however it appears that his cuff was not deflated after being placed off mechanical ventilation. After being on pressure support ventilation the patient states he felt better. At bedside I did take him off mechanical ventilation and deflated his cuff. He was, with occluding the cric, able to verbalize words. It does appear that he is passing air even though he does not have a fenestrated cannula. He does not have any shortness of breath. He still has cold quite a good cough with copious amounts of thin white secretions. PHYSICAL EXAMINATION: He has no other complaints other than coughing and the episodes of mucus plugging that make him feel short of breath. Temperature is 97.2, pulse is 92. Right respiratory rate is 21, blood pressure is 139/81 with a mean arterial pressure of 100, oxygen saturation is 99% on 0.50 FIO2. Intake and output 1041 in, 2951 out, net negative 1901 yesterday. GENERAL: Awake, alert and oriented. Able to follow commands. Able to communicate. Does not appear in any distress. No diaphoresis. No evidence of withdrawal, but does remain on Versed scheduled. HEENT: Sclerae clear and anicteric. Pupils equal and reactive to light. Mucous membranes moist without lesions. Tongue is definitely decreased in size. I am able to view some of the posterior pharynx. NECK: Neck is supple. No tracheal deviation. Cric is in place without surrounding erythema or exudate. Again, copious amounts of clear secretions. LYMPH: No cervical, supraclavicular or axillary adenopathy. CARDIAC: Regular S1 and S2 without audible murmur, rub or gallop. No elevated JVP. No systemic edema. PULMONARY: Diffuse rhonchi without rales or wheeze. No dullness to percussion. No accessory muscle use. ABDOMEN: Soft, nontender, nondistended. No hepatosplenomegaly. No masses or hernia. EXTREMITIES: No cyanosis, clubbing or edema. Laboratory evaluation shows a white blood cell count of 10.4, hemoglobin 11.7, platelet count of 147. Sodium is 140, potassium 4.6, chloride 107, bicarb of 30, BUN of 19, creatinine of 0.67. Arterial blood gas this morning shows a pH of 7.39, pCO2 of 46, PaO2 of 79. Chest x-ray this morning does show some right middle lobe infiltrate likely from mucus congestion. No evidence of pneumothorax. Cric in place. Some air in the stomach. IMPRESSION: 1. Respiratory failure from thought to be angioedema triggered by a tongue trauma. C1 esterase still pending. Likely KHADIJAH inhibitor induced. At this point in time he appears closer to decannulation. Trying Passy-Maida valve over the cric today. Despite it not being fenestrated he is able to verbalize well and does not have shortness of breath with it. He has no new symptoms. No signs of infection. Ceftriaxone was placed more for prophylaxis due to the fact that it was placed during an urgent situation and during a time where there was trauma to the tongue. Will likely discontinue this in the next couple days. Will decrease Solu-Medrol to 60 mg every 6 hours. Continue to taper as tolerated. 2. Leukocytosis. Likely steroid induced. Very mild elevation in white blood cell count. 3. Alcohol abuse. No signs of alcohol withdrawal right now, but is on scheduled IV Versed. This can be converted to p.o. when he has a more appropriate airway and is allowed to swallow. At this point in time, I have not been able to provide him with any p.o. meds or any nutrition. 4. Deep vein thrombosis (DVT) prophylaxis with Lovenox. Gastrointestinal (GI) prophylaxis with famotidine.
[2019-07-30] MEDS: cefTRIAXone SOD 1 GM in D5W MINI-BAG PLUS 50 ML IV SCH (12:17)
[2019-07-30] MEDS ORDERED: MORPHINE 4 MG/ML 1ML VIAL/SYRINGE (J2270) IV ONE (20:45)
--- NOTE | 2019-07-30 23:23 | REP ---
Single view chest: 07/30/2019. Indication: Dyspnea. Comparison: Yesterday. Findings: There is more conspicuous air space consolidation of the right lower lobe. There is no pleural effusion or pneumothorax. Tracheostomy tube remains similarly positioned. There is no cardiomegaly. Minimal left lower lobe atelectasis is redemonstrated. Impression: Right lower lobe pneumonia. Otherwise unchanged exam compared to yesterday. Electronically Signed by Floyd Estrada DO 07/30/2019 09:16 A
[2019-07-31] VITALS (8 sets, daily range): BP systolic 139–184; BP diastolic 83–101
[2019-07-31] MEDS: diphenhydrAMINE INJ 50MG/ML VIAL (J1200) IV SCH ×2 (00:53→06:01)
[2019-07-31] MEDS: MIDAZOLAM INJ 2 MG/2 ML VIAL (J2250) IV SCH ×3 (00:53→08:39)
[2019-07-31] MEDS: FAMOTIDINE IV BAG 20 MG in IV 1 EA IV SCH (00:53)
[2019-07-31] MEDS: MORPHINE 4 MG/ML 1ML VIAL/SYRINGE (J2270) IV PRN ×3 (03:39→08:37)
[2019-07-31 05:00] LABS: BASO % 0.1 % (0.0-1.0); HEMATOCRIT 36.3 % (42.0-52.0); HEMOGLOBIN 12.2 g/dl (13.5-17.5); LYMPH # 0.5 10^3/uL (1.5-5.0); LYMPH % 4.8 % (24.0-44.0); MEAN CORPUSCULAR HEMOGLOBIN 29.7 pg (27.0-33.0); MEAN CORPUSCULAR HGB CONC 33.6 g/dl (32.0-36.5); MEAN CORPUSCULAR VOLUME 88.3 fl (80.0-96.0); MONO # 0.5 10^3/uL (0.0-0.8); MONO % 4.9 % (0.0-5.0); NEUTROPHILS # 8.5 10^3/uL (1.5-8.5); NEUTROPHILS % 89.8 % (36.0-66.0); PLATELET COUNT, AUTOMATED 142 10^3/uL (150-450); RED BLOOD COUNT 4.11 10^6/uL (4.30-6.10); WHITE BLOOD COUNT 9.5 10^3/uL (4.0-10.0)
[2019-07-31 05:31] LABS: ALBUMIN 2.5 GM/DL (3.2-5.2); ALT/SGPT 19 U/L (12-78); BILIRUBIN,TOTAL 0.5 MG/DL (0.2-1.0); BLOOD UREA NITROGEN 22 MG/DL (7-18); CALCIUM LEVEL 8.1 MG/DL (8.5-10.1); CARBON DIOXIDE LEVEL 30 MEQ/L (21-32); CHLORIDE LEVEL 104 MEQ/L (98-107); CREATININE FOR GFR 0.61 MG/DL (0.70-1.30); GLOMERULAR FILTRATION RATE > 60.0 (>56); GLUCOSE, FASTING 100 MG/DL (70-100); POTASSIUM SERUM 4.7 MEQ/L (3.5-5.1); SODIUM LEVEL 138 MEQ/L (136-145); TOTAL PROTEIN 6.2 GM/DL (6.4-8.2)
[2019-07-31] MEDS: HumaLOG INSULIN (NovoLOG) PER UNIT SC SCH (05:44)
[2019-07-31 05:56] LABS: ABG BASE EXCESS 3.4 (-2.0-2.0); ABG HCO3 27.7 MEQ/L (22.0-26.0); ABG O2 SATURATION 95.9 % (95.0-99.0); ABG PARTIAL PRESSURE CO2 41.4 mmHg (35.0-45.0); ABG PARTIAL PRESSURE O2 83.3 mmHg (75.0-100.0); ABG STANDARD HCO3 27.4 MEQ/L (22.0-26.0); ABG pH (ARTERIAL) 7.444 UNITS (7.350-7.450)
[2019-07-31] MEDS: methylPREDNISolone INJ 125 MG/2 ML VIAL (J2930) IV SCH (06:01)
[2019-07-31] MEDS: IPRATROPIUM 0.5MG/ALBUTEROL 2.5MG INH SOL UD 3ML (DUONEB)(J7620) NEB SCH ×4 (07:48→19:22)
--- NOTE | 2019-07-31 08:09 | REP ---
Single view chest: 07/31/2019. Indication: Dyspnea. Comparison: Yesterday. Findings: Poor inspiratory result is present. Bibasilar atelectasis is noted more pronounced on the left. There is improved aeration of the right lower lobe. Tracheostomy is again noted. Cardiomediastinal silhouette is stable. There is no pneumothorax. No significant pleural effusion is present. Impression: Mildly improved aeration of the right lower lobe. Left greater than right atelectasis. Electronically Signed by Floyd Estrada DO 07/31/2019 08:00 A
[2019-07-31] MEDS: ENOXAPARIN 40 MG/0.4 ML SYRINGE (J1650) SC SCH (08:35)
--- NOTE | 2019-07-31 09:52 | CCN ---
DATE: 07/31/2019 Mr. Thayer is seen in the ICU. He has a cricothyrotomy in place. A Passy-Justin valve has been placed. The patient was taken off the ventilator yesterday and is continuing to do well. He is still requiring oxygen by nasal cannula. Nursing reports he is doing well without any new issues. He is taking some sips and tolerating that. He has been afebrile. He has been getting scheduled Versed for the possibility of withdrawal symptoms, but no significant withdrawal symptoms. PHYSICAL EXAMINATION: Temperature 98.0, pulse 98, respiratory rate 16, blood pressure currently is 178/100. Pulse oximetry 95% on 3 liters oxygen by nasal cannula. General: Patient is alert and oriented. He is speaking in complete sentences. He is taking sips and tolerating. HEENT: Head is normocephalic, atraumatic. Sclera is clear. Pupils are equal and reactive to light. Mucous membranes are moist. Tongue is decreased in size. Posterior pharynx is able to be viewed and is clear with no erythema. Neck: Neck is supple. Cric is in place without any surrounding erythema or edema. No tracheal deviation. No cervical lymphadenopathy. Heart: Regular rate and rhythm. S1, S2. No murmurs. Pulmonary: Clear to auscultation bilaterally. No wheezes, rales or rhonchi. Abdomen: Soft and nontender, positive bowel sounds. Extremities: No clubbing, cyanosis or edema. LABORATORIES: WBC 9.5, hemoglobin 12.2, hematocrit 36.3, platelets 142. Sodium 138, potassium 4.7, chloride 104, carbon dioxide 30, BUN 22, creatinine 0.61, glucose 100, calcium 8.1, total bili 0.5, AST 15, ALT 19, alk phos 48, total protein 6.2, albumin 2.5. Blood gas showed pH 7.44, pCO2 41.4, pO2 is 83.3. Chest x-ray does show some improvement of the right lower lobe. Still has some atelectasis at the bases bilaterally. Greater on the left. ASSESSMENT/PLAN: 1. Respiratory failure thought to be from angioedema triggered by tongue trauma. C1 esterase is still pending. This is felt to be likely KHADIJAH inhibitor induced as the patient had been previously on lisinopril. This has been discontinued and KHADIJAH inhibitors have been added to his allergy list. He had been using a Passy-Justin valve over the cric. The cric was removed today and the patient did well. Solu-Medrol will be discontinued. Ceftriaxone will be discontinued as his white count has normalized and no indication for infection. He will be able to be started back on his home oral medicines. He is still on supplemental oxygen and this will continue to be monitored. If he is tolerating room air, possibly could be considered for discharge tomorrow. At this point, pulmonary team will sign off and transfer him to the hospitalist service. 2. Alcohol abuse. No signs of alcohol withdrawal. He has been on scheduled IV Versed. Now that he can tolerate oral medications he will be switched to oral Serax. 3. Hypertension. The patient will be started back up on his home dose of amlodipine 5 mg daily. He cannot be placed back on KHADIJAH inhibitors due to the angioedema. We will start him on some metoprolol tartrate 12.5 mg twice a day. Hold parameters have been placed on both of the antihypertensive medications. 4. Chronic pain. The patient will be placed on his home doses of morphine sulfate 15 mg twice a day and hydrocodone. 5. Coronary artery disease. The patient will be started back up on his home dose of clopidogrel. He and his confirm that he was changed from Brilinta to clopidogrel a few weeks ago by his scout professional sports. He will be placed back on his home dose of clopidogrel 75 mg daily. The patient will be transferred to the hospitalist service.
[2019-07-31] MEDS: CitaloPRAM (CeleXA) 20 MG TAB PO SCH (09:58)
[2019-07-31] MEDS: METOPROLOL TART 12.5 MG PER 1/2 TAB PO SCH ×2 (09:58→19:55)
[2019-07-31] MEDS: CLOPIDOGREL 75 MG TAB PO SCH (09:59)
[2019-07-31] MEDS: amLODIPine 5 MG TAB PO SCH (09:59)
[2019-07-31] MEDS: PANTOPRAZOLE 40MG TAB (PROTONIX) PO SCH ×2 (09:59→19:56)
[2019-07-31] MEDS ORDERED: OXAZEPAM 15 MG CAP PO ONE (10:00)
[2019-07-31] MEDS: MORPHINE 15 MG SA TAB PO SCH ×2 (10:05→19:56)
--- NOTE | 2019-07-31 11:25 | IPNPDOC ---
Text Note Date of Service The patient was seen on 07/31/19. NOTE ENT Patients progress noted. Tube was removed prior to my visit, so my services not required at this time. Keep wound covered with dressing. He can follow up with us in clinic. VS,Fishbone, I+O VS, Fishbone, I+O Laboratory Tests 07/31/19 04:33 Vital Signs Date Time Temp Pulse Resp B/P (MAP) Pulse Ox O2 Delivery O2 Flow Rate FiO2 07/31/19 11:13 94 07/31/19 10:05 21 07/31/19 10:00 92 Room Air 07/31/19 09:59 159/89 07/31/19 09:00 2.0 07/31/19 07:00 97.0 50 I&O- Last 24 Hours up to 6 AM 07/31/19 06:00 Intake Total 1875 ml Output Total 2180 ml Balance -305 ml CARLOS ROSE MD Jul 31, 2019 11:25
--- NOTE | 2019-07-31 13:13 | IPNPDOC ---
Text Note Date of Service The patient was seen on 07/31/19. NOTE Mr. Thayer is seen in the ICU. Apparently the patient was brought to the hospital after he had an injury and after that developed angioedema. Initially intubation was tight but because of the edema. He had to undergo cricothyrotomy. As he improved A Passy-Simla valve has been placed. The patient was taken off the ventilator yesterday and is continuing to do well. He is still requiring oxygen by nasal cannula. He was on clear liquids and on my encounter wanted to eat more and his diet has been escalated to soft diet. PHYSICAL EXAMINATION: General: Patient is alert and oriented. He is speaking in complete sentences. HEENT: Head is normocephalic, atraumatic. Sclera is clear. Pupils are equal and reactive to light. Mucous membranes are moist. Tongue is decreased in size. Posterior pharynx is able to be viewed and is clear with no erythema. Neck: Neck is supple. Cric is in place without any surrounding erythema or edema. No tracheal deviation. No cervical lymphadenopathy. Heart: Regular rate and rhythm. S1, S2. No murmurs. Pulmonary: Clear to auscultation bilaterally. No wheezes, rales or rhonchi. Abdomen: Soft and nontender, positive bowel sounds. Extremities: No clubbing, cyanosis or edema. Chest x-ray does show some improvement of the right lower lobe. Still has some atelectasis at the bases bilaterally. Greater on the left. ASSESSMENT/PLAN: 1. Respiratory failure thought to be from angioedema triggered by tongue trauma. C1 esterase is still pending. This is felt to be likely KHADIJAH inhibitor induced as the patient had been previously on lisinopril. This has been discontinued and KHADIJAH inhibitors have been added to his allergy list. He had been using a Passy-Simla valve over the cric. The cric was removed today and the patient did well. Solu-Medrol was discontinued by pulmonary. He is still on supplemental oxygen and this will continue to be monitored. 2. Alcohol abuse. No signs of alcohol withdrawal. He has been on oral Serax. 3. Hypertension. The patient will be started back up on his home dose of amlodipine 5 mg daily. He cannot be placed back on KHADIJAH inhibitors due to the angioedema. He is on some metoprolol tartrate 12.5 mg twice a day. Hold parameters have been placed on both of the antihypertensive medications. 4. Chronic pain. The patient will be placed on his home doses of morphine sulfate 15 mg twice a day and hydrocodone. 5. Coronary artery disease. The patient will be started back up on his home dose of clopidogrel. He and his confirm that he was changed from Brilinta to clopidogrel a few weeks ago by his board stacker. He will be placed back on his home dose of clopidogrel 75 mg daily. Disposition. Likely home in the next 24-48 hours VS,Jessica, I+O VS, Nathane, I+O Laboratory Tests 07/31/19 04:33 Vital Signs Date Time Temp Pulse Resp B/P (MAP) Pulse Ox O2 Delivery O2 Flow Rate FiO2 07/31/19 11:13 94 07/31/19 10:05 21 07/31/19 10:00 92 Room Air 07/31/19 09:59 159/89 07/31/19 09:00 2.0 07/31/19 07:00 97.0 50 I&O- Last 24 Hours up to 6 AM 07/31/19 06:00 Intake Total 1875 ml Output Total 2180 ml Balance -305 ml ELI ORDONEZ MD Jul 31, 2019 13:13
[2019-07-31] MEDS: ANEXSIA, NORCO 7.5MG/325MG TABLET(HYDROCODONE/APAP) PO PRN ×2 (15:56→22:08)
[2019-07-31] MEDS: OXAZEPAM 15 MG CAP PO SCH (17:43)
[2019-07-31] MEDS ORDERED: PRAVASTATIN 20 MG TAB PO SCH (21:00)
[2019-08-01] VITALS: BP 128/85
[2019-08-01] MEDS: OXAZEPAM 15 MG CAP PO SCH ×2 (00:01→06:04)
[2019-08-01 04:00] VITALS: BP 163/92
[2019-08-01 04:33] LABS: BASO % 0.1 % (0.0-1.0); EOS # 0.1 10^3/uL (0.0-0.5); EOS % 0.7 % (0.0-3.0); HEMATOCRIT 40.5 % (42.0-52.0); LYMPH # 1.8 10^3/uL (1.5-5.0); LYMPH % 20.8 % (24.0-44.0); MEAN CORPUSCULAR HEMOGLOBIN 28.4 pg (27.0-33.0); MEAN CORPUSCULAR HGB CONC 32.1 g/dl (32.0-36.5); MEAN CORPUSCULAR VOLUME 88.6 fl (80.0-96.0); MONO # 0.8 10^3/uL (0.0-0.8); MONO % 8.7 % (0.0-5.0); NEUTROPHILS % 68.9 % (36.0-66.0); PLATELET COUNT, AUTOMATED 164 10^3/uL (150-450); RED BLOOD COUNT 4.57 10^6/uL (4.30-6.10); WHITE BLOOD COUNT 8.7 10^3/uL (4.0-10.0)
[2019-08-01 05:04] LABS: ALBUMIN 2.5 GM/DL (3.2-5.2); ALT/SGPT 22 U/L (12-78); BILIRUBIN,TOTAL 0.4 MG/DL (0.2-1.0); BLOOD UREA NITROGEN 20 MG/DL (7-18); CALCIUM LEVEL 8.1 MG/DL (8.5-10.1); CARBON DIOXIDE LEVEL 32 MEQ/L (21-32); CHLORIDE LEVEL 102 MEQ/L (98-107); GLOMERULAR FILTRATION RATE > 60.0 (>56); GLUCOSE, FASTING 92 MG/DL (70-100); POTASSIUM SERUM 3.7 MEQ/L (3.5-5.1); SODIUM LEVEL 138 MEQ/L (136-145); TOTAL PROTEIN 5.8 GM/DL (6.4-8.2)
[2019-08-01] MEDS: IPRATROPIUM 0.5MG/ALBUTEROL 2.5MG INH SOL UD 3ML (DUONEB)(J7620) NEB SCH ×2 (07:29→11:32)
[2019-08-01 08:00] VITALS: BP 161/97
[2019-08-01] MEDS: PANTOPRAZOLE 40MG TAB (PROTONIX) PO SCH (08:14)
[2019-08-01] MEDS: CitaloPRAM (CeleXA) 20 MG TAB PO SCH (08:14)
[2019-08-01] MEDS: ENOXAPARIN 40 MG/0.4 ML SYRINGE (J1650) SC SCH (08:14)
[2019-08-01] MEDS: METOPROLOL TART 12.5 MG PER 1/2 TAB PO SCH (08:14)
[2019-08-01 08:15] VITALS: BP 161/97
[2019-08-01] MEDS: CLOPIDOGREL 75 MG TAB PO SCH (08:15)
[2019-08-01] MEDS: MORPHINE 15 MG SA TAB PO SCH (08:15)
[2019-08-01] MEDS: amLODIPine 5 MG TAB PO SCH (08:15)
[2019-08-01] MEDS ORDERED: METO1TAB87 PO (11:10)
--- NOTE | 2019-08-01 11:23 | DS.PDOC ---
Discharge Summary General Date of Admission Jul 27, 2019 at 00:15 Date of Discharge 08/01/19 Discharge Summary Mr. Thayer is a 49-year-old male who had a reportedly bit his tongue and came to the emergency room after there was significant swelling, elective awake intubation was initiated. However, there was significant supraglottic edema. The emergency room physician was unable to have any viewing and ultimately the patient requires cricothyrotomy. The tongue is significantly enlarged and it wa s thought that the patient being on the KHDAIJAH inhibitor likely triggered an angioedema of the trauma. He was therefore treated with Solu-Medrol, Benadryl and fresh frozen plasma has been ordered. The patient does have a history of chronic trauma and falls based on his records in the emergency room. Mr. Thayer is seen in the ICU. Apparently the patient was brought to the hospital after he had an injury and after that developed angioedema. Initially intubation was tight but because of the edema. He had to undergo cricothyrotomy. As he improved A Passy-Maida valve has been placed. The patient was taken off the ventilator continuing to do well. His Respiratory failure thought to be from angioedema triggered by tongue trauma. C1 esterase is still pending, advised to follow up with PCP . This is felt to be likely KHADIJAH inhibitor induced as the patient had been previously on lisinopril. This has been discontinued and KHADIJAH inhibitors have been added to his allergy list. He had been using aPassy-[place] valve over the cric. The cric was removed and the patient did well. Solu- Medrol was discontinued by pulmonary. He is feeling fine and has been advised to follow with ENT within a week to have a look on his Cric. Dressing instructions as per ENT. For his hypertension The patient will be started back up on his home dose of amlodipine 5 mg daily. He cannot be placed back on KHADIJAH inhibitors due to the angioedema. He is on some metoprolol tartrate 12.5 mg twice a day and hasn't restored with the PCP for titration. He has been advised in detail and counseled for alcohol abuse. He also has been given all the information regarding angioedema along with KHADIJAH and on heparin inhibitors which she needs avoid at any cost and informed all the healthcare professionals take care of him regarding this. For his Coronary artery disease. The patient will be started back up on his home dose of clopidogrel. He and his confirm that he was changed from Brilinta to clopidogrel a few weeks ago by his costumed character entertainer. He will be placed back on his home dose of clopidogrel 75 mg daily. Laverne Fletcher to follow-up with cardiology as scheduled PHYSICAL EXAMINATION: General: Patient is alert and oriented. He is speaking in complete sentences. HEENT: Head is normocephalic, atraumatic. Sclera is clear. Pupils are equal and reactive to light. Mucous membranes are moist. Tongue is decreased in size. Posterior pharynx is able to be viewed and is clear with no erythema. Neck: Neck is supple. Cric is in place without any surrounding erythema or edema. No tracheal deviation. No cervical lymphadenopathy. Heart: Regular rate and rhythm. S1, S2. No murmurs. Pulmonary: Clear to auscultation bilaterally. No wheezes, rales or rhonchi. Abdomen: Soft and nontender, positive bowel sounds. Extremities: No clubbing, cyanosis or edema. Dictations. As per discharge reconciliation medication list Activity as tolerated Diet. 2 g sodium diet Follow-up appointments. PCP in 1 week, ENT in one week Condition on discharge. Patient is medically optimized for discharge Discharge disposition: Home Total time spent on this discharge including coordination of care, review of chart documentation and actual contact is around 35 minutes Vital Signs/I&Os Vital Signs Date Time Temp Pulse Resp B/P (MAP) Pulse Ox O2 Delivery O2 Flow Rate FiO2 08/01/19 08:15 12 08/01/19 08:15 72 161/97 08/01/19 08:00 97.0 92 Room Air 08/01/19 00:00 1.0 07/31/19 07:00 50 I&O- Last 24 Hours up to 6 AM 08/01/19 06:00 Intake Total 2990 ml Output Total 2625 ml Balance 365 ml Laboratory Data Labs 24H Laboratory Tests 2 08/01/19 04:15: Immature Granulocyte % (Auto) 0.8, Neutrophils (%) (Auto) 68.9H, Lymphocytes (%) (Auto) 20.8L, Monocytes (%) (Auto) 8.7H, Eosinophils (%) (Auto) 0.7, Basophils (%) (Auto) 0.1, Neutrophils # (Auto) 6.0, Lymphocytes # (Auto) 1.8, Monocytes # (Auto) 0.8, Eosinophils # (Auto) 0.1, Basophils # (Auto) 0.0, Nucleated Red Blood Cells % (auto) 0.0, Anion Gap 4L, Glomerular Filtration Rate > 60.0, Calcium Level 8.1L, Total Bilirubin 0.4, Aspartate Amino Transf (AST/SGOT) 14, Alanine Aminotransferase (ALT/SGPT) 22, Alkaline Phosphatase 49, Total Protein 5.8L, Albumin 2.5L, Albumin/Globulin Ratio 0.76L CBC/BMP Laboratory Tests 08/01/19 04:15 Discharge Medications Scheduled Amlodipine Besylate (Amlodipine Besylate) 5 Mg Tab, 5 MG PO DAILY, (Reported) DOSAGE INCREASED TO 10MG ON 07/25/2019, HAS NOT STARTED NEW DOSAGE Citalopram Hydrobromide (Citalopram HBr) 20 Mg Tab, 20 MG PO DAILY, (Reported) Clopidogrel Bisulfate (Clopidogrel) 75 Mg Tablet, 75 MG PO DAILY, (Reported) Metoprolol Tartrate (Metoprolol Tartrate) 25 Mg Tablet, 12.5 MG PO BID Morphine Sulfate (Morphine Sulfate ER) 15 Mg Tablet.er, 15 MG PO BID, (Reported) Pantoprazole Sodium (Pantoprazole Sodium) 40 Mg Tab, 40 MG PO BID, (Reported) Pravastatin Sodium (Pravastatin Sodium) 80 Mg Tab, 80 MG PO DAILY, (Reported) Sennosides/Docusate Sodium (Sm Senna-S Tablet) 1 Each Tablet, 1 TAB PO BID, (Reported) Scheduled PRN Albuterol Sulfate (Ventolin Hfa) 108 Mcg/Act Aer, 2 PUFF INH Q4H PRN for WHEEZING, (Reported) Hydrocodone/Acetaminophen (Hydrocodone-Acetamin 10-325 mg) 1 Each Tablet, 1 TAB PO Q8H PRN for PAIN, (Reported) Allergies Coded Allergies: KHADIJAH Inhibitors (Verified Allergy, Severe, angioedema, 07/31/19) bee venom protein (honey bee) (Verified Allergy, Severe, anaphylactic shock, 01/01/19) NSAIDS (Non-Steroidal Anti-Inflamma (Verified Allergy, Intermediate, hives, 01/01/19) Penicillins (Verified Allergy, Intermediate, hives, 01/01/19) aspirin (Verified Allergy, Intermediate, hives and nausea, 01/01/19) hydrochlorothiazide (Verified Allergy, Intermediate, rash, 01/01/19) chocolate flavor (Verified Allergy, Unknown, 01/01/19) ELI ORDONEZ MD Aug 01, 2019 11:12
[2019-08-01 11:42] VITALS: BP 141/87
[2019-08-04 14:15] LABS: C1 ESTER INHIB. NON FUNCTIONAL 29 mg/dL (21-39); C1 ESTERASE INHIB. FUNCTIONAL > 92 (.); COAGULATION FACTOR XII ACTIVIT 103 % (50-150)
== END 2019-08-01 12:55 | disposition home or self-care (01) | DRG 4 ==
LOC: M ED 22:23 → M ED INP 07-27 00:15 → M ICU 07-27 02:05
PROVIDERS: ADMIT Internal Medicine Pulmonary Disease; ATTEND Internal Medicine
PROC: 0B110F4 Bypass Trachea to Cutaneous with Tracheostomy Device, Open Approach (ICD-10-PCS; principal; 2019-07-27)
PROC: 5A1945Z Respiratory Ventilation, 24-96 Consecutive Hours (ICD-10-PCS; 2019-07-27)
PROC: 30233K1 Transfusion of Nonautologous Frozen Plasma into Peripheral Vein, Percutaneous Approach (ICD-10-PCS; 2019-07-27)
DX: T78.3XXA Angioneurotic edema, initial encounter (principal); J96.90 Respiratory failure, unspecified, unspecified whether with hypoxia or hypercapnia; J98.8 Other specified respiratory disorders; I25.10 Atherosclerotic heart disease of native coronary artery without angina pectoris; E78.5 Hyperlipidemia, unspecified; J43.9 Emphysema, unspecified; I10 Essential (primary) hypertension; D72.829 Elevated white blood cell count, unspecified; F10.10 Alcohol abuse, uncomplicated; F32.9 Major depressive disorder, single episode, unspecified; Y92.9 Unspecified place or not applicable; M54.9 Dorsalgia, unspecified; Z88.0 Allergy status to penicillin; Z88.8 Allergy status to other drugs, medicaments and biological substances; Z91.030 Bee allergy status; Z79.891 Long term (current) use of opiate analgesic; Z79.899 Other long term (current) drug therapy; S01.552A Open bite of oral cavity, initial encounter; X58.XXXA Exposure to other specified factors, initial encounter; G89.29 Other chronic pain; T46.4X5A Adverse effect of angiotensin-converting-enzyme inhibitors, initial encounter

== ENCOUNTER 2019-08-29 22:20 | Emergency (ER) | payer MEDICARE, MEDICAID ==
[~2019-08-29] VITALS: Ht 167.6 cm; Wt 82.7 kg
[~2019-08-29 22:20] MED LIST changes: +HYDR-4517 PO; +METO1TAB87 PO; +SM S1TAB6 PO
[2019-08-29 23:00] LABS: BASO # 0.1 10^3/uL (0.0-0.2); BASO % 0.6 % (0.0-1.0); EOS # 0.3 10^3/uL (0.0-0.5); EOS % 3.2 % (0.0-3.0); HEMATOCRIT 40.6 % (42.0-52.0); HEMOGLOBIN 12.9 g/dl (13.5-17.5); LYMPH # 2.9 10^3/uL (1.5-5.0); LYMPH % 34.5 % (24.0-44.0); MEAN CORPUSCULAR HEMOGLOBIN 27.6 pg (27.0-33.0); MEAN CORPUSCULAR HGB CONC 31.8 g/dl (32.0-36.5); MEAN CORPUSCULAR VOLUME 86.9 fl (80.0-96.0); MONO # 0.7 10^3/uL (0.0-0.8); MONO % 7.8 % (0.0-5.0); NEUTROPHILS # 4.5 10^3/uL (1.5-8.5); NEUTROPHILS % 53.4 % (36.0-66.0); PLATELET COUNT, AUTOMATED 214 10^3/uL (150-450); RED BLOOD COUNT 4.67 10^6/uL (4.30-6.10); WHITE BLOOD COUNT 8.4 10^3/uL (4.0-10.0)
[2019-08-29] MEDS ORDERED: ALBUTEROL SULFATE 2.5 MG/0.5 ML INH NEB SOLN NEB ONE (23:00)
[2019-08-29] MEDS ORDERED: methylPREDNISolone INJ 125 MG/2 ML VIAL (J2930) IV ONE (23:00)
[2019-08-29] MEDS ORDERED: MORPHINE 4 MG/ML 1ML VIAL/SYRINGE (J2270) IV ONE (23:00)
[2019-08-29] MEDS ORDERED: IPRATROPIUM 0.5MG/ALBUTEROL 2.5MG INH SOL UD 3ML (DUONEB)(J7620) NEB ONE (23:00)
--- NOTE | 2019-08-29 23:28 | REPVR ---
PROCEDURE INFORMATION: Exam: US Duplex Bilateral Lower Extremity Veins Exam date and time: 08/29/2019 11:22 PM Age: 49 years old Clinical history: Pain; Leg, upper and leg, lower; Bilateral; Additional info: Lower leg swelling; R/O dvt TECHNIQUE: Imaging protocol: Real-time duplex ultrasound of the Bilateral Lower Extremities with 2-D sandoval scale, color Doppler flow and spectral waveform analysis with image documentation. Complete exam focused on the bilateral lower extremity veins. COMPARISON: No relevant prior studies available. FINDINGS: Right deep veins: Unremarkable. The common femoral, femoral, proximal profunda femoral and popliteal veins are patent without thrombus. Normal Doppler waveforms. Normal compressibility and/or augmentation response. Right superficial veins: Saphenofemoral junction is patent without thrombus. Left deep veins: Unremarkable. The common femoral, femoral, proximal profunda femoral and popliteal veins are patent without thrombus. Normal Doppler waveforms. Normal compressibility and/or augmentation response. Left superficial veins: Saphenofemoral junction is patent without thrombus. Soft tissues: Unremarkable. IMPRESSION: No acute findings. No evidence of deep vein thrombosis. Electronically signed by: Tarun Key On 08/29/2019 23:27:43 PM
[2019-08-29 23:38] LABS: BLOOD UREA NITROGEN 5 MG/DL (7-18); CALCIUM LEVEL 6.8 MG/DL (8.5-10.1); CARBON DIOXIDE LEVEL 24 MEQ/L (21-32); CHLORIDE LEVEL 110 MEQ/L (98-107); CPK CREATINE PHOSPHOKINASE 126 U/L (39-308); CREATININE FOR GFR 0.47 MG/DL (0.70-1.30); GLOMERULAR FILTRATION RATE > 60.0 (>56); GLUCOSE, FASTING 68 MG/DL (70-100); MB/CK RELATIVE INDEX 1.59 (< OR =4); NT-PRO BNP 38 PG/ML (<125); POTASSIUM SERUM 2.9 MEQ/L (3.5-5.1); SODIUM LEVEL 141 MEQ/L (136-145); TROPONIN I 0.02 NG/ML (< 0.10)
[2019-08-30] MEDS ORDERED: MORPHINE 4 MG/ML 1ML VIAL/SYRINGE (J2270) IV ONE
[2019-08-30 00:10] LABS: ALBUMIN 2.8 GM/DL (3.2-5.2); ALT/SGPT 20 U/L (12-78); BILIRUBIN,DIRECT < 0.1 MG/DL (0.0-0.2); BILIRUBIN,TOTAL 0.3 MG/DL (0.2-1.0); TOTAL PROTEIN 5.7 GM/DL (6.4-8.2)
[2019-08-30] MEDS ORDERED: POTASSIUM CHLORIDE 10 MEQ SR TABLET PO ONE (00:15)
[2019-08-30] MEDS ORDERED: PRED20TA PO (00:17)
[2019-08-30] MEDS ORDERED: POTA1TAB23 PO (00:17)
[2019-08-30 00:30] VITALS: BP 151/85
--- NOTE | 2019-08-30 08:42 | REP ---
REASON FOR EXAM: Dyspnea. History of congestive heart failure. COMPARISON: 07/31/2019 The tracheostomy tube has been removed. The technique utilized in obtaining the radiograph has magnified the cardiac silhouette and accentuated the interstitial markings. There is mild cardiomegaly accentuated by technique. The lung hernandez are clear and the pleural angles are sharp. There is no change in the osseous structures. IMPRESSION: No evidence of acute cardiopulmonary disease. Electronically Signed by Willie Whitt DO 08/30/2019 09:23 A
--- NOTE | 2019-08-30 13:06 | ECGEPIP ---
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
== END 2019-08-30 01:10 | disposition home or self-care (01) ==
LOC: M ED 22:20
DX: R60.0 Localized edema (principal); J44.1 Chronic obstructive pulmonary disease with (acute) exacerbation; E87.6 Hypokalemia; I45.19 Other right bundle-branch block; J45.909 Unspecified asthma, uncomplicated; K21.9 Gastro-esophageal reflux disease without esophagitis; F10.10 Alcohol abuse, uncomplicated; Z79.899 Other long term (current) drug therapy; Z79.01 Long term (current) use of anticoagulants; Z79.891 Long term (current) use of opiate analgesic; Z88.8 Allergy status to other drugs, medicaments and biological substances; Z88.0 Allergy status to penicillin; Z91.030 Bee allergy status; Z91.02 Food additives allergy status; Z95.5 Presence of coronary angioplasty implant and graft; Z87.19 Personal history of other diseases of the digestive system
CPT/HCPCS: 71045; 80048; 80076; 82550; 82553; 83880; 84484; 85025; 93005; 93970; 94640; 96374; 96375; 96376; 99284; J2270; J2930

== ENCOUNTER 2019-10-14 01:28 | Emergency (ER) | payer MEDICARE, MEDICAID ==
[~2019-10-14 01:28] MED LIST changes: +POTA1TAB23 PO
[2019-10-14 01:49] LABS: BASO # 0.1 10^3/uL (0.0-0.2); BASO % 0.6 % (0.0-1.0); EOS # 0.6 10^3/uL (0.0-0.5); EOS % 6.1 % (0.0-3.0); HEMATOCRIT 41.9 % (42.0-52.0); LYMPH # 3.5 10^3/uL (1.5-5.0); LYMPH % 38.9 % (24.0-44.0); MEAN CORPUSCULAR HEMOGLOBIN 25.3 pg (27.0-33.0); MEAN CORPUSCULAR VOLUME 81.5 fl (80.0-96.0); MONO # 0.8 10^3/uL (0.0-0.8); MONO % 8.9 % (0.0-5.0); NEUTROPHILS # 4.1 10^3/uL (1.5-8.5); NEUTROPHILS % 45.3 % (36.0-66.0); PLATELET COUNT, AUTOMATED 205 10^3/uL (150-450); RED BLOOD COUNT 5.14 10^6/uL (4.30-6.10)
[2019-10-14] MEDS: NITROGLYCERIN 0.4 MG SUBL TABLET SL PRN ×3 (01:56→02:09)
[2019-10-14] MEDS: IPRATROPIUM 0.5MG/ALBUTEROL 2.5MG INH SOL UD 3ML (DUONEB)(J7620) NEB SCH ×3 (01:59→02:41)
[2019-10-14 02:00] LABS: INR 0.96; PROTHROMBIN TIME 12.5 SECONDS (11.8-14.0)
[2019-10-14] MEDS ORDERED: methylPREDNISolone INJ 125 MG/2 ML VIAL (J2930) IV ONE (02:00)
[2019-10-14 02:09] VITALS: BP 116/56
[2019-10-14 02:13] LABS: ALBUMIN 3.4 GM/DL (3.2-5.2); ALT/SGPT 30 U/L (12-78); BILIRUBIN,DIRECT 0.2 MG/DL (0.0-0.2); BILIRUBIN,TOTAL 0.3 MG/DL (0.2-1.0); CPK CREATINE PHOSPHOKINASE 164 U/L (39-308); ETHYL ALCOHOL (ETHANOL) 0.231 % (0.000-0.010); LIPASE 354 U/L (73-393); MB/CK RELATIVE INDEX 1.22 (< OR =4); TOTAL PROTEIN 6.9 GM/DL (6.4-8.2); TROPONIN I < 0.02 NG/ML (< 0.10)
[2019-10-14] MEDS: MORPHINE 4 MG/ML 1ML VIAL/SYRINGE (J2270) IV PRN ×2 (02:42→03:21)
[2019-10-14] MEDS ORDERED: ONDANSETRON 4MG/2ML VIAL (J2405) IV ONE (02:45)
[2019-10-14] MEDS ORDERED: LORazepam 2 MG/ML VIAL (J2060) IV STA (02:56)
[2019-10-14] MEDS ORDERED: ISOVUE-370 76% 100ML VIAL (Q9967) As Ordered ONE (03:01)
[2019-10-14] MEDS ORDERED: LORazepam 2 MG/ML VIAL (J2060) As Ordered ONE (03:17)
[2019-10-14] MEDS: HYDROMORPHONE HCL 0.5 MG/ 0.5 ML SYRINGE (J1170 PER 1) IV PRN ×2 (04:05→05:24)
--- NOTE | 2019-10-14 04:18 | REPVR ---
PROCEDURE INFORMATION: Exam: CT Angiography Chest With Contrast Exam date and time: 10/14/19 (3:07am) Age: 49 years old Clinical indication: Chest pain and SOB TECHNIQUE: Imaging protocol: Computed tomographic angiography of the chest with intravenous contrast. 3D rendering: MIP and/or 3D reconstructed images were created by the technologist. Radiation optimization: All CT scans at this facility use at least one of these dose optimization techniques: automated exposure control; mA and/or kV adjustment per patient size (includes targeted exams where dose is matched to clinical indication); or iterative reconstruction. Contrast material: Iso Contrast volume: 75 ml Contrast route: Antecubital vein COMPARISON: CTA CHEST of 11/18/18 FINDINGS: Pulmonary arteries: Normal. No pulmonary emboli. Aorta: Unremarkable. No aortic aneurysm. No aortic dissection. Lungs: Unremarkable. No consolidation. No masses. Pleural space: Unremarkable. No pneumothorax. No pleural effusions. Heart: Unremarkable. No cardiomegaly. No pericardial effusion. Lymph nodes: Unremarkable. No enlarged lymph nodes. Bones/joints: Unremarkable. No acute fracture. Soft tissues: Unremarkable. Upper abdomen: Large hiatal hernia (6 x 10 cm size in axial dimensions) (unchanged). Diffuse fatty infiltration of the liver. Minimal bilateral perinephric stranding (perhaps a chronic change). IMPRESSION: No acute findings. No filling defects suspicious for pulmonary emboli are seen. There is no CT evidence of aortic dissection nor leakage. No aortic aneurysm is appreciated. Electronically signed by: Ro Damian On 10/14/2019 04:18:17 AM
[2019-10-14] MEDS ORDERED: METHOCARBAMOL 1,000 MG/10 ML VIAL (J2800) IV ONE (05:15)
[2019-10-14] MEDS ORDERED: PERCOCET 5MG/325MG TAB PO ONE (06:30)
[2019-10-14] MEDS ORDERED: HYDROMORPHONE HCL 0.5 MG/ 0.5 ML SYRINGE (J1170 PER 1) IV ONE (07:30)
[2019-10-14] MEDS ORDERED: OXAZEPAM 15 MG CAP PO ONE (08:00)
--- NOTE | 2019-10-14 08:27 | REP ---
Portable chest x-ray: Single view. History: Chest pain. Comparison chest x-ray: August 29, 2019. Findings: There is a moderate sized hiatal hernia behind the heart. The lungs are well inflated and clear. Pleural angles are sharp. Pulmonary vasculature is slightly cephalized. There is no evidence of pulmonary edema. Impression: Cardiomegaly. Cephalization. Otherwise no acute disease. Electronically Signed by Laith Dasilva MD 10/14/2019 08:20 A
[2019-10-14 08:57] LABS: CK-MB VALUE MASS 2.3 NG/ML (<3.6); CPK CREATINE PHOSPHOKINASE 187 U/L (39-308); MB/CK RELATIVE INDEX 1.23 (< OR =4); TROPONIN I < 0.02 NG/ML (< 0.10)
[2019-10-14 09:00] VITALS: BP 166/102
[2019-10-14 09:18] VITALS: O2SAT 89
[2019-10-14] MEDS ORDERED: OXAZ30CA2 PO (09:34)
--- NOTE | 2019-10-15 07:52 | ECGEPIP ---
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
--- NOTE | 2019-10-15 07:53 | ECGEPIP ---
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
== END 2019-10-14 09:49 | disposition left against medical advice (07) ==
LOC: M ED 01:28
DX: F10.230 Alcohol dependence with withdrawal, uncomplicated (principal); R07.9 Chest pain, unspecified; R00.0 Tachycardia, unspecified; I45.10 Unspecified right bundle-branch block; I25.10 Atherosclerotic heart disease of native coronary artery without angina pectoris; I25.2 Old myocardial infarction; R06.02 Shortness of breath; F17.290 Nicotine dependence, other tobacco product, uncomplicated; Z88.8 Allergy status to other drugs, medicaments and biological substances; Z88.0 Allergy status to penicillin; Z88.6 Allergy status to analgesic agent; Z91.030 Bee allergy status; Z91.018 Allergy to other foods; Z79.899 Other long term (current) drug therapy; Z79.891 Long term (current) use of opiate analgesic; Z79.02 Long term (current) use of antithrombotics/antiplatelets
CPT/HCPCS: 36600; 71045; 71275; 80047; 80076; 82550; 82553; 82803; 83690; 84484; 85025; 85610; 93005; 93041; 94640; 96374; 96375; 96376; 99285; G0480; J1170; J2060; J2270; J2405; J2800; J2930; Q9967

== ENCOUNTER 2019-11-18 01:07 | Emergency (ER) | payer MEDICARE, MEDICAID ==
[~2019-11-18] VITALS: Ht 167.6 cm; Wt 85.0 kg
[~2019-11-18 01:07] MED LIST changes: +OXAZ30CA2 PO
[2019-11-18 01:45] LABS: BASO # 0.1 10^3/uL (0.0-0.2); BASO % 0.6 % (0.0-1.0); EOS # 0.5 10^3/uL (0.0-0.5); HEMATOCRIT 40.1 % (42.0-52.0); HEMOGLOBIN 12.3 g/dl (13.5-17.5); LYMPH # 3.3 10^3/uL (1.5-5.0); LYMPH % 37.3 % (24.0-44.0); MEAN CORPUSCULAR HEMOGLOBIN 24.1 pg (27.0-33.0); MEAN CORPUSCULAR HGB CONC 30.7 g/dl (32.0-36.5); MEAN CORPUSCULAR VOLUME 78.5 fl (80.0-96.0); MONO # 0.7 10^3/uL (0.0-0.8); MONO % 7.7 % (0.0-5.0); NEUTROPHILS # 4.3 10^3/uL (1.5-8.5); NEUTROPHILS % 48.2 % (36.0-66.0); PLATELET COUNT, AUTOMATED 198 10^3/uL (150-450); RED BLOOD COUNT 5.11 10^6/uL (4.30-6.10); WHITE BLOOD COUNT 8.8 10^3/uL (4.0-10.0)
[2019-11-18 01:57] LABS: INR 0.99; PARTIAL THROMBOPLASTIN TIME 25.5 SECONDS (25.0-38.4); PROTHROMBIN TIME 12.8 SECONDS (11.8-14.0)
[2019-11-18 02:11] LABS: BLOOD UREA NITROGEN 6 MG/DL (7-18); CALCIUM LEVEL 8.3 MG/DL (8.5-10.1); CARBON DIOXIDE LEVEL 23 MEQ/L (21-32); CHLORIDE LEVEL 98 MEQ/L (98-107); CK-MB VALUE MASS 2.4 NG/ML (<3.6); CPK CREATINE PHOSPHOKINASE 178 U/L (39-308); CREATININE FOR GFR 0.82 MG/DL (0.70-1.30); GLOMERULAR FILTRATION RATE > 60.0 (>56); GLUCOSE, FASTING 78 MG/DL (70-100); MB/CK RELATIVE INDEX 1.35 (< OR =4); POTASSIUM SERUM 3.8 MEQ/L (3.5-5.1); SODIUM LEVEL 132 MEQ/L (136-145); TROPONIN I < 0.02 NG/ML (< 0.10)
[2019-11-18] MEDS ORDERED: diphenhydrAMINE INJ 50MG/ML VIAL (J1200) IV STA (02:25)
[2019-11-18] MEDS ORDERED: HALOPERIDOL 5 MG/ML VIAL (J1630) IV STA (02:25)
[2019-11-18] MEDS ORDERED: ISOVUE-370 76% 100ML VIAL (Q9967) As Ordered ONE (02:27)
[2019-11-18 03:16] VITALS: BP 121/74
--- NOTE | 2019-11-18 03:23 | REPVR ---
PROCEDURE INFORMATION: Exam: CT Angiography Chest With Contrast Exam date and time: 11/18/2019 2:14 AM Age: 49 years old Clinical indication: Chest pain; Type not specified; Additional info: Cp TECHNIQUE: Imaging protocol: Computed tomographic angiography of the chest with intravenous contrast. 3D rendering: MIP and/or 3D reconstructed images were created by the technologist. Radiation optimization: All CT scans at this facility use at least one of these dose optimization techniques: automated exposure control; mA and/or kV adjustment per patient size (includes targeted exams where dose is matched to clinical indication); or iterative reconstruction. Contrast material: ISO; Contrast volume: 75 ml; Contrast route: AC; COMPARISON: CT ANGIO CHEST 10/14/2019 3:04 AM FINDINGS: Pulmonary arteries: No pulmonary emboli. Aorta: No aortic aneurysm. No aortic dissection. Lungs: Unremarkable. No consolidation. No masses. Pleural space: No pneumothorax. No pleural effusion. Heart: The RV/LV ratio measures 0.67 (normal < 0.91). Mediastinum: As seen on the prior study, there is a large hiatal hernia. Lymph nodes: Unremarkable. No enlarged lymph nodes. Bones/joints: Unremarkable. No acute fracture. Soft tissues: Unremarkable. IMPRESSION: No evidence of pulmonary embolus by CTA PA. No acute cardiopulmonary process. Electronically signed by: Crispin Potter On 11/18/2019 03:22:39 AM
--- NOTE | 2019-11-18 07:58 | REP ---
Clinical: Chest pain . Comparison: 10/14/2019 . Findings: The mediastinum and cardiac silhouette are stable and within normal limits for portable technique. The lung hernandez are clear without acute consolidation, effusion, or pneumothorax. Skeletal structures are intact. Impression: No acute cardiopulmonary process appreciated. Electronically Signed by Amor Mott MD 11/18/2019 07:49 A
--- NOTE | 2019-11-18 08:07 | ECGEPIP ---
[facility] - ED Test Date: 2019-11-18 Pat Name: KRYS TIRADO Department: Room: - Gender: Male Physician President: va : 1970 Requested By: SHELIA HOBSON Order Number: [id number] Reading MD: Moira Martínez Measurements Intervals [place] Rate: 85 P: 3 WI: 123 QRS: -19 QRSD: 114 T: 33 QT: 387 QTc: 460 Interpretive Statements SINUS RHYTHM INCOMPLETE RIGHT BUNDLE BRANCH BLOCK NSTTW abnormalities Prolonged QT interval baseline artifact may affect interpretation Electronically Signed on 11-18-2019 8:07:44 EST by Moira Martínez
== END 2019-11-18 04:07 | disposition home or self-care (01) ==
LOC: M ED 01:07
DX: F10.120 Alcohol abuse with intoxication, uncomplicated (principal); R09.89 Other specified symptoms and signs involving the circulatory and respiratory systems; I25.10 Atherosclerotic heart disease of native coronary artery without angina pectoris; K21.9 Gastro-esophageal reflux disease without esophagitis; J44.9 Chronic obstructive pulmonary disease, unspecified; M54.9 Dorsalgia, unspecified; Z95.5 Presence of coronary angioplasty implant and graft; F17.210 Nicotine dependence, cigarettes, uncomplicated; Z88.8 Allergy status to other drugs, medicaments and biological substances; Z88.0 Allergy status to penicillin; Z88.6 Allergy status to analgesic agent; Z91.030 Bee allergy status; Z91.02 Food additives allergy status; Z79.899 Other long term (current) drug therapy; Z79.891 Long term (current) use of opiate analgesic; Z79.02 Long term (current) use of antithrombotics/antiplatelets
CPT/HCPCS: 71045; 71275; 80048; 82550; 82553; 84484; 85025; 85610; 85730; 93005; 93041; 94760; 96374; 96375; 99285; G0480; J1200; J1630; Q9967

== ENCOUNTER → 2020-02-19 | Outpatient (CLI) | payer MEDICARE, MEDICAID ==
--- NOTE | 2020-02-25 13:00 | SLEEPHOME ---
DATE OF STUDY: 02/19/2020 ORDERING PROVIDER: INDY Salguero Diagnostic home sleep testing was performed due to concern for the obstructive sleep apnea syndrome. For testing, a nocturnal T3 respiratory monitoring system was used. Continuous record was made of pulse, oxygen saturation, airflow, chest and abdominal strain, and body position. 9 hours and 59 minutes of data were reviewed. There were 4 hours and 35 minutes marked as time in bed. During the interval marked time in bed, there were 106 respiratory events identified of 10 seconds in duration or greater for a respiratory event index of 23.1. The events were primarily obstructive, 9 central and 6 mixed apneas were also seen. Baseline pulse rate 87 beats per minute. Pulse rate ranged 75 to 110. Baseline saturation was 96%. Saturations fell to 77%. Testing was performed in both the supine and nonsupine positions. IMPRESSION: Abnormal home sleep testing with repetitive respiratory events and oxygen desaturations to 77% with a respiratory event index of 23.1 is consistent with the obstructive sleep apnea syndrome. RECOMMENDATION: The patient should be encouraged to undergo formal sleep evaluation.
== END ==
LOC: M SLEEP HO 10:10
DX: G47.33 Obstructive sleep apnea (adult) (pediatric) (principal)

== ENCOUNTER 2020-06-08 02:04 | Emergency (ER) | payer MEDICARE, MEDICAID ==
[~2020-06-08 02:04] MED LIST changes: +AMLO1TAB24 PO; -AMLO5TAB6 PO; -HYDR-2807 PO; +HYDR-4433 PO; +PANT40TA29 PO; -PANT40TA3 PO
[2020-06-08 02:27] LABS: BASO % 0.5 % (0.0-1.0); EOS # 0.3 10^3/uL (0.0-0.5); EOS % 4.1 % (0.0-3.0); HEMATOCRIT 44.2 % (42.0-52.0); HEMOGLOBIN 13.9 g/dl (13.5-17.5); LYMPH # 3.8 10^3/uL (1.5-5.0); LYMPH % 45.4 % (24.0-44.0); MEAN CORPUSCULAR HEMOGLOBIN 25.5 pg (27.0-33.0); MEAN CORPUSCULAR HGB CONC 31.4 g/dl (32.0-36.5); MEAN CORPUSCULAR VOLUME 81.1 fl (80.0-96.0); MONO # 0.6 10^3/uL (0.0-0.8); MONO % 6.7 % (0.0-5.0); NEUTROPHILS # 3.6 10^3/uL (1.5-8.5); NEUTROPHILS % 42.9 % (36.0-66.0); PLATELET COUNT, AUTOMATED 200 10^3/uL (150-450); RED BLOOD COUNT 5.45 10^6/uL (4.30-6.10); WHITE BLOOD COUNT 8.3 10^3/uL (4.0-10.0)
[2020-06-08] MEDS ORDERED: IPRATROPIUM 0.5MG/ALBUTEROL 2.5MG INH SOL UD 3ML (DUONEB) As Ordered ONE (02:28)
[2020-06-08 02:29] VITALS: BP 128/78
[2020-06-08] MEDS ORDERED: IPRATROPIUM 0.5MG/ALBUTEROL 2.5MG INH SOL UD 3ML (DUONEB) NEB ONE (02:30)
[2020-06-08 02:37] LABS: INR 0.88; PROTHROMBIN TIME 12.1 SECONDS (11.8-14.0)
[2020-06-08 02:59] LABS: ALBUMIN 3.8 GM/DL (3.2-5.2); ALT/SGPT 56 U/L (12-78); BILIRUBIN,DIRECT 0.1 MG/DL (0.0-0.2); BILIRUBIN,TOTAL 0.3 MG/DL (0.2-1.0); BLOOD UREA NITROGEN 4 MG/DL (7-18); CALCIUM LEVEL 8.9 MG/DL (8.5-10.1); CARBON DIOXIDE LEVEL 26 MEQ/L (21-32); CHLORIDE LEVEL 99 MEQ/L (98-107); CPK CREATINE PHOSPHOKINASE 256 U/L (39-308); CREATININE FOR GFR 0.81 MG/DL (0.70-1.30); GLOMERULAR FILTRATION RATE > 60.0 (>56); GLUCOSE, FASTING 79 MG/DL (70-100); LIPASE 791 U/L (73-393); MB/CK RELATIVE INDEX 1.17 (< OR =4); POTASSIUM SERUM 3.9 MEQ/L (3.5-5.1); SODIUM LEVEL 135 MEQ/L (136-145); TOTAL PROTEIN 7.6 GM/DL (6.4-8.2); TROPONIN I < 0.02 NG/ML (< 0.10)
[2020-06-08 04:08] LABS: ACETAMINOPHEN LEVEL < 2.0 UG/ML (10.0-30.0); SALICYLATE LEVEL 4.6 MG/DL (5.0-30.0)
[2020-06-08 04:08] LABS: AMPHETAMINES LEVEL URINE NEGATIVE (NEGATIVE); BARBITURATES URINE NEGATIVE (NEGATIVE); BENZODIAZEPINES URINE NEGATIVE (NEGATIVE); CANNABINOIDS URINE NEGATIVE (NEGATIVE); COCAINE METABOLITE URINE NEGATIVE (NEGATIVE); METHADONE URINE NEGATIVE (NEGATIVE); OPIATES URINE POSITIVE (NEGATIVE); PHENCYCLIDINE URINE NEGATIVE (NEGATIVE)
[2020-06-08] MEDS ORDERED: NORCO, ANEXSIA 5/325MG TABLET (HYDROcodone/ACETAMINOPHEN) PO ONE (04:30)
--- NOTE | 2020-06-16 12:07 | ECGEPIP ---
[facility] - ED Test Date: 2020-06-08 Pat Name: KRYS TIRADO Department: Room: - Gender: Male [employer]: LUIS CARLOS : 1970 Requested By: SHABNAM Ibarra Order Number: [id number] Reading MD: Moira Martínez Measurements Intervals [place] Rate: 87 P: 69 DC: 154 QRS: 30 QRSD: 116 T: 49 QT: 363 QTc: 439 Interpretive Statements SINUS RHYTHM POSSIBLE LEFT ATRIAL ENLARGEMENT INCOMPLETE RIGHT BUNDLE BRANCH BLOCK SEE SCANNED DOWNTIME REPORT
--- NOTE | 2020-07-06 13:25 | REP ---
PORTABLE CHEST X-RAY CLINICAL: Chest pain. COMPARISON: 11/18/2019. FINDINGS: Mediastinum and cardiac silhouette are normal. Lung hernandez are clear. No acute consolidation, effusion, or pneumothorax. Skeletal structures are intact. IMPRESSION: No acute cardiopulmonary process or focal consolidation. MTDD
== END 2020-06-08 04:58 | disposition home or self-care (01) ==
LOC: M ED 02:04
DX: F10.120 Alcohol abuse with intoxication, uncomplicated (principal); R07.9 Chest pain, unspecified; J44.9 Chronic obstructive pulmonary disease, unspecified; I11.9 Hypertensive heart disease without heart failure; I25.10 Atherosclerotic heart disease of native coronary artery without angina pectoris; M54.9 Dorsalgia, unspecified; F17.210 Nicotine dependence, cigarettes, uncomplicated; Z88.8 Allergy status to other drugs, medicaments and biological substances; Z88.0 Allergy status to penicillin; Z88.6 Allergy status to analgesic agent; Z91.030 Bee allergy status; Z91.018 Allergy to other foods; Z79.899 Other long term (current) drug therapy; Z79.891 Long term (current) use of opiate analgesic; Z79.02 Long term (current) use of antithrombotics/antiplatelets
CPT/HCPCS: 71045; 80053; 80307; 82248; 82550; 82553; 83690; 84484; 85025; 85610; 93005; 93041; 94760; 99285; G0480

== ENCOUNTER 2023-08-19 21:16 | Emergency (ER) | payer MEDICARE, MEDICAID ==
[~2023-08-19] VITALS: Ht 172.7 cm; Wt 86.1 kg
[~2023-08-19 21:16] MED LIST changes: +DOXY-443 PO; -DOXY100C37 PO; -LISI40TA PO; +LISI40TA4 PO; -MORP1CAP47 PO; +MORP1CAP9 PO; -PEG1POW PO; +POLY17PO18 PO; +SENN1TAB49 PO; -SM S1TAB6 PO
[2023-08-19 21:29] VITALS: TEMP 98.3
[2023-08-19] MEDS ORDERED: NS 1,000 ML IV ONE (21:30)
[2023-08-19 21:49] LABS: VENOUS BASE EXCESS -0.8 (-2.0-2.0); VENOUS HCO3 24.3 MMOL/L (23.0-27.0); VENOUS O2 SATURATION 99.4 % (60.0-80.0); VENOUS PARTIAL PRESSURE CO2 41.8 mmHg (38.0-50.0); VENOUS PARTIAL PRESSURE O2 159.7 mmHg (30.0-50.0); VENOUS PH 7.382 UNITS (7.330-7.430); VENOUS STANDARD HCO3 23.9 MMOL/L; VENOUS TOTAL CO2 25.6 MMOL/L (24.0-28.0)
[2023-08-19 21:57] LABS: BASO % 0.5 % (0.0-1.0); EOS # 0.4 10^3/uL (0.0-0.5); HEMATOCRIT 30.3 % (42.0-52.0); HEMOGLOBIN 8.6 g/dl (13.5-17.5); LYMPH # 3.1 10^3/uL (1.5-5.0); LYMPH % 34.7 % (24.0-44.0); MEAN CORPUSCULAR HEMOGLOBIN 19.6 pg (27.0-33.0); MEAN CORPUSCULAR HGB CONC 28.4 g/dl (32.0-36.5); MEAN CORPUSCULAR VOLUME 69.2 fl (80.0-96.0); MONO # 0.7 10^3/uL (0.0-0.8); MONO % 7.4 % (2.0-8.0); NEUTROPHILS # 4.7 10^3/uL (1.5-8.5); NEUTROPHILS % 53.1 % (36.0-66.0); PLATELET COUNT, AUTOMATED 209 10^3/uL (150-450); RED BLOOD COUNT 4.38 10^6/uL (4.30-6.10); WHITE BLOOD COUNT 8.8 10^3/uL (4.0-10.0)
[2023-08-19] MEDS ORDERED: MORPHINE 15 MG SA TAB PO ONE (22:05)
[2023-08-19 22:27] LABS: LIPASE 72 U/L (12-53)
[2023-08-19 22:29] LABS: ALBUMIN 3.6 G/DL (3.2-5.2); ALKALINE PHOSPHATASE 56 U/L (46-116); ALT/SGPT 21 U/L (7.0-40); AST/SGOT 23 U/L (<34); BILIRUBIN,DIRECT 0.1 MG/DL (<0.4); BILIRUBIN,TOTAL 0.3 MG/DL (0.3-1.2); BLOOD UREA NITROGEN 11 MG/DL (9-23); CALCIUM LEVEL 8.4 MG/DL (8.5-10.1); CARBON DIOXIDE LEVEL 24 MMOL/L (20-31); CHLORIDE LEVEL 100 MMOL/L (98-107); CPK CREATINE PHOSPHOKINASE 162 U/L (46-171); CREATININE FOR GFR 0.67 MG/DL (0.70-1.30); GLOMERULAR FILTRATION RATE > 60.0 (>56); GLUCOSE, FASTING 83 MG/DL (60-100); MB/CK RELATIVE INDEX 1.23 (< OR =4); POTASSIUM SERUM 3.6 MMOL/L (3.5-5.1); SODIUM LEVEL 136 MMOL/L (136-145); TOTAL PROTEIN 6.7 G/DL (5.7-8.2)
[2023-08-19 22:31] LABS: RSV AMPLIFICATION NEGATIVE (NEGATIVE); THYROID STIMULATING HORMONE 0.649 uIU/ML (0.55-4.78)
[2023-08-19] MEDS ORDERED: ISOVUE-370 76% 100ML VIAL As Ordered ONE (22:35)
[2023-08-19 23:41] LABS: CK-MB VALUE MASS 2.1 NG/ML (<3.6)
[2023-08-19 23:43] LABS: MB/CK RELATIVE INDEX 1.38 (< OR =4)
[2023-08-20] MEDS ORDERED: predniSONE 20 MG TAB PO ONE (00:55)
[2023-08-20] MEDS ORDERED: MORPHINE 4 MG/ML 1ML VIAL IV ONE (00:55)
[2023-08-20] MEDS ORDERED: MEDR4PAK PO (01:03)
[2023-08-20 01:29] VITALS: BP 121/65; O2SAT 95
== END 2023-08-20 01:37 | disposition home or self-care (01) ==
LOC: M ED 21:16 → EDBD 21:16 → M ED 08-20 01:37
DX: R07.89 Other chest pain (principal); F10.120 Alcohol abuse with intoxication, uncomplicated; M25.511 Pain in right shoulder; K44.9 Diaphragmatic hernia without obstruction or gangrene; K21.9 Gastro-esophageal reflux disease without esophagitis; M47.812 Spondylosis without myelopathy or radiculopathy, cervical region; I10 Essential (primary) hypertension; J44.9 Chronic obstructive pulmonary disease, unspecified; F32.A Depression, unspecified; R06.02 Shortness of breath; F17.200 Nicotine dependence, unspecified, uncomplicated; Z88.8 Allergy status to other drugs, medicaments and biological substances; Z88.1 Allergy status to other antibiotic agents; Z88.0 Allergy status to penicillin; Z91.018 Allergy to other foods; Z91.030 Bee allergy status; Z79.899 Other long term (current) drug therapy; Z79.02 Long term (current) use of antithrombotics/antiplatelets
CPT/HCPCS: 70450; 71045; 71275; 72125; 73030; 74177; 80047; 80048; 80076; 82550; 82553; 82803; 83690; 83880; 84443; 84484; 85025; 85379; 87631; 93005; 93041; 94760; 96361; 96374; 99285; J7512; Q9967

== ENCOUNTER 2024-10-08 05:23 | Inpatient (IN) | payer OTHER, MEDICAID ==
[~2024-10-08] VITALS: Ht 170.2 cm; Wt 82.0 kg
[~2024-10-08 05:23] MED LIST changes: +DOXY-441 PO; -DOXY-443 PO; +MEDR4PAK PO; -SENN1TAB41 PO; +SENN1TAB85 PO
[2024-10-08] MEDS: LORazepam 2 MG/ML 1ML VIAL IV STA (05:36)
[2024-10-08 05:43] LABS: BASO % 0.4 % (0.0-1.0); EOS # 0.2 10^3/uL (0.0-0.5); EOS % 2.1 % (0.0-3.0); HEMATOCRIT 41.5 % (42.0-52.0); HEMOGLOBIN 14.1 g/dl (13.5-17.5); LYMPH # 3.7 10^3/uL (1.5-5.0); LYMPH % 40.9 % (24.0-44.0); MEAN CORPUSCULAR HEMOGLOBIN 30.4 pg (27.0-33.0); MEAN CORPUSCULAR VOLUME 89.4 fl (80.0-96.0); MONO # 0.9 10^3/uL (0.0-0.8); MONO % 9.6 % (2.0-8.0); NEUTROPHILS # 4.2 10^3/uL (1.5-8.5); NEUTROPHILS % 46.6 % (36.0-66.0); PLATELET COUNT, AUTOMATED 213 10^3/uL (150-450); RED BLOOD COUNT 4.64 10^6/uL (4.30-6.10)
[2024-10-08] MEDS: IPRATROPIUM 0.5MG/ALBUTEROL 2.5MG INH SOL UD 3ML (DUONEB) NEB SCH (05:43)
[2024-10-08 06:14] LABS: CK-MB VALUE MASS 4.9 NG/ML (<3.6)
[2024-10-08 06:15] LABS: ETHYL ALCOHOL (ETHANOL) 0.281 % (0.000-0.010)
[2024-10-08 06:17] LABS: ALBUMIN 3.4 G/DL (3.2-5.2); ALKALINE PHOSPHATASE 84 U/L (40-129); ALT/SGPT 39 U/L (7.0-40); AST/SGOT 51 U/L (<34); BILIRUBIN,DIRECT < 0.1 MG/DL (<0.4); BILIRUBIN,TOTAL 0.2 MG/DL (0.3-1.2); BLOOD UREA NITROGEN 11 MG/DL (9-23); CALCIUM LEVEL 8.7 MG/DL (8.5-10.1); CARBON DIOXIDE LEVEL 22 MMOL/L (20-31); CHLORIDE LEVEL 106 MMOL/L (98-107); CPK CREATINE PHOSPHOKINASE 266 U/L (46-171); CREATININE FOR GFR 0.85 MG/DL (0.70-1.30); GLOMERULAR FILTRATION RATE > 60.0 (>56); GLUCOSE, FASTING 89 MG/DL (60-100); MB/CK RELATIVE INDEX 1.84 (< OR =4); POTASSIUM SERUM 4.3 MMOL/L (3.5-5.1); SALICYLATE LEVEL < 3.0 MG/DL (<30); SODIUM LEVEL 141 MMOL/L (136-145); TOTAL PROTEIN 6.7 G/DL (5.7-8.2)
[2024-10-08 06:19] LABS: THYROID STIMULATING HORMONE 1.119 uIU/ML (0.55-4.78)
[2024-10-08] MEDS ORDERED: LORazepam 2 MG TAB PO PRN (06:30)
[2024-10-08 07:05] LABS: CK-MB VALUE MASS 7.9 NG/ML (<3.6)
[2024-10-08 07:07] LABS: MB/CK RELATIVE INDEX 2.17 (< OR =4)
[2024-10-08] MEDS: THIAMINE 100 MG TAB PO SCH (09:10)
[2024-10-08] MEDS: MULTIVITAMINS/MINERALS THERAP 1 TAB PO SCH (09:10)
[2024-10-08] MEDS: FOLIC ACID 1MG TAB PO SCH (09:10)
[2024-10-08 10:28] LABS: BARBITURATES URINE NEGATIVE (NEGATIVE); BENZODIAZEPINES URINE NEGATIVE (NEGATIVE); CANNABINOIDS URINE NEGATIVE (NEGATIVE); COCAINE METABOLITE URINE NEGATIVE (NEGATIVE); METHADONE URINE NEGATIVE (NEGATIVE); OPIATES URINE NEGATIVE (NEGATIVE); PHENCYCLIDINE URINE NEGATIVE (NEGATIVE)
[2024-10-08 10:58] LABS: AMPHETAMINES LEVEL URINE POSITIVE (NEGATIVE)
[2024-10-08] MEDS ORDERED: NITR0.4S14 SL (12:36)
[2024-10-08] MEDS: MORPHINE SULFATE TAB EXT REL 15 MG PO ONE (13:02)
[2024-10-08] MEDS ORDERED: diphenhydrAMINE 25MG CAP PO PRN (13:05)
[2024-10-08] MEDS ORDERED: MOM 30ML SUSPENSION UDC PO PRN (13:05)
[2024-10-08] MEDS ORDERED: IBUPROFEN 400MG TAB PO PRN (13:05)
[2024-10-08] MEDS ORDERED: MAALOX 30 ML SUSP *UDC PO PRN (13:05)
[2024-10-08] MEDS ORDERED: ACETAMINOPHEN 325 MG TAB PO PRN (13:05)
[2024-10-08] MEDS ORDERED: traZODone 50 MG TAB PO PRN (13:05)
[2024-10-08 15:14] VITALS: BP 142/75; TEMP 98
[2024-10-08] MEDS ORDERED: NITROGLYCERIN 0.4MG SUBL TABLET SL PRN (15:25)
[2024-10-08] MEDS ORDERED: NITROGLYCERIN 0.4MG SUBL TABLET As Ordered ONE (15:27)
[2024-10-08] MEDS ORDERED: AMLO1TAB25 PO (15:59)
[2024-10-08] MEDS ORDERED: METO1TAB87 PO (15:59)
[2024-10-08 16:14] VITALS: BP 170/100; TEMP 98; O2SAT 96
== END 2024-10-08 15:38 | disposition short-term general hospital (02) | DRG 885 ==
LOC: M ED 05:23 → EDBD 05:23 → M ED INP 13:01 → M PSY 15:21
PROVIDERS: ADMIT Psychiatry & Neurology Psychiatry; ATTEND Psychiatry & Neurology Psychiatry
DX: F39 Unspecified mood [affective] disorder (principal); F10.230 Alcohol dependence with withdrawal, uncomplicated; R07.89 Other chest pain; E78.5 Hyperlipidemia, unspecified; I11.9 Hypertensive heart disease without heart failure; I25.10 Atherosclerotic heart disease of native coronary artery without angina pectoris; M54.2 Cervicalgia; R20.2 Paresthesia of skin; G89.29 Other chronic pain; F43.10 Post-traumatic stress disorder, unspecified; G25.1 Drug-induced tremor; F15.10 Other stimulant abuse, uncomplicated; G47.33 Obstructive sleep apnea (adult) (pediatric); K21.9 Gastro-esophageal reflux disease without esophagitis; J44.9 Chronic obstructive pulmonary disease, unspecified; Z86.73 Personal history of transient ischemic attack (TIA), and cerebral infarction without residual deficits; G43.909 Migraine, unspecified, not intractable, without status migrainosus; Z95.5 Presence of coronary angioplasty implant and graft; F17.200 Nicotine dependence, unspecified, uncomplicated; Z88.0 Allergy status to penicillin; Z88.8 Allergy status to other drugs, medicaments and biological substances; Z88.6 Allergy status to analgesic agent; Z91.030 Bee allergy status; Z91.018 Allergy to other foods; Z79.899 Other long term (current) drug therapy; Z79.02 Long term (current) use of antithrombotics/antiplatelets; Z79.891 Long term (current) use of opiate analgesic

== ENCOUNTER 2024-10-08 15:43 | Observation (INO) | payer OTHER, MEDICAID ==
[~2024-10-08] VITALS: Ht 167.6 cm; Wt 82.1 kg
[~2024-10-08 15:43] MED LIST changes: +NITR0.4S14 SL
[2024-10-08] MEDS ORDERED: METO1TAB87 PO (15:59)
[2024-10-08] MEDS ORDERED: AMLO1TAB25 PO (15:59)
[2024-10-08 16:00] VITALS: BP 150/87; TEMP 99.1; O2SAT 90
[2024-10-08] MEDS ORDERED: ACETAMINOPHEN 325 MG TAB PO PRN (16:00)
[2024-10-08] MEDS ORDERED: HOME MED LIST COMPLETE! XX SCH (16:00)
[2024-10-08 16:37] LABS: HEMATOCRIT 39.2 % (42.0-52.0); HEMOGLOBIN 13.1 g/dl (13.5-17.5); MEAN CORPUSCULAR HGB CONC 33.4 g/dl (32.0-36.5); MEAN CORPUSCULAR VOLUME 89.7 fl (80.0-96.0); PLATELET COUNT, AUTOMATED 176 10^3/uL (150-450); RED BLOOD COUNT 4.37 10^6/uL (4.30-6.10); WHITE BLOOD COUNT 6.9 10^3/uL (4.0-10.0)
[2024-10-08 16:55] LABS: CK-MB VALUE MASS 10.9 NG/ML (<3.6)
[2024-10-08 16:56] LABS: ALBUMIN 3.2 G/DL (3.2-5.2); ALKALINE PHOSPHATASE 75 U/L (40-129); ALT/SGPT 35 U/L (7.0-40); AST/SGOT 55 U/L (<34); BILIRUBIN,TOTAL 0.3 MG/DL (0.3-1.2); BLOOD UREA NITROGEN 9 MG/DL (9-23); CALCIUM LEVEL 8.5 MG/DL (8.5-10.1); CARBON DIOXIDE LEVEL 28 MMOL/L (20-31); CHLORIDE LEVEL 105 MMOL/L (98-107); CREATININE FOR GFR 0.68 MG/DL (0.70-1.30); GLOMERULAR FILTRATION RATE > 60.0 (>56); GLUCOSE, FASTING 134 MG/DL (60-100); POTASSIUM SERUM 3.7 MMOL/L (3.5-5.1); SODIUM LEVEL 140 MMOL/L (136-145); TOTAL PROTEIN 6.5 G/DL (5.7-8.2)
[2024-10-08 16:57] LABS: MB/CK RELATIVE INDEX 1.68 (< OR =4)
[2024-10-08] MEDS: METOPROLOL TART 12.5 MG PER 1/2 TAB PO SCH (17:08)
[2024-10-08] MEDS: NORCO, ANEXSIA 5/325MG TABLET (HYDROcodone/ACETAMINOPHEN) PO PRN (17:09)
[2024-10-08 21:00] VITALS: BP 157/84; TEMP 97.6; O2SAT 93
[2024-10-08] MEDS: MORPHINE SULFATE TAB EXT REL 15 MG PO SCH (21:26)
[2024-10-08] MEDS: THIAMINE 100 MG TAB PO SCH (21:26)
[2024-10-08 22:22] LABS: CK-MB VALUE MASS 8.1 NG/ML (<3.6)
[2024-10-08 22:25] LABS: MB/CK RELATIVE INDEX 1.44 (< OR =4)
[2024-10-09] VITALS (16 sets, daily range): BP systolic 112–170; BP diastolic 71–94; TEMP 97.9–98.1; O2SAT 86–97
[2024-10-09] MEDS: LORazepam 2 MG TAB PO PRN (00:54)
[2024-10-09 05:13] LABS: HEMATOCRIT 39.8 % (42.0-52.0); HEMOGLOBIN 12.9 g/dl (13.5-17.5); MEAN CORPUSCULAR HEMOGLOBIN 29.8 pg (27.0-33.0); MEAN CORPUSCULAR HGB CONC 32.4 g/dl (32.0-36.5); MEAN CORPUSCULAR VOLUME 91.9 fl (80.0-96.0); PLATELET COUNT, AUTOMATED 164 10^3/uL (150-450); RED BLOOD COUNT 4.33 10^6/uL (4.30-6.10); WHITE BLOOD COUNT 6.9 10^3/uL (4.0-10.0)
[2024-10-09 05:46] LABS: BLOOD UREA NITROGEN 16 MG/DL (9-23); CALCIUM LEVEL 8.3 MG/DL (8.5-10.1); CARBON DIOXIDE LEVEL 30 MMOL/L (20-31); CHLORIDE LEVEL 105 MMOL/L (98-107); CK-MB VALUE MASS 5.5 NG/ML (<3.6); CPK CREATINE PHOSPHOKINASE 426 U/L (46-171); GLOMERULAR FILTRATION RATE > 60.0 (>56); GLUCOSE, FASTING 100 MG/DL (60-100); MB/CK RELATIVE INDEX 1.29 (< OR =4); POTASSIUM SERUM 4.2 MMOL/L (3.5-5.1); SODIUM LEVEL 142 MMOL/L (136-145)
[2024-10-09] MEDS: NICOTINE 21MG/24HR 1 EA TRANSDERMAL TD ONE (06:49)
[2024-10-09] MEDS: PRAVASTATIN 20 MG TAB PO SCH (08:14)
[2024-10-09] MEDS: ENOXAPARIN 40MG/0.4ML SYRINGE (J1650 PER 10MG) SC SCH (08:15)
[2024-10-09] MEDS: PANTOPRAZOLE 40MG TAB (PROTONIX) PO SCH (08:17)
[2024-10-09] MEDS: MULTIVITAMINS/MINERALS THERAP 1 TAB PO SCH (08:17)
[2024-10-09] MEDS: CitaloPRAM (CeleXA) 20 MG TAB PO SCH (08:17)
[2024-10-09] MEDS: FOLIC ACID 1MG TAB PO SCH (08:17)
[2024-10-09] MEDS: CLOPIDOGREL 75 MG TAB PO SCH (08:18)
[2024-10-09] MEDS: ALBUTEROL 90 MCG/ACT 8GM HFA INHALER INH PRN (14:03)
[2024-10-09 14:35] LABS: CK-MB VALUE MASS 4.1 NG/ML (<3.6)
[2024-10-09 14:36] LABS: MB/CK RELATIVE INDEX 1.28 (< OR =4)
[2024-10-10] VITALS (12 sets, daily range): BP systolic 134–153; BP diastolic 75–93; TEMP 97.2–98.2; O2SAT 90–96
[2024-10-10 05:02] LABS: HEMATOCRIT 40.4 % (42.0-52.0); HEMOGLOBIN 12.7 g/dl (13.5-17.5); MEAN CORPUSCULAR HEMOGLOBIN 29.6 pg (27.0-33.0); MEAN CORPUSCULAR HGB CONC 31.4 g/dl (32.0-36.5); MEAN CORPUSCULAR VOLUME 94.2 fl (80.0-96.0); PLATELET COUNT, AUTOMATED 162 10^3/uL (150-450); RED BLOOD COUNT 4.29 10^6/uL (4.30-6.10); WHITE BLOOD COUNT 6.3 10^3/uL (4.0-10.0)
[2024-10-10 05:23] LABS: BLOOD UREA NITROGEN 12 MG/DL (9-23); CALCIUM LEVEL 8.9 MG/DL (8.5-10.1); CARBON DIOXIDE LEVEL 33 MMOL/L (20-31); CHLORIDE LEVEL 104 MMOL/L (98-107); CREATININE FOR GFR 0.64 MG/DL (0.70-1.30); GLOMERULAR FILTRATION RATE > 60.0 (>56); GLUCOSE, FASTING 100 MG/DL (60-100); POTASSIUM SERUM 4.2 MMOL/L (3.5-5.1); SODIUM LEVEL 142 MMOL/L (136-145)
[2024-10-10] MEDS: NICOTINE 21MG/24HR 1 EA TRANSDERMAL TD SCH (13:25)
[2024-10-10] MEDS: NITROGLYCERIN 0.4MG SUBL TABLET SL PRN (21:15)
[2024-10-11] VITALS (7 sets, daily range): BP systolic 136–180; BP diastolic 76–105; TEMP 97.7–98.3; O2SAT 92–96
[2024-10-11 06:57] LABS: HEMATOCRIT 39.8 % (42.0-52.0); HEMOGLOBIN 12.6 g/dl (13.5-17.5); MEAN CORPUSCULAR HEMOGLOBIN 29.2 pg (27.0-33.0); MEAN CORPUSCULAR HGB CONC 31.7 g/dl (32.0-36.5); MEAN CORPUSCULAR VOLUME 92.3 fl (80.0-96.0); PLATELET COUNT, AUTOMATED 170 10^3/uL (150-450); RED BLOOD COUNT 4.31 10^6/uL (4.30-6.10); WHITE BLOOD COUNT 5.9 10^3/uL (4.0-10.0)
[2024-10-11 07:17] LABS: BLOOD UREA NITROGEN 14 MG/DL (9-23); CALCIUM LEVEL 8.7 MG/DL (8.5-10.1); CARBON DIOXIDE LEVEL 30 MMOL/L (20-31); CHLORIDE LEVEL 108 MMOL/L (98-107); CREATININE FOR GFR 0.58 MG/DL (0.70-1.30); GLOMERULAR FILTRATION RATE > 60.0 (>56); GLUCOSE, FASTING 127 MG/DL (60-100); POTASSIUM SERUM 4.5 MMOL/L (3.5-5.1); SODIUM LEVEL 143 MMOL/L (136-145)
[2024-10-11] MEDS: METOPROLOL TART 25 MG TABLET PO SCH (15:27)
[2024-10-12 04:03] VITALS: BP 167/94; TEMP 98.2; O2SAT 95
[2024-10-12 07:05] LABS: HEMATOCRIT 41.6 % (42.0-52.0); HEMOGLOBIN 13.4 g/dl (13.5-17.5); MEAN CORPUSCULAR HGB CONC 32.2 g/dl (32.0-36.5); MEAN CORPUSCULAR VOLUME 93.3 fl (80.0-96.0); PLATELET COUNT, AUTOMATED 176 10^3/uL (150-450); RED BLOOD COUNT 4.46 10^6/uL (4.30-6.10); WHITE BLOOD COUNT 6.5 10^3/uL (4.0-10.0)
[2024-10-12 07:29] LABS: ALBUMIN 2.9 G/DL (3.2-5.2); ALKALINE PHOSPHATASE 79 U/L (40-129); ALT/SGPT 35 U/L (7.0-40); AST/SGOT 33 U/L (<34); BILIRUBIN,TOTAL 0.3 MG/DL (0.3-1.2); BLOOD UREA NITROGEN 11 MG/DL (9-23); CARBON DIOXIDE LEVEL 33 MMOL/L (20-31); CHLORIDE LEVEL 105 MMOL/L (98-107); CREATININE FOR GFR 0.66 MG/DL (0.70-1.30); GLOMERULAR FILTRATION RATE > 60.0 (>56); GLUCOSE, FASTING 96 MG/DL (60-100); MAGNESIUM LEVEL 1.6 MG/DL (1.8-2.4); POTASSIUM SERUM 4.2 MMOL/L (3.5-5.1); SODIUM LEVEL 143 MMOL/L (136-145)
[2024-10-12 08:11] VITALS: BP 160/80; TEMP 97.8; O2SAT 95
[2024-10-12 09:28] VITALS: BP 160/78
[2024-10-12] MEDS ORDERED: FOLI1TAB11 PO (10:42)
[2024-10-12] MEDS ORDERED: METO1TAB87 PO (10:42)
[2024-10-12 12:00] VITALS: BP 116/87; TEMP 97.6; O2SAT 95
[2024-10-12] MEDS ORDERED: METOPROLOL TART 25 MG TABLET PO SCH (21:00)
== END 2024-10-12 16:40 | disposition home or self-care (01) ==
LOC: INTOOBSV 15:43 → M ICU 15:43 → M PCU 10-10 16:07
PROVIDERS: ADMIT Internal Medicine; ATTEND Internal Medicine
DX: R07.89 Other chest pain (principal); F10.230 Alcohol dependence with withdrawal, uncomplicated; F39 Unspecified mood [affective] disorder; E78.5 Hyperlipidemia, unspecified; I11.9 Hypertensive heart disease without heart failure; I25.10 Atherosclerotic heart disease of native coronary artery without angina pectoris; M54.2 Cervicalgia; R20.2 Paresthesia of skin; G89.29 Other chronic pain; F43.10 Post-traumatic stress disorder, unspecified; G25.1 Drug-induced tremor; F15.10 Other stimulant abuse, uncomplicated; G47.33 Obstructive sleep apnea (adult) (pediatric); K21.9 Gastro-esophageal reflux disease without esophagitis; J44.9 Chronic obstructive pulmonary disease, unspecified; Z86.73 Personal history of transient ischemic attack (TIA), and cerebral infarction without residual deficits; G43.909 Migraine, unspecified, not intractable, without status migrainosus; Z95.5 Presence of coronary angioplasty implant and graft; F17.200 Nicotine dependence, unspecified, uncomplicated; Z88.8 Allergy status to other drugs, medicaments and biological substances; Z88.0 Allergy status to penicillin; Z88.6 Allergy status to analgesic agent; Z91.030 Bee allergy status; Z91.018 Allergy to other foods; Z79.899 Other long term (current) drug therapy; Z79.02 Long term (current) use of antithrombotics/antiplatelets; Z79.891 Long term (current) use of opiate analgesic
CPT/HCPCS: 36415; 80048; 80053; 83735; 85027; G0378

== ENCOUNTER 2024-12-12 00:39 | Inpatient (IN) | payer OTHER, MEDICAID ==
[2024-12-12] VITALS (15 sets, daily range): BP systolic 122–155; BP diastolic 51–86; TEMP 96.8–97.9; O2SAT 91–99
[~2024-12-12 00:39] MED LIST changes: +AMLO1TAB25 PO
[2024-12-12 01:30] LABS: BASO % 0.2 % (0.0-1.0); EOS # 0.2 10^3/uL (0.0-0.5); EOS % 4.1 % (0.0-3.0); HEMATOCRIT 23.5 % (42.0-52.0); LYMPH # 1.6 10^3/uL (1.5-5.0); LYMPH % 31.8 % (24.0-44.0); MEAN CORPUSCULAR HEMOGLOBIN 20.5 pg (27.0-33.0); MEAN CORPUSCULAR HGB CONC 28.1 g/dl (32.0-36.5); MONO # 0.5 10^3/uL (0.0-0.8); MONO % 9.1 % (2.0-8.0); NEUTROPHILS # 2.7 10^3/uL (1.5-8.5); NEUTROPHILS % 54.4 % (36.0-66.0); PLATELET COUNT, AUTOMATED 170 10^3/uL (150-450); RED BLOOD COUNT 3.22 10^6/uL (4.30-6.10); WHITE BLOOD COUNT 4.9 10^3/uL (4.0-10.0)
[2024-12-12 01:40] LABS: INR 0.94; PROTHROMBIN TIME 12.9 SECONDS (12.5-14.5)
[2024-12-12 01:56] LABS: BLOOD UREA NITROGEN 11 MG/DL (9-23); CALCIUM LEVEL 8.1 MG/DL (8.5-10.1); CARBON DIOXIDE LEVEL 26 MMOL/L (20-31); CHLORIDE LEVEL 99 MMOL/L (98-107); CREATININE FOR GFR 0.79 MG/DL (0.70-1.30); GLOMERULAR FILTRATION RATE > 60.0 (>56); GLUCOSE, FASTING 91 MG/DL (60-100); POTASSIUM SERUM 3.5 MMOL/L (3.5-5.1); SODIUM LEVEL 133 MMOL/L (136-145)
[2024-12-12 02:07] LABS: HEMOGLOBIN 6.6 g/dl (13.5-17.5)
[2024-12-12] MEDS: ONDANSETRON 4MG 2ML VIAL IV ONE (02:48)
[2024-12-12] MEDS: MORPHINE 4 MG/ML 1ML VIAL IV PRN (02:49)
[2024-12-12] MEDS ORDERED: MAALOX 30 ML SUSP *UDC PO PRN (03:40)
[2024-12-12] MEDS ORDERED: MORPHINE 2 MG/ML 1ML VIAL IV PRN (03:40)
[2024-12-12 03:48] LABS: ALBUMIN 3.4 G/DL (3.2-5.2); ALKALINE PHOSPHATASE 77 U/L (40-129); ALT/SGPT 18 U/L (7.0-40); AST/SGOT 18 U/L (<34); BILIRUBIN,DIRECT 0.1 MG/DL (<0.4); BILIRUBIN,TOTAL 0.3 MG/DL (0.3-1.2); TOTAL PROTEIN 6.7 G/DL (5.7-8.2)
[2024-12-12] MEDS ORDERED: METO1TAB87 PO (05:08)
[2024-12-12] MEDS ORDERED: IPRA0.00 INH (05:08)
[2024-12-12] MEDS ORDERED: ROSU10TA61 PO (05:08)
[2024-12-12] MEDS: NICOTINE 14 MG/24 HR TRANSDERMAL TD ONE (05:08)
[2024-12-12] MEDS ORDERED: OXYC-141 PO (05:08)
[2024-12-12] MEDS: MULTIVITAMINS/MINERALS THERAP 1 TAB PO ONE (05:09)
[2024-12-12] MEDS: ACETAMINOPHEN *IV* 500 MG in IV 1 EA IV ONE (05:09)
[2024-12-12] MEDS: LORazepam 2 MG TAB PO PRN (05:09)
[2024-12-12] MEDS: diphenhydrAMINE 50MG/ML VIAL IV ONE (05:10)
[2024-12-12] MEDS: PANTOPRAZOLE 40MG VIAL IV STA (05:10)
[2024-12-12] MEDS ORDERED: HOME MED LIST COMPLETE! XX SCH (05:10)
[2024-12-12] MEDS: FUROSEMIDE 40MG/4ML VIAL IV ONE (05:10)
[2024-12-12] MEDS ORDERED: ALBUTEROL SULFATE 2.5MG/0.5ML INH NEB SOLN NEB PRN (06:15)
[2024-12-12] MEDS ORDERED: ISOVUE-370 76% 100ML VIAL As Ordered ONE (07:19)
[2024-12-12] MEDS: FOLIC ACID 1MG TAB PO SCH (07:54)
[2024-12-12] MEDS: DOCUSATE SODIUM 100MG CAPSULE PO SCH (07:54)
[2024-12-12] MEDS: oxyCODONE 10 MG CR TAB PO SCH (07:54)
[2024-12-12] MEDS: CitaloPRAM (CeleXA) 20 MG TAB PO SCH (07:54)
[2024-12-12] MEDS: THIAMINE 100 MG TAB PO SCH (07:55)
[2024-12-12] MEDS: METOPROLOL TART 25 MG TABLET PO SCH (07:55)
[2024-12-12] MEDS: ROSUVASTATIN 10 MG TAB (CRESTOR) PO SCH (07:55)
[2024-12-12] MEDS: IPRATROPIUM 0.5MG/ALBUTEROL 2.5MG INH SOL UD 3ML (DUONEB) NEB SCH (08:42)
[2024-12-12] MEDS: predniSONE 20 MG TAB PO SCH (11:03)
[2024-12-12] MEDS: NICOTINE 21MG/24HR 1 EA TRANSDERMAL TD SCH (11:03)
[2024-12-12] MEDS: diazePAM 5MG TABLET PO SCH (11:04)
[2024-12-12] MEDS: MORPHINE 2 MG/ML 1ML VIAL IV PRN (11:11)
[2024-12-12 11:51] LABS: CA19-9 TUMOR MARKER,CARBOHYDRA 12.2 U/ML (<35.0)
[2024-12-12 13:44] LABS: BASO % 0.2 % (0.0-1.0); EOS # 0.2 10^3/uL (0.0-0.5); EOS % 3.7 % (0.0-3.0); HEMATOCRIT 32.5 % (42.0-52.0); HEMOGLOBIN 9.5 g/dl (13.5-17.5); LYMPH % 15.4 % (24.0-44.0); MEAN CORPUSCULAR HEMOGLOBIN 22.2 pg (27.0-33.0); MEAN CORPUSCULAR HGB CONC 29.2 g/dl (32.0-36.5); MEAN CORPUSCULAR VOLUME 75.9 fl (80.0-96.0); MONO # 0.3 10^3/uL (0.0-0.8); MONO % 4.1 % (2.0-8.0); NEUTROPHILS % 76.1 % (36.0-66.0); PLATELET COUNT, AUTOMATED 174 10^3/uL (150-450); RED BLOOD COUNT 4.28 10^6/uL (4.30-6.10); WHITE BLOOD COUNT 6.6 10^3/uL (4.0-10.0)
[2024-12-12] MEDS: SUCRALFATE 1 GM TAB PO SCH (13:44)
[2024-12-12] MEDS: ONDANSETRON 4MG 2ML VIAL IV PRN (17:00)
[2024-12-12] MEDS ORDERED: NORCO, ANEXSIA 5/325MG TABLET (HYDROcodone/ACETAMINOPHEN) PO PRN (17:30)
[2024-12-12] MEDS: NORCO, ANEXSIA 5/325MG TABLET (HYDROcodone/ACETAMINOPHEN) PO PRN (17:44)
[2024-12-12] MEDS: PANTOPRAZOLE 40MG VIAL IV SCH (17:44)
[2024-12-12 19:12] LABS: HEMATOCRIT 33.6 % (42.0-52.0); HEMOGLOBIN 9.8 g/dl (13.5-17.5); LYMPH # 0.5 10^3/uL (1.5-5.0); LYMPH % 8.6 % (24.0-44.0); MEAN CORPUSCULAR HEMOGLOBIN 22.3 pg (27.0-33.0); MEAN CORPUSCULAR HGB CONC 29.2 g/dl (32.0-36.5); MEAN CORPUSCULAR VOLUME 76.4 fl (80.0-96.0); MONO # 0.1 10^3/uL (0.0-0.8); MONO % 1.4 % (2.0-8.0); NEUTROPHILS # 5.6 10^3/uL (1.5-8.5); NEUTROPHILS % 89.5 % (36.0-66.0); PLATELET COUNT, AUTOMATED 167 10^3/uL (150-450); WHITE BLOOD COUNT 6.3 10^3/uL (4.0-10.0)
== END 2024-12-12 20:14 | disposition left against medical advice (07) | DRG 812 ==
LOC: M ED 00:39 → M ED INP 03:37 → M MSPAV 16:10
PROVIDERS: ADMIT Student in an Organized Health Care Education/Training Program; ATTEND Student in an Organized Health Care Education/Training Program
PROC: 30233N1 Transfusion of Nonautologous Red Blood Cells into Peripheral Vein, Percutaneous Approach (ICD-10-PCS; principal; 2024-12-12)
DX: D50.0 Iron deficiency anemia secondary to blood loss (chronic) (principal); F11.20 Opioid dependence, uncomplicated; K92.2 Gastrointestinal hemorrhage, unspecified; J44.1 Chronic obstructive pulmonary disease with (acute) exacerbation; I25.10 Atherosclerotic heart disease of native coronary artery without angina pectoris; F10.10 Alcohol abuse, uncomplicated; K21.9 Gastro-esophageal reflux disease without esophagitis; I10 Essential (primary) hypertension; E78.5 Hyperlipidemia, unspecified; F43.10 Post-traumatic stress disorder, unspecified; G89.29 Other chronic pain; M54.9 Dorsalgia, unspecified; F32.A Depression, unspecified; F17.200 Nicotine dependence, unspecified, uncomplicated; F41.9 Anxiety disorder, unspecified; Z79.02 Long term (current) use of antithrombotics/antiplatelets; Z79.899 Other long term (current) drug therapy; Z88.0 Allergy status to penicillin; Z88.6 Allergy status to analgesic agent; Z88.8 Allergy status to other drugs, medicaments and biological substances; Z91.018 Allergy to other foods; Z91.030 Bee allergy status; Z86.73 Personal history of transient ischemic attack (TIA), and cerebral infarction without residual deficits; Z95.5 Presence of coronary angioplasty implant and graft

== ENCOUNTER 2024-12-21 23:43 | Emergency (ER) | payer OTHER, MEDICAID ==
[~2024-12-21] VITALS: Ht 167.6 cm; Wt 72.9 kg
[~2024-12-21 23:43] MED LIST changes: +IPRA0.00 INH; +OXYC-141 PO; +ROSU10TA61 PO
[2024-12-21] MEDS: LORazepam 2 MG/ML 1ML VIAL IV STA (23:57)
[2024-12-22 00:15] LABS: VENOUS BASE EXCESS -5.2 (-2.0-2.0); VENOUS HCO3 20.2 MMOL/L (23.0-27.0); VENOUS O2 SATURATION 94.1 % (60.0-80.0); VENOUS PARTIAL PRESSURE CO2 38.4 mmHg (38.0-50.0); VENOUS PH 7.338 UNITS (7.330-7.430); VENOUS STANDARD HCO3 20.1 MMOL/L; VENOUS TOTAL CO2 21.3 MMOL/L (24.0-28.0)
[2024-12-22 00:30] LABS: BASO % 0.4 % (0.0-1.0); EOS # 0.1 10^3/uL (0.0-0.5); EOS % 1.5 % (0.0-3.0); HEMATOCRIT 33.1 % (42.0-52.0); HEMOGLOBIN 9.6 g/dl (13.5-17.5); LYMPH # 1.8 10^3/uL (1.5-5.0); LYMPH % 22.8 % (24.0-44.0); MEAN CORPUSCULAR HEMOGLOBIN 22.1 pg (27.0-33.0); MEAN CORPUSCULAR VOLUME 76.3 fl (80.0-96.0); MONO # 0.6 10^3/uL (0.0-0.8); MONO % 7.7 % (2.0-8.0); NEUTROPHILS # 5.2 10^3/uL (1.5-8.5); NEUTROPHILS % 67.2 % (36.0-66.0); PLATELET COUNT, AUTOMATED 288 10^3/uL (150-450); RED BLOOD COUNT 4.34 10^6/uL (4.30-6.10); WHITE BLOOD COUNT 7.8 10^3/uL (4.0-10.0)
[2024-12-22 00:45] LABS: ETHYL ALCOHOL (ETHANOL) 0.052 % (0.000-0.010)
[2024-12-22] MEDS: ONDANSETRON 4MG 2ML VIAL IV ONE (00:46)
[2024-12-22 00:47] LABS: ALBUMIN 3.5 G/DL (3.2-5.2); ALKALINE PHOSPHATASE 81 U/L (40-129); ALT/SGPT 14 U/L (7.0-40); AST/SGOT 23 U/L (<34); BILIRUBIN,DIRECT 0.1 MG/DL (<0.4); BILIRUBIN,TOTAL 0.3 MG/DL (0.3-1.2); BLOOD UREA NITROGEN 11 MG/DL (9-23); CALCIUM LEVEL 8.6 MG/DL (8.5-10.1); CARBON DIOXIDE LEVEL 23 MMOL/L (20-31); CHLORIDE LEVEL 103 MMOL/L (98-107); CK-MB VALUE MASS 3.9 NG/ML (<3.6); CPK CREATINE PHOSPHOKINASE 167 U/L (46-171); CREATININE FOR GFR 0.75 MG/DL (0.70-1.30); GLOMERULAR FILTRATION RATE > 60.0 (>56); GLUCOSE, FASTING 69 MG/DL (60-100); MB/CK RELATIVE INDEX 2.33 (< OR =4); POTASSIUM SERUM 4.3 MMOL/L (3.5-5.1); SODIUM LEVEL 137 MMOL/L (136-145); TOTAL PROTEIN 6.9 G/DL (5.7-8.2)
[2024-12-22] MEDS: MORPHINE 4 MG/ML 1ML VIAL IV PRN (00:47)
[2024-12-22] MEDS ORDERED: ISOVUE-370 76% 100ML VIAL As Ordered ONE (00:59)
[2024-12-22 01:36] LABS: CK-MB VALUE MASS 3.5 NG/ML (<3.6)
[2024-12-22 01:37] LABS: MB/CK RELATIVE INDEX 2.33 (< OR =4)
[2024-12-22 03:07] LABS: CK-MB VALUE MASS 2.8 NG/ML (<3.6)
[2024-12-22 03:08] LABS: MB/CK RELATIVE INDEX 2.05 (< OR =4)
[2024-12-22 03:15] VITALS: BP 155/74; TEMP 99.3; O2SAT 94
== END 2024-12-22 03:21 | disposition home or self-care (01) ==
LOC: EDBD 23:43 → M ED 23:43
DX: R07.9 Chest pain, unspecified (principal); F41.9 Anxiety disorder, unspecified; R00.0 Tachycardia, unspecified; I45.10 Unspecified right bundle-branch block; I25.119 Atherosclerotic heart disease of native coronary artery with unspecified angina pectoris; I10 Essential (primary) hypertension; E78.5 Hyperlipidemia, unspecified; J45.909 Unspecified asthma, uncomplicated; J44.9 Chronic obstructive pulmonary disease, unspecified; F43.10 Post-traumatic stress disorder, unspecified; Z88.0 Allergy status to penicillin; Z88.6 Allergy status to analgesic agent; Z91.030 Bee allergy status; Z79.51 Long term (current) use of inhaled steroids; Z79.899 Other long term (current) drug therapy
CPT/HCPCS: 71045; 71275; 80048; 80076; 82077; 82550; 82553; 82803; 83880; 84484; 85025; 93005; 93041; 94760; 96374; 96375; 99285; J2060; J2405; Q9967